=== PATIENT | female | born 1935 | race Caucasian/White ===

== ENCOUNTER 2017-10-01 13:38 | Observation (INO) ==
[2017-10-01] MEDS ORDERED: 0.9 % Sodium Chloride 1,000 ML IVC ONE (13:49)
[2017-10-01 14:07] LABS: Bilirubin,Urine Negative (Negative); Blood,Urine Trace (Negative); Clarity,Urine Cloudy (Clear); Color,Urine Yellow (Yellow); Glucose,Urine (UA) Normal (Normal); Ketones,Urine Negative (Negative); Leukocyte Esterase,Urine Trace (Negative); Nitrite,Urine Positive (Negative); Protein,Urine Negative (Neg-Trace); Specific Gravity,Urine 1.013 (1.010-1.025); Urobilinogen,Urine Normal (Normal)
[2017-10-01 14:09] LABS: Bacteria,Urine Many per hpf (None-Few); Hyaline Casts,Urine None Seen per lpf (None-Few); RBC,Urine 0-3 per hpf (0-3); Squamous Epithelial Cell,Urine Many per lpf (None-Few)
[2017-10-01 14:15] LABS: Basophils # 0.1 K/mcL (0.0-0.2); Basophils % 0.8 %; Eosinophils % 0.1 %; Hematocrit 42.2 % (35.3-44.9); Hemoglobin 13.2 g/dL (11.5-15.4); Immature Granulocytes % 0.9 % (0-4); Lymphocytes # 0.5 K/mcL (0.6-4.6); Lymphocytes % 6.2 %; Mean Corpuscular HGB Conc 31.3 g/dL (31.6-35.5); Mean Corpuscular Hemoglobin 29.2 pg (28.0-33.3); Mean Corpuscular Volume 93.4 fL (83.0-100.0); Mean Platelet Volume 9.9 fL (9.4-12.4); Monocytes # 0.5 K/mcL (0.0-1.3); Monocytes % 6.7 %; Neutrophils # 6.8 K/mcL (1.6-8.9); Platelet Count 271 K/mcL (140-400); Red Blood Count 4.52 M/mcL (3.82-4.97); Segmented Neutrophils % 85.3 %
[2017-10-01] MEDS ORDERED: cefTRIAXone 1,000 MG in Water for inj. (sterile) 10 ML IVP ONE (14:16)
--- NOTE | 2017-10-01 14:21 | Emergency Department Note ---
Disposition Clinical Impression: Near syncope, Hypokalemia, Hyponatremia, History of atrial fibrillation UTI (urinary tract infection) Qualifiers: Urinary tract infection type: site unspecified Hematuria presence: with hematuria Qualified Code(s): N39.0 - Urinary tract infection, site not specified ; R31.9 - Hematuria, unspecified; R31.9 - Hematuria, unspecified Disposition: Admitted As Inpatient Condition: Fair Time of Disposition: 15:07 Syncope HPI - General Chief Complaint: ED Syncope Stated Complaint: syncope Time Seen by Provider: 10/01/17 13:48 Nursing Notes Reviewed: Yes Vital Signs Reviewed: Yes - History of Present Illness HPI Narrative: 82-year-old female brought in for 2 day history of fatigue and UTI symptoms with dysuria, frequency. Patient states she was then say when she felt lightheaded and almost passed out. Patient's caught her and helped her to the floor. Patient brought in by EMS for the syncopal episode as well. - Related Data Home Medications Medication Instructions Recorded Confirmed Aspirin 325 mg PO DAILY 03/24/16 05/09/16 Calcium Carbonate [Calcium] 600 mg PO BID 03/24/16 05/09/16 Diltiazem CD (24hr) [Cardizem CD] 240 mg PO DAILY 03/24/16 05/09/16 Furosemide [Lasix] 40 - 80 mg PO DAILY 03/24/16 05/09/16 Metoprolol XL (24 HR) Succ [Toprol 100 mg PO DAILY 03/24/16 05/09/16 Xl] [place]-3/Dha/Epa/Fish Oil [Fish Oil 1,000 mg PO DAILY 03/24/16 05/09/16 Dr 500 mg Softgel] Omeprazole [PriLOSEC] 40 mg PO DAILY 03/24/16 05/09/16 Potassium Chloride [K-Tab ER] 10 meq PO DAILY 03/24/16 05/09/16 Atorvastatin [Lipitor] 40 mg PO Q48H 05/09/16 05/09/16 Iron Polysaccharide Complex 150 mg PO BID 05/09/16 05/09/16 [Ferrex 150] Nitroglycerin [Nitrostat] 0.4 mg SL Q5M PRN 05/09/16 05/09/16 Sucralfate [Carafate] 1 gm PO QIDAC 08/04/16 08/04/16 Latanoprost [Xalatan] 1 drop BOTH EYES HS 10/01/17 10/01/17 Timolol Maleate 0.5% [Timolol 1 drop BOTH EYES BID 10/01/17 10/01/17 Maleate 0.5%] Allergies Allergy/AdvReac Type Severity Reaction Status Date / Time No Known Allergies Allergy Verified 05/09/16 09:57 All systems ED: reviewed and negative except as stated. Review of Systems: As Per HPI Constitutional: Reports: weakness. Denies: fever, chills Eyes: Denies: vision change ENT ED: Denies: congestion Cardiovascular: Denies: chest pain Respiratory: Denies: cough, dyspnea, wheezes Gastrointestinal: Denies: abdominal pain, nausea, vomiting, diarrhea Genitourinary: Reports: urgency, dysuria, frequency Musculoskeletal: Denies: back pain, neck pain Past Medical History - Past Medical History Attestation: Yes The following information was validated with the patient. Source: patient, nursing notes reviewed Medical history: Reports: atrial fibrillation, coronary artery disease, hyperlipidemia, hypertension, TIA, other Surgical history: Reports: other Psychiatric history: Reports: no psych history - Social History Smoking Status: Former smoker Smokeless Tobacco Status: No Alcohol use: Reports: none Drug use: Reports: none Physical Exam Vital Signs Pulse Rate 80 10/01/17 14:02 Respiratory Rate 16 10/01/17 14:02 Blood Pressure 157/63 10/01/17 14:02 O2 Sat by Pulse Oximetry 95 10/01/17 14:02 Pulse Rate 80 10/01/17 14:02 Respiratory Rate 16 10/01/17 14:02 Blood Pressure 157/63 10/01/17 14:02 O2 Sat by Pulse Oximetry 95 10/01/17 14:02 Oxygen Delivery Oxygen Delivery Room Air 82-year-old female who is alert and oriented 3 in no acute distress. Patient has GCS of 15. Patient has a NIH score of 0. Vital signs normal with exception of blood pressure which is 157/63. - General Limitations: no limitations - Head Head exam: atraumatic, normocephalic, normal inspection - Eye Eye exam: Present: normal appearance, PERRL, EOMI - ENT ENT exam: normal exam, normal oropharynx, mucous membranes moist - Neck Neck exam: Present: normal inspection, full ROM, trachea midline - Chest Chest inspection: Present: normal inspection, symmetric chest wall rise - Respiratory Respiratory exam: Present: normal lung sounds bilaterally - Cardiovascular Cardiovascular exam: Present: regular rate, normal rhythm, normal heart sounds - Abdominal Exam Abdominal exam: Present: soft. Absent: tenderness, distention, guarding, rebound, rigidity Abdominal tenderness: Present: suprapubic - Extremities Exam Extremities exam: Present: normal inspection, full ROM. Absent: tenderness, pedal edema - Back Exam Back exam: Present: normal inspection, full ROM. Absent: tenderness, CVA tenderness (R), CVA tenderness (L) - Neurological Exam Neurological exam: Present: alert, oriented X3 - Skin Skin exam: Present: warm, dry, intact, normal color Syncope - MDM Narrative Medical decision making narrative: Presyncopal episode. Patient states she has been having dysuria and frequency for the past 2 days. Patient has had fatigue as well. Patient has a UTI on urinalysis and was started on ceftriaxone 1 g IV. Plans for patient to be admitted for syncopal episode secondary to urinary tract infection. Patient also has chemistry abnormalities for hyponatremia and hypokalemia. Patient started on oral potassium supplementation and has IV normal saline running. Patient is on her second liter. Chest x-ray clear of any pneumonia which shows some cardiomegaly, no pleural effusions Patient accepts decision for admission. Dr. House the hospitalist as except the patient for admission at 1505hrs. - Lab Data Lab results reviewed: Yes I reviewed the patient's lab results. Lab results narrative: Short CBC 10/01/17 Range/Units 14:08 WBC 7.9 (4.3-11.1) K/mcL Hgb 13.2 (11.5-15.4) g/dL Hct 42.2 (35.3-44.9) % Plt Count 271 (140-400) K/mcL Neutrophils # 6.8 (1.6-8.9) K/mcL BMP 10/01/17 Range/Units 14:08 Sodium 132 L (136-145) mEq/L Potassium 3.1 L (3.5-5.1) mEq/L Chloride 98 (98-107) mEq/L Carbon Dioxide 26 (23-29) mEq/L BUN 8 (8-23) mg/dL Creatinine 0.61 (0.60-1.20) mg/dL Glucose 179 H (70-105) mg/dL Calcium 9.0 (8.6-10.3) mg/dL Cardiac Enzymes 10/01/17 Range/Units 14:08 Troponin I < 0.03 (< 0.04) ng/mL Urine 10/01/17 Range/Units 14:02 Urine Color Yellow (Yellow) Urine Clarity Cloudy A (Clear) Urine pH 7.0 (5.0-8.0) pH Units Ur Specific [place] 1.013 (1.010-1.025) Urine Protein Negative (Neg-Trace) mg/dL Urine Glucose (UA) Normal (Normal) mg/dL - Radiology Data Radiology results reviewed: Yes I reviewed the patient's radiology results. Chest X-Ray 10/01/17 13:49 IMPRESSION: Cardiomegaly with questionable mild perihilar edema. No focal infiltrate or significant pleural fluid. D/ / Yohan Bernstein MD / Yohan Bernstein MD Interpreting Provider: Yohan Bernstein MD - EKG Data EKG attestation: Yes I reviewed and interpreted this EKG. EKG results narrative: EKG taken 10/01/2017 at 1330 hrs. shows A. fib at a rate of 87 bpm, patient has incomplete bundle branch block on read as well. Patient has some ST depression previous EKG also shows incomplete right of bundle branch block same morphology as today's EKG that EKG taken April 2016.
--- NOTE | 2017-10-01 14:22 | Emergency Department Note ---
START Narrative - START START: I examined this patient and my medical decision-making was reviewed with the Resident Physician. I agree with the documented findings, disposition and treatment plan as described except to the extent set forth below. 82-year-old female presented to the ER with near syncope and weakness. She does have evidence of urinary tract infection. She said some urinary symptoms. Her caught her today when she almost fell due to the weakness. She states she had some chest pain as well during this episode but has since resolved. No other complaints at this time other than just generalized weakness but she states she feels better now. She does have evidence of urinary tract infection. Positive nitrites. Patient was given antibiotics. She will need to be admitted for further cardiac evaluation and workup as well as treatment of her UTI.
[2017-10-01 14:29] LABS: BUN/Creatinine Ratio 13 (6-26); Blood Urea Nitrogen 8 mg/dL (8-23); Carbon Dioxide 26 mEq/L (23-29); Chloride 98 mEq/L (98-107); Glucose 179 mg/dL (70-105); Osmolality,Calculated 277 (280-300); Potassium 3.1 mEq/L (3.5-5.1); Sodium 132 mEq/L (136-145); eGFR For African Americans > 60 (> 60); eGFR For Non-African Americans > 60 (> 60)
--- NOTE | 2017-10-01 15:46 | Internal Med History&Physical ---
Date of Encounter: 10/02/17 Time of Encounter: 15:53 Assessment and Plan (1) UTI (urinary tract infection) Current visit: Yes Status: Acute We will start empiric ABs coverage Obtain Ur Cx and adjuxt ABs regimen accordingly Qualifiers: Urinary tract infection type: site unspecified Hematuria presence: with hematuria Qualified Code(s): N39.0 - Urinary tract infection, site not specified; R31.9 - Hematuria, unspecified; R31.9 - Hematuria, unspecified (2) Near syncope Current visit: Yes Status: Acute The patient denied blackout or feeling dizzy, She stated that her legs felt week and gave away. (3) CAD (coronary artery disease) Current visit: No Status: Chronic We will cont. home meds. Qualifiers: Coronary Disease-Associated Artery/Lesion type: [place] artery [place] vs. transplanted heart: [place] heart Associated angina: without angina Qualified Code(s): I25.10 - Atherosclerotic heart disease of [place] coronary artery without angina pectoris (4) Paroxysmal atrial fibrillation Current visit: No Status: Chronic She is in sinus rhythm , Cont home meds. (5) Chronic pulmonary hypertension Current visit: No Status: Chronic (6) HTN (hypertension) Current visit: No Status: Chronic We will cont home meds. Qualifiers: Hypertension type: essential hypertension Qualified Code(s): I10 - Essential (primary) hypertension (7) HLD (hyperlipidemia) Current visit: No Status: Chronic We will cont statin and obtain FLP in [place] Qualifiers: Hyperlipidemia type: unspecified Qualified Code(s): E78.5 - Hyperlipidemia , unspecified (8) Iron deficiency anemia Current visit: No Status: Chronic Hgb is stable, will cont iron supplements Qualifiers: Iron deficiency anemia type: inadequate dietary iron intake Qualified Code( s): D50.8 - Other iron deficiency anemias (9) Hyponatremia Current visit: Yes Status: Acute Mild hypovolimic hyponatermia, starting fluid hydration with isotonic solution. (10) Hypokalemia Current visit: Yes Status: Acute We will replace. (11) DVT prophylaxis Current visit: Yes Status: Acute We will place SCD. Internal Medicine - H&P: HPI Chief complaint: My legs gave away Admitted From: Home History of present illness: Ms. Mooney is a 82 year old female who present with 2 day history of fatigue dysuria, frequency. Patient denies syncope or near syncope , she started that her legs felt week when she was trying to stand up and they gave away. She conrad being lightheaded or passing out. Patient's caught her and helped her to the floor. Patient brought in by EMS for feeling week and fatigues. Labs was suggestive of UTI and she was admitted for further evaluation. Past Med Surg Social Fam HX - Past Medical History Medical history: atrial fibrillation, coronary artery disease, hyperlipidemia, hypertension, TIA, other Psychiatric history: no psych history - Past Surgical History Surgical History: other - Social History Smoking Status: Former smoker Smokeless Tobacco Status: No Alcohol use: none Drug use: none - Family History Mother History Unknown: Yes Internal Medicine - H&P: Meds Aspirin 325 mg PO DAILY 03/24/16 [History] Calcium Carbonate [Calcium] 600 mg PO BID 03/24/16 [History] Diltiazem CD (24hr) [Cardizem CD] 240 mg PO DAILY 03/24/16 [History] Furosemide [Lasix] 40 - 80 mg PO DAILY 03/24/16 [History] Metoprolol XL (24 HR) Succ [Toprol Xl] 100 mg PO DAILY 03/24/16 [History] [place]-3/Dha/Epa/Fish Oil [Fish Oil Dr 500 mg Softgel] 1,000 mg PO DAILY [History] Omeprazole [PriLOSEC] 40 mg PO DAILY 03/24/16 [History] Potassium Chloride [K-Tab ER] 10 meq PO DAILY 03/24/16 [History] Atorvastatin [Lipitor] 40 mg PO Q48H 05/09/16 [History] Iron Polysaccharide Complex [Ferrex 150] 150 mg PO BID 05/09/16 [History] Nitroglycerin [Nitrostat] 0.4 mg SL Q5M PRN 05/09/16 [History] Sucralfate [Carafate] 1 gm PO QID 05/09/16 [History] Latanoprost [Xalatan] 1 drop BOTH EYES HS 10/01/17 [History] Timolol Maleate 0.5% [Timolol Maleate 0.5%] 1 drop BOTH EYES BID 10/01/17 [ History] 3 Allergy/AdvReac Type Severity Reaction Status Date / Time No Known Allergies Allergy Verified 05/09/16 09:57 All Systems PM: A 10-system review of systems was performed and is negative for pertinent findings except as documented above in the HPI. - Constitutional Constitutional: fatigue, malaise, weakness, no chills, no fever(s), no night sweats - Cardiovascular Cardiovascular ROS IM: no chest pain, no diaphoresis, no dyspnea, no lightheadedness, no palpitations, no syncope - Respiratory Respiratory: no cough, no dyspnea, no wheezing, no excessive phlegm production - Gastrointestinal Gastrointestinal: no abdominal pain, no diarrhea, no hematemesis, no hematochezia, no melena, no nausea, no vomiting - Genitourinary Genitourinary: dysuria, urinary frequency, urinary urgency - Neurological Neurological ROS: no confusion, no convulsions, no focal weakness, no numbness, no tingling, no tremor(s) - Constitutional Vitals: Temp Pulse Resp BP Pulse Ox 97.5 F L 80 18 152/49 95 10/01/17 15:23 10/01/17 15:23 10/01/17 15:41 10/01/17 15:41 10/01/17 15:23 General appearance: Present: A&O X 3, pleasant - Head Head exam: Present: atraumatic, normocephalic - Neck Neck exam general surgery: Present: supple, trachea midline. Absent: lymphadenopathy - Respiratory Respiratory exam: Present: CTAB. Absent: accessory muscle use, rales, rhonchi, wheezes - Cardiovascular Cardiovascular exam: Present: RRR, +S1, +S2. Absent: diastolic murmur, gallop, rubs, systolic murmur - GI/Abdominal GI/Abdominal exam: Present: normal bowel sounds, soft, no peritoneal signs. Absent: distended, tenderness - Extremities Exam Extremities exam: Present: warm, radial pulses palpable and symmetrical. Absent : calf tenderness, cyanotic, pedal edema - Neurological Exam Neurological exam: Present: CN II-XII intact, oriented X3, no focal deficits. Absent: pronater drift, facial droop, speech deficit Internal Med - H&P Results - Labs CBC & Chem 7: 10/01/17 14:08 10/01/17 14:08
[2017-10-01] MEDS ORDERED: Naloxone 0.4 MG/ML INJ IVP PRN (16:02)
[2017-10-01] MEDS ORDERED: Nitroglycerin 0.4 MG TAB.SUBL SL PRN (16:07)
[2017-10-01] MEDS: 0.9 % Sodium Chloride 1,000 ML IVC SCH (17:17)
[2017-10-01] MEDS: Sucralfate 1 GM TABLET PO SCH ×2 (17:19→19:48)
[2017-10-01] MEDS: Iron Polysaccharide Complex 150 MG CAPSULE PO SCH (19:48)
[2017-10-01] MEDS: Latanoprost 2.5 ML BOTTLE BOTH EYES SCH (19:52)
[2017-10-02 05:08] LABS: BUN/Creatinine Ratio 13 (6-26); Blood Urea Nitrogen 8 mg/dL (8-23); eGFR For African Americans > 60 (> 60); eGFR For Non-African Americans > 60 (> 60)
[2017-10-02] MEDS: cefTRIAXone 1,000 MG in Water for inj. (sterile) 20 ML 10 ML IVP SCH (08:38)
[2017-10-02] MEDS: Aspirin 325 MG TABLET PO SCH (08:38)
[2017-10-02] MEDS: Metoprolol XL (24 HR) Succ 50 MG TAB.ER.24H PO SCH (08:38)
[2017-10-02] MEDS: Iron Polysaccharide Complex 150 MG CAPSULE PO SCH ×2 (08:38→20:05)
[2017-10-02] MEDS: Sucralfate 1 GM TABLET PO SCH ×4 (08:38→20:05)
[2017-10-02] MEDS: Diltiazem CD (24hr) 240 MG CAPSULE PO SCH (08:38)
[2017-10-02] MEDS: (Omega-3/Dha/Epa/Fish Oil [Fish Oil Dr 500 Mg Softgel) PO SCH (08:41)
[2017-10-02] MEDS: 0.9 % Sodium Chloride 1,000 ML IVC SCH (08:41)
--- NOTE | 2017-10-02 16:18 | Internal Med Progress Note ---
Date of Encounter: 10/02/17 Time of Encounter: 16:13 - Assessment and plan (1) UTI (urinary tract infection) Current Visit: Yes Status: Acute Qualifiers: Urinary tract infection type: site unspecified Hematuria presence: with hematuria Qualified Code(s): N39.0 - Urinary tract infection, site not specified; R31.9 - Hematuria, unspecified; R31.9 - Hematuria, unspecified (2) Acute bronchitis Current Visit: Yes Status: Acute Qualifiers: Bronchitis organism: unspecified organism Qualified Code(s): J20.9 - Acute bronchitis, unspecified (3) HTN (hypertension) Current Visit: No Status: Chronic Qualifiers: Hypertension type: essential hypertension Qualified Code(s): I10 - Essential (primary) hypertension (4) HLD (hyperlipidemia) Current Visit: No Status: Chronic Qualifiers: Hyperlipidemia type: unspecified Qualified Code(s): E78.5 - Hyperlipidemia , unspecified (5) CAD (coronary artery disease) Current Visit: No Status: Chronic Qualifiers: Coronary Disease-Associated Artery/Lesion type: [place] artery [place] vs. transplanted heart: [place] heart Associated angina: without angina Qualified Code(s): I25.10 - Atherosclerotic heart disease of [place] coronary artery without angina pectoris (6) Hypokalemia Current Visit: Yes Status: Acute Assessment and plan: CONTINUE IV ABX FOR UTI, FOLLOW URINE CULTURES MILD BRONCHITIS- ADD MUCINEX AND DOUNEBS, HAS HX OF REMOTE TOBACCO USE REPLACE ELECTROLYTES. CANCEL INPATIENT ORDER A REVIEW BY EHR AND A MEMBER OF THE UR COMMITTEE HAS DETERMINED THAT THE STATUS IS TO BE CHANGED TO OBSERVATION USING CONDITION CODE 44. I'M IN AGREEMENT. - Subjective Interval history: FEELS WEAK, DAUGHTER REPORTS PT HAS BEEN COUGHING - Constitutional Vitals: Temp Pulse Resp BP Pulse Ox 97.3 F L 65 18 116/61 89 10/02/17 15:33 10/02/17 15:33 10/02/17 15:33 10/02/17 15:33 10/02/17 15:33 General appearance: Present: A&O X 3, pleasant - Head Head exam: Present: atraumatic, normocephalic - Eye Eye exam: Present: PERRL, conjuntiva pink, sclera anicteric Pupils: Present: PERRL - Neck Neck exam general surgery: Present: supple, trachea midline. Absent: lymphadenopathy - Respiratory Respiratory exam: Present: rhonchi. Absent: accessory muscle use, CTAB, rales, wheezes - Cardiovascular Cardiovascular exam: Present: RRR, +S1, +S2. Absent: diastolic murmur, gallop, rubs, systolic murmur - GI/Abdominal GI/Abdominal exam: Present: normal bowel sounds, soft, no peritoneal signs. Absent: distended, tenderness - Extremities Exam Extremities exam: Present: warm, radial pulses palpable and symmetrical. Absent : calf tenderness, cyanotic, pedal edema - Neurological Exam Neurological exam: Present: CN II-XII intact, oriented X3, no focal deficits. Absent: pronater drift, facial droop, speech deficit - Skin Skin exam: Present: dry, intact Internal Medicine: Result - Labs CBC & Chem 7: 10/01/17 14:08 10/02/17 03:42 Labs: BMP 10/02/17 03:42 BUN 8 Creatinine 0.63 Consult Discharge Plan - Plan Referrals: David Linton DO [Primary Care Provider] -
[2017-10-02] MEDS ORDERED: Ipratropium/Albuterol Neb 3 ML IH STA (17:30)
--- NOTE | 2017-10-02 19:51 | Electrocardiograph Report ---
[address] [place] [address] Test Date: 2017-10-01 Pat Name: Barbra Mooney Department: 104 Room: 3B44 Gender: F [employer]: : [id number] Requested By: Jerardo Bernal Order Number: [id number] Reading MD: Isrrael Garcia MD Measurements Intervals [place] Rate: 87 P: AR: 0 QRS: 68 QRSD: 96 T: -16 QT: 357 QTc: 401 Interpretive Statements ATRIAL FIBRILLATION INCOMPLETE RIGHT BUNDLE BRANCH BLOCK Electronically Signed On 10-02-2017 19:49:54 EST by Isrrael Garcia MD
[2017-10-02] MEDS: Latanoprost 2.5 ML BOTTLE BOTH EYES SCH (20:05)
[2017-10-03 05:40] LABS: BUN/Creatinine Ratio 22 (6-26); Blood Urea Nitrogen 11 mg/dL (8-23); Calcium 8.4 mg/dL (8.6-10.3); Carbon Dioxide 22 mEq/L (23-29); Chloride 103 mEq/L (98-107); Glucose 102 mg/dL (70-105); Osmolality,Calculated 278 (280-300); Potassium 3.5 mEq/L (3.5-5.1); Sodium 134 mEq/L (136-145); eGFR For African Americans > 60 (> 60); eGFR For Non-African Americans > 60 (> 60)
[2017-10-03 05:55] LABS: Basophils % 0.5 %; Hemoglobin 12.2 g/dL (11.5-15.4); Immature Granulocytes % 1.1 % (0-4); Lymphocytes # 0.8 K/mcL (0.6-4.6); Lymphocytes % 15.2 %; Mean Corpuscular HGB Conc 31.3 g/dL (31.6-35.5); Mean Corpuscular Hemoglobin 29.5 pg (28.0-33.3); Mean Corpuscular Volume 94.4 fL (83.0-100.0); Mean Platelet Volume 10.1 fL (9.4-12.4); Monocytes # 0.6 K/mcL (0.0-1.3); Monocytes % 10.1 %; Platelet Count 209 K/mcL (140-400); Red Blood Count 4.13 M/mcL (3.82-4.97); Red Cell Distribution Width 15.9 % (11.5-14.5); Segmented Neutrophils % 73.1 %
[2017-10-03] MEDS: Iron Polysaccharide Complex 150 MG CAPSULE PO SCH ×2 (08:20→20:26)
[2017-10-03] MEDS: Aspirin 325 MG TABLET PO SCH (08:20)
[2017-10-03] MEDS: Sucralfate 1 GM TABLET PO SCH ×4 (08:20→20:26)
[2017-10-03] MEDS: Diltiazem CD (24hr) 240 MG CAPSULE PO SCH (08:21)
[2017-10-03] MEDS: cefTRIAXone 1,000 MG in Water for inj. (sterile) 20 ML 10 ML IVP SCH (08:21)
[2017-10-03] MEDS: Metoprolol XL (24 HR) Succ 50 MG TAB.ER.24H PO SCH (08:21)
[2017-10-03] MEDS: (Omega-3/Dha/Epa/Fish Oil [Fish Oil Dr 500 Mg Softgel) PO SCH (08:22)
[2017-10-03] MEDS ORDERED: methylPREDNISolone 125 MG/2 ML VIAL IVP STA (10:28)
--- NOTE | 2017-10-03 10:37 | Internal Med Progress Note ---
Date of Encounter: 10/03/17 Time of Encounter: 10:34 - Assessment and plan (1) UTI (urinary tract infection) Current Visit: Yes Status: Acute Qualifiers: Urinary tract infection type: site unspecified Hematuria presence: with hematuria Qualified Code(s): N39.0 - Urinary tract infection, site not specified; R31.9 - Hematuria, unspecified; R31.9 - Hematuria, unspecified (2) Acute bronchitis Current Visit: Yes Status: Acute Qualifiers: Bronchitis organism: unspecified organism Qualified Code(s): J20.9 - Acute bronchitis, unspecified (3) HTN (hypertension) Current Visit: No Status: Chronic Qualifiers: Hypertension type: essential hypertension Qualified Code(s): I10 - Essential (primary) hypertension (4) HLD (hyperlipidemia) Current Visit: No Status: Chronic Qualifiers: Hyperlipidemia type: unspecified Qualified Code(s): E78.5 - Hyperlipidemia , unspecified (5) CAD (coronary artery disease) Current Visit: No Status: Chronic Qualifiers: Coronary Disease-Associated Artery/Lesion type: [place] artery [place] vs. transplanted heart: [place] heart Associated angina: without angina Qualified Code(s): I25.10 - Atherosclerotic heart disease of [place] coronary artery without angina pectoris (6) Hypokalemia Current Visit: Yes Status: Acute Assessment and plan: 82YO FEMALE WHO PRESENTED WITH NEAR SYNCOPE AND FOUND TO HAVE UTI AND BRONCHITIS. CONTINUE IV ABX FOR UTI, STILL WAITING FOR URINE CULTURES. ACUTE BRONCHITIS WITH BRONCHOSPASM- NOW WHEEZING, WILL ADD STEROIDS, CONTINUE MUCINEX AND DOUNEBS, HAS HX OF REMOTE TOBACCO USE MONIOTOR ELECTROLYTES. - Subjective Interval history: FEELS WEAK, DAUGHTER REPORTS PT HAS BEEN COUGHING - Constitutional Vitals: Temp Pulse Resp BP Pulse Ox 99.1 F 82 16 150/58 92 10/03/17 07:20 10/03/17 07:20 10/03/17 07:20 10/03/17 07:20 10/03/17 07:20 General appearance: Present: A&O X 3, pleasant - Head Head exam: Present: atraumatic, normocephalic - Eye Eye exam: Present: PERRL, conjuntiva pink, sclera anicteric Pupils: Present: PERRL - Neck Neck exam general surgery: Present: supple, trachea midline. Absent: lymphadenopathy - Respiratory Respiratory exam: Present: decreased breath sounds, rhonchi, wheezes. Absent: accessory muscle use, rales - Cardiovascular Cardiovascular exam: Present: RRR, +S1, +S2. Absent: diastolic murmur, gallop, rubs, systolic murmur - GI/Abdominal GI/Abdominal exam: Present: normal bowel sounds, soft, no peritoneal signs. Absent: distended, tenderness - Extremities Exam Extremities exam: Present: warm, radial pulses palpable and symmetrical. Absent : calf tenderness, cyanotic, pedal edema - Neurological Exam Neurological exam: Present: CN II-XII intact, oriented X3, no focal deficits. Absent: pronater drift, facial droop, speech deficit - Skin Skin exam: Present: dry, intact Internal Medicine: Result - Labs CBC & Chem 7: 10/03/17 05:05 10/03/17 05:05 Labs: Short CBC 10/03/17 Range/Units 05:05 WBC 5.5 (4.3-11.1) K/mcL Hgb 12.2 (11.5-15.4) g/dL Hct 39.0 (35.3-44.9) % Plt Count 209 (140-400) K/mcL Neutrophils # 4.0 (1.6-8.9) K/mcL BMP 10/03/17 05:05 Sodium 134 L Potassium 3.5 Chloride 103 Carbon Dioxide 22 L BUN 11 Creatinine 0.49 L Glucose 102 Calcium 8.4 L Consult Discharge Plan - Plan Referrals: David Linton DO [Primary Care Provider] -
[2017-10-03] MEDS ORDERED: Ipratropium/Albuterol Neb 3 ML ONE (16:01)
[2017-10-03] MEDS: Ipratropium/Albuterol Neb 3 ML IH SCH ×3 (16:03→23:51)
[2017-10-03] MEDS: methylPREDNISolone 125 MG/2 ML VIAL IVP SCH ×2 (16:14→20:42)
[2017-10-03] MEDS: Latanoprost 2.5 ML BOTTLE BOTH EYES SCH (20:27)
[2017-10-04] MEDS: Ipratropium/Albuterol Neb 3 ML IH SCH ×5 (03:55→20:04)
[2017-10-04] MEDS: methylPREDNISolone 125 MG/2 ML VIAL IVP SCH ×4 (05:00→21:18)
[2017-10-04 05:13] LABS: Hematocrit 39.3 % (35.3-44.9); Hemoglobin 12.5 g/dL (11.5-15.4); Immature Granulocytes % 0.8 % (0-4); Lymphocytes # 0.6 K/mcL (0.6-4.6); Lymphocytes % 22.9 %; Mean Corpuscular HGB Conc 31.8 g/dL (31.6-35.5); Mean Corpuscular Hemoglobin 29.7 pg (28.0-33.3); Mean Corpuscular Volume 93.3 fL (83.0-100.0); Mean Platelet Volume 10.3 fL (9.4-12.4); Monocytes # 0.2 K/mcL (0.0-1.3); Monocytes % 7.9 %; Neutrophils # 1.7 K/mcL (1.6-8.9); Platelet Count 215 K/mcL (140-400); Red Blood Count 4.21 M/mcL (3.82-4.97); Red Cell Distribution Width 15.7 % (11.5-14.5); Segmented Neutrophils % 68.4 %
[2017-10-04 05:21] LABS: BUN/Creatinine Ratio 24 (6-26); Blood Urea Nitrogen 14 mg/dL (8-23); Calcium 8.6 mg/dL (8.6-10.3); Carbon Dioxide 25 mEq/L (23-29); Chloride 103 mEq/L (98-107); Glucose 211 mg/dL (70-105); Osmolality,Calculated 287 (280-300); Potassium 3.7 mEq/L (3.5-5.1); Sodium 135 mEq/L (136-145); eGFR For African Americans > 60 (> 60); eGFR For Non-African Americans > 60 (> 60)
[2017-10-04] MEDS: Sucralfate 1 GM TABLET PO SCH ×4 (09:33→21:10)
[2017-10-04] MEDS: Iron Polysaccharide Complex 150 MG CAPSULE PO SCH ×2 (09:33→21:10)
[2017-10-04] MEDS: Diltiazem CD (24hr) 240 MG CAPSULE PO SCH (09:33)
[2017-10-04] MEDS: Metoprolol XL (24 HR) Succ 50 MG TAB.ER.24H PO SCH (09:33)
[2017-10-04] MEDS: Aspirin 325 MG TABLET PO SCH (09:33)
[2017-10-04] MEDS: cefTRIAXone 1,000 MG in Water for inj. (sterile) 20 ML 10 ML IVP SCH (09:34)
[2017-10-04] MEDS: (Omega-3/Dha/Epa/Fish Oil [Fish Oil Dr 500 Mg Softgel) PO SCH (09:40)
--- NOTE | 2017-10-04 18:50 | Internal Med Progress Note ---
Date of Encounter: 10/04/17 Time of Encounter: 11:25 - Assessment and plan (1) Acute bronchitis Current Visit: Yes Status: Acute Assessment and plan: Acute bronchitis - symptoms slowly improving Continue DuoNeb breathing treatment, IV Rocephin, IV Solu-Medrol, O2 via [place] Cardiac telemetry, monitor closely, anticipate discharge tomorrow Qualifiers: Bronchitis organism: unspecified organism Qualified Code(s): J20.9 - Acute bronchitis, unspecified (2) UTI (urinary tract infection) Current Visit: Yes Status: Acute Assessment and plan: UTI, present on admission Continue IV Rocephin Cultures - no growth Qualifiers: Urinary tract infection type: site unspecified Hematuria presence: with hematuria Qualified Code(s): N39.0 - Urinary tract infection, site not specified; R31.9 - Hematuria, unspecified; R31.9 - Hematuria, unspecified (3) HTN (hypertension) Current Visit: Yes Status: Chronic Assessment and plan: Continue Lipitor Qualifiers: Hypertension type: essential hypertension Qualified Code(s): I10 - Essential (primary) hypertension (4) HLD (hyperlipidemia) Current Visit: No Status: Chronic Qualifiers: Hyperlipidemia type: unspecified Qualified Code(s): E78.5 - Hyperlipidemia , unspecified (5) CAD (coronary artery disease) Current Visit: Yes Status: Chronic Assessment and plan: Stable, continue Aspirin, Lipitor Qualifiers: Coronary Disease-Associated Artery/Lesion type: [place] artery [place] vs. transplanted heart: [place] heart Associated angina: without angina Qualified Code(s): I25.10 - Atherosclerotic heart disease of [place] coronary artery without angina pectoris (6) DVT prophylaxis Current Visit: Yes Status: Acute Assessment and plan: Heparin subcutaneous - Time Spent With Patient 25 - 35 minutes - Subjective Interval history: Examined this morning. Patient is awake and alert. Denies chest pain or shortness of breath. States she feels better. No fever. Hemodynamically stable. Tolerating oral diet well. Ambulating with minimal assistance. Complains of mild generalized weakness. No other acute events or complaints. Admitted for UTI and acute bronchitis. Symptoms seem to be improving. - Constitutional Vitals: Temp Pulse Resp BP Pulse Ox 97.5 F L 75 16 120/63 92 10/04/17 18:35 10/04/17 18:35 10/04/17 18:35 10/04/17 18:35 10/04/17 18:35 General appearance: Present: cooperative, A&O X 3, pleasant, no acute distress, obese, answers questions appropriately - Head Head exam: Present: atraumatic - Eye Eye exam: Present: EOMI - ENT ENT exam: Present: mucous membranes moist - Respiratory Respiratory exam: Present: CTAB. Absent: accessory muscle use, chest wall tenderness, rales, respiratory distress, rhonchi, wheezes, tachypnea - Cardiovascular Cardiovascular exam: Present: RRR, +S1, +S2 - GI/Abdominal GI/Abdominal exam: Present: soft. Absent: distended, firm, guarding, tenderness - Extremities Exam Extremities exam: Present: radial pulses palpable and symmetrical. Absent: calf tenderness, cyanotic, pedal edema - Neurological Exam Neurological exam: Present: alert, oriented X3, no focal deficits. Absent: facial droop, speech deficit Internal Medicine: Result - Labs CBC & Chem 7: 10/04/17 04:54 10/04/17 04:54 Labs: Short CBC 10/04/17 Range/Units 04:54 WBC 2.5 L D (4.3-11.1) K/mcL Hgb 12.5 (11.5-15.4) g/dL Hct 39.3 (35.3-44.9) % Plt Count 215 (140-400) K/mcL Neutrophils # 1.7 (1.6-8.9) K/mcL BMP 10/04/17 04:54 Sodium 135 L Potassium 3.7 Chloride 103 Carbon Dioxide 25 BUN 14 Creatinine 0.58 L Glucose 211 H Calcium 8.6 Consult Discharge Plan - Plan Referrals: David Linton DO [Primary Care Provider] -
[2017-10-04] MEDS: Latanoprost 2.5 ML BOTTLE BOTH EYES SCH (21:12)
[2017-10-04] MEDS: *HR* Heparin 5,000 UNIT/ML VIAL SQ SCH (21:14)
[2017-10-05] MEDS: Ipratropium/Albuterol Neb 3 ML IH SCH ×7 (00:01→23:31)
[2017-10-05] MEDS: methylPREDNISolone 125 MG/2 ML VIAL IVP SCH ×4 (04:38→21:37)
[2017-10-05] MEDS: *HR* Heparin 5,000 UNIT/ML VIAL SQ SCH ×2 (04:42→18:29)
[2017-10-05] MEDS: Aspirin 325 MG TABLET PO SCH (07:52)
[2017-10-05] MEDS: Metoprolol XL (24 HR) Succ 50 MG TAB.ER.24H PO SCH (07:52)
[2017-10-05] MEDS: cefTRIAXone 1,000 MG in Water for inj. (sterile) 20 ML 10 ML IVP SCH (07:52)
[2017-10-05] MEDS: Sucralfate 1 GM TABLET PO SCH ×4 (07:53→21:35)
[2017-10-05] MEDS: (Omega-3/Dha/Epa/Fish Oil [Fish Oil Dr 500 Mg Softgel) PO SCH (07:53)
[2017-10-05] MEDS: Iron Polysaccharide Complex 150 MG CAPSULE PO SCH ×2 (07:53→21:35)
[2017-10-05] MEDS: Diltiazem CD (24hr) 240 MG CAPSULE PO SCH (07:53)
--- NOTE | 2017-10-05 17:04 | Internal Med Progress Note ---
Date of Encounter: 10/05/17 Time of Encounter: 10:20 - Assessment and plan (1) Acute bronchitis Current Visit: Yes Status: Acute Assessment and plan: Acute bronchitis - symptoms now improved Continue DuoNeb breathing treatment, IV Rocephin, IV Solu-Medrol Wean off O2 via [place] Cardiac telemetry, monitor closely, anticipate discharge tomorrow in a.m. Qualifiers: Bronchitis organism: unspecified organism Qualified Code(s): J20.9 - Acute bronchitis, unspecified (2) UTI (urinary tract infection) Current Visit: Yes Status: Acute Assessment and plan: UTI, present on admission - resolved Continue IV Rocephin Cultures - no growth Qualifiers: Urinary tract infection type: site unspecified Hematuria presence: with hematuria Qualified Code(s): N39.0 - Urinary tract infection, site not specified; R31.9 - Hematuria, unspecified; R31.9 - Hematuria, unspecified (3) HTN (hypertension) Current Visit: Yes Status: Chronic Assessment and plan: Essential hypertension, controlled, monitor Continue Cardizem, Toprol-XL Qualifiers: Hypertension type: essential hypertension Qualified Code(s): I10 - Essential (primary) hypertension (4) HLD (hyperlipidemia) Current Visit: No Status: Chronic Assessment and plan: Continue Lipitor Qualifiers: Hyperlipidemia type: unspecified Qualified Code(s): E78.5 - Hyperlipidemia , unspecified (5) CAD (coronary artery disease) Current Visit: Yes Status: Chronic Assessment and plan: Stable, continue Aspirin, Lipitor Qualifiers: Coronary Disease-Associated Artery/Lesion type: [place] artery [place] vs. transplanted heart: [place] heart Associated angina: without angina Qualified Code(s): I25.10 - Atherosclerotic heart disease of [place] coronary artery without angina pectoris (6) DVT prophylaxis Current Visit: Yes Status: Acute Assessment and plan: Heparin subcutaneous - Time Spent With Patient 25 - 35 minutes - Subjective Interval history: Examined this morning. Patient is awake and alert. Denies chest pain or shortness of breath. States she feels better. No fever. Hemodynamically stable. Tolerating oral diet well. Ambulating with minimal assistance. No other acute events or complaints. Patient is now only on 1 L O2 via [place] and we will try to wean off oxygen today. Admitted for UTI and acute bronchitis. Symptoms seem to be improving. Anticipate discharge in a.m. tomorrow. - Constitutional Vitals: Temp Pulse Resp BP Pulse Ox 97.7 F 73 20 127/70 98 10/05/17 16:04 10/05/17 16:04 10/05/17 16:04 10/05/17 16:04 10/05/17 16:04 General appearance: Present: cooperative, A&O X 3, pleasant, no acute distress, obese, answers questions appropriately - Head Head exam: Present: atraumatic - Eye Eye exam: Present: EOMI - ENT ENT exam: Present: mucous membranes moist - Respiratory Respiratory exam: Present: CTAB. Absent: accessory muscle use, chest wall tenderness, rales, respiratory distress, rhonchi, wheezes, tachypnea - Cardiovascular Cardiovascular exam: Present: RRR, +S1, +S2 - GI/Abdominal GI/Abdominal exam: Present: soft. Absent: distended, firm, guarding, tenderness - Extremities Exam Extremities exam: Present: radial pulses palpable and symmetrical. Absent: calf tenderness, cyanotic, pedal edema - Neurological Exam Neurological exam: Present: alert, oriented X3, no focal deficits. Absent: facial droop, speech deficit Internal Medicine: Result - Labs CBC & Chem 7: 10/04/17 04:54 10/04/17 04:54 Consult Discharge Plan - Plan Referrals: David Linton DO [Primary Care Provider] -
[2017-10-05] MEDS: Latanoprost 2.5 ML BOTTLE BOTH EYES SCH (21:36)
[2017-10-06] MEDS: Ipratropium/Albuterol Neb 3 ML IH SCH ×4 (03:38→15:50)
[2017-10-06] MEDS: methylPREDNISolone 125 MG/2 ML VIAL IVP SCH ×2 (05:11→09:24)
[2017-10-06] MEDS: *HR* Heparin 5,000 UNIT/ML VIAL SQ SCH (05:11)
[2017-10-06] MEDS: Diltiazem CD (24hr) 240 MG CAPSULE PO SCH (08:36)
[2017-10-06] MEDS: cefTRIAXone 1,000 MG in Water for inj. (sterile) 20 ML 10 ML IVP SCH (08:36)
[2017-10-06] MEDS: Iron Polysaccharide Complex 150 MG CAPSULE PO SCH (08:36)
[2017-10-06] MEDS: Aspirin 325 MG TABLET PO SCH (08:37)
[2017-10-06] MEDS: Metoprolol XL (24 HR) Succ 50 MG TAB.ER.24H PO SCH (08:38)
[2017-10-06] MEDS: Sucralfate 1 GM TABLET PO SCH ×2 (08:38→17:21)
[2017-10-06] MEDS ORDERED: Furosemide 40 MG TABLET PO SCH (09:00)
[2017-10-06] MEDS: (Omega-3/Dha/Epa/Fish Oil [Fish Oil Dr 500 Mg Softgel) PO SCH (09:22)
[2017-10-06 15:05] VITALS: BP 122/73
--- NOTE | 2017-10-06 15:29 | Discharge Summary ---
Date of Encounter: 10/06/17 Time of Encounter: 10:10 - Discharge Diagnosis (1) Acute bronchitis Priority: Primary Status: Acute Comments: Acute bronchitis with acute exacerbation of probable asthma - symptoms now improved Continue DuoNeb breathing treatment at home, O2 via [place], continue Omnicef 3 days Prednisone tapering dose Patient qualifies for home oxygen for continuous use at 2 L/m Patient was given a prescription for a nebulizer machine Patient states she feels better today, stable for discharge, advised return if symptoms worsen Follow-up with primary care physician Qualifiers: Bronchitis organism: unspecified organism Qualified Code(s): J20.9 - Acute bronchitis, unspecified (2) UTI (urinary tract infection) Priority: Primary Status: Acute Comments: UTI, present on admission - resolved Cultures - no growth Qualifiers: Urinary tract infection type: site unspecified Hematuria presence: with hematuria Qualified Code(s): N39.0 - Urinary tract infection, site not specified; R31.9 - Hematuria, unspecified; R31.9 - Hematuria, unspecified (3) HTN (hypertension) Priority: Primary Status: Chronic Comments: Essential hypertension, controlled, monitor Continue Cardizem, Toprol-XL Qualifiers: Hypertension type: essential hypertension Qualified Code(s): I10 - Essential (primary) hypertension (4) HLD (hyperlipidemia) Priority: Primary Status: Chronic Comments: Continue Lipitor Qualifiers: Hyperlipidemia type: unspecified Qualified Code(s): E78.5 - Hyperlipidemia , unspecified (5) CAD (coronary artery disease) Priority: Primary Status: Chronic Comments: Stable, continue Aspirin, Lipitor - no anginal symptoms Qualifiers: Coronary Disease-Associated Artery/Lesion type: [place] artery [place] vs. transplanted heart: [place] heart Associated angina: without angina Qualified Code(s): I25.10 - Atherosclerotic heart disease of [place] coronary artery without angina pectoris - Discharge Medications Prescriptions: Ipratropium/Albuterol Neb [Duoneb] 3 ml IH [id number] PRN #60 inhsol PRN Reason: Shortness Of Breath/Wheezing Cefdinir [Omnicef] 300 mg PO BID 3 Days #6 capsule GuaiFENesin ER [Mucinex] 600 mg PO BID PRN #10 tbbp.12hr PRN Reason: Cough predniSONE [PredniSONE] 20 mg PO DAILY #10 tablet Home Medications: Aspirin 325 mg PO DAILY 03/24/16 [History] Calcium Carbonate [Calcium] 600 mg PO BID 03/24/16 [History] Diltiazem CD (24hr) [Cardizem CD] 240 mg PO DAILY 03/24/16 [History] Furosemide [Lasix] 40 - 80 mg PO DAILY 03/24/16 [History] Metoprolol XL (24 HR) Succ [Toprol Xl] 100 mg PO DAILY 03/24/16 [History] [place]-3/Dha/Epa/Fish Oil [Fish Oil Dr 500 mg Softgel] 1,000 mg PO DAILY [History] Omeprazole [PriLOSEC] 40 mg PO DAILY 03/24/16 [History] Potassium Chloride [K-Tab ER] 10 meq PO DAILY 03/24/16 [History] Atorvastatin [Lipitor] 40 mg PO Q48H 05/09/16 [History] Iron Polysaccharide Complex [Ferrex 150] 150 mg PO BID 05/09/16 [History] Nitroglycerin [Nitrostat] 0.4 mg SL Q5M PRN 05/09/16 [History] Sucralfate [Carafate] 1 gm PO QID 05/09/16 [History] Latanoprost [Xalatan] 1 drop BOTH EYES HS 10/01/17 [History] Timolol Maleate 0.5% 1 drop BOTH EYES BID 10/01/17 [History] Cefdinir [Omnicef] 300 mg PO BID 3 Days #6 capsule 10/06/17 [Rx] GuaiFENesin ER [Mucinex] 600 mg PO BID PRN #10 tbbp.12hr 10/06/17 [Rx] Ipratropium/Albuterol Neb [Duoneb] 3 ml IH [id number] PRN #60 inhsol 10/06/17 [Rx] predniSONE [PredniSONE] 20 mg PO DAILY #10 tablet 10/06/17 [Rx] Allergies/Adverse Reactions: 3 Allergy/AdvReac Type Severity Reaction Status Date / Time No Known Allergies Allergy Verified 05/09/16 09:57 Date of admission: 10/01/17 15:26 Primary care physician: Jennifer Brantley Consults: 10/03/17 10:48 Consult to [employer] [CONS] Routine Reason for SW Consult: oxygen set up Anticipated date of discharge: 10/06/17 - Patient Status Disposition: Home Health Service Condition: Good Functional capacity at discharge: uses cane/walker Overall status at discharge: patient is back to baseline - Discharge Instructions Follow Up With: David Linton DO [Primary Care Provider] - - Diet and Activity Activity: increase activity as tolerated, wear oxygen at all times Diet: low fat, low cholesterol Hospital course: Ms. Mooney is a 82 year old female with past medical history of atrial fibrillation, coronary artery disease, hyperlipidemia, hypertension and TIA. Patient presented to the ED with complaints of fatigue and dysuria and increased urinary frequency. Initial labs are suggestive of UTI. Patient stated that her legs just gave way and she was complaining of generalized weakness. Patient was also having some wheezing and was admitted for acute bronchitis. Patient was started on DuoNeb breathing treatment and IV Rocephin and IV Solu-Medrol. She was also hypoxic and required supplemental oxygen via nasal cannula. Patient likely has underlying asthma with acute bronchitis. She will need to continue oxygen at home. Urine culture did not show any growth. Continue home medications including aspirin and Lipitor. Patient was also continued on Cardizem and Toprol-XL. Patient was hypoxic on room air. She did qualify for home oxygen. She has been advised to use 2 L/m oxygen via nasal cannula. Patient has minimal wheezing at this time and has been advised to continue DuoNeb breathing treatment at home. Patient and have been explained about her condition and plan of care in detail. They understood and agreed. No unanswered questions. Patient states she feels better and wants to go home today. She is tolerating her diet well and ambulating with minimal assistance. No other acute events or complications during her stay in the hospital. Advised to return if symptoms worsen. Follow up with primary care physician. - Time Spent with Patient Total time spent providing and/or coordinating discharge services: Less than 30 minutes - Constitutional Vitals: Temp Pulse Resp BP Pulse Ox 97.4 F L 67 17 122/73 94 10/06/17 15:02 10/06/17 15:02 10/06/17 15:02 10/06/17 15:02 10/06/17 15:02 General appearance: Present: cooperative, A&O X 3, pleasant, no acute distress, obese, answers questions appropriately - Head Head exam: Present: atraumatic - Eye Eye exam: Present: EOMI - ENT ENT exam: Present: mucous membranes moist - Respiratory Respiratory exam: Present: wheezes (Mild bilateral). Absent: accessory muscle use, chest wall tenderness, rales, respiratory distress, rhonchi, tachypnea - Cardiovascular Cardiovascular exam: Present: RRR, +S1, +S2 - GI/Abdominal GI/Abdominal exam: Present: soft. Absent: distended, firm, guarding, tenderness - Extremities Exam Extremities exam: Present: radial pulses palpable and symmetrical. Absent: calf tenderness, cyanotic, pedal edema - Neurological Exam Neurological exam: Present: alert, oriented X3, no focal deficits. Absent: facial droop, speech deficit
--- NOTE | 2017-10-06 15:51 | Physician Discharge Referral ---
Home Health/Hosp Referral Info Transfer to: Home Health Provider in Charge Post Discharge: PCP - Diagnosis (1) Acute bronchitis Priority: Primary Status: Acute (2) UTI (urinary tract infection) Priority: Primary Status: Acute (3) HTN (hypertension) Priority: Primary Status: Chronic (4) HLD (hyperlipidemia) Priority: Primary Status: Chronic (5) CAD (coronary artery disease) Priority: Primary Status: Chronic - Respiratory Orders Oxygen / L per min (Liters per minute) Smoking Cessation: Smoking cessation has been advised. For more information, call the [place] Tobacco Quit Line at 2-103-TCQQ-NOW. - Diet/Nutrition Diet/Nutrition Orders: Cardiac - Activity Activity Orders: Ambulate - Services Needed Following services are medically necessary services: Nursing, Physical Therapy, Occupational Therapy - Transfer Medications Prescriptions: Ipratropium/Albuterol Neb [Duoneb] 3 ml IH [id number] PRN #60 inhsol PRN Reason: Shortness Of Breath/Wheezing Cefdinir [Omnicef] 300 mg PO BID 3 Days #6 capsule GuaiFENesin ER [Mucinex] 600 mg PO BID PRN #10 tbbp.12hr PRN Reason: Cough predniSONE [PredniSONE] 20 mg PO DAILY #10 tablet Home Medications: Aspirin 325 mg PO DAILY 03/24/16 [History] Calcium Carbonate [Calcium] 600 mg PO BID 03/24/16 [History] Diltiazem CD (24hr) [Cardizem CD] 240 mg PO DAILY 03/24/16 [History] Furosemide [Lasix] 40 - 80 mg PO DAILY 03/24/16 [History] Metoprolol XL (24 HR) Succ [Toprol Xl] 100 mg PO DAILY 03/24/16 [History] [place]-3/Dha/Epa/Fish Oil [Fish Oil Dr 500 mg Softgel] 1,000 mg PO DAILY [History] Omeprazole [PriLOSEC] 40 mg PO DAILY 03/24/16 [History] Potassium Chloride [K-Tab ER] 10 meq PO DAILY 03/24/16 [History] Atorvastatin [Lipitor] 40 mg PO Q48H 05/09/16 [History] Iron Polysaccharide Complex [Ferrex 150] 150 mg PO BID 05/09/16 [History] Nitroglycerin [Nitrostat] 0.4 mg SL Q5M PRN 05/09/16 [History] Sucralfate [Carafate] 1 gm PO QID 05/09/16 [History] Latanoprost [Xalatan] 1 drop BOTH EYES HS 10/01/17 [History] Timolol Maleate 0.5% 1 drop BOTH EYES BID 10/01/17 [History] Cefdinir [Omnicef] 300 mg PO BID 3 Days #6 capsule 10/06/17 [Rx] GuaiFENesin ER [Mucinex] 600 mg PO BID PRN #10 tbbp.12hr 10/06/17 [Rx] Ipratropium/Albuterol Neb [Duoneb] 3 ml IH [id number] PRN #60 inhsol 10/06/17 [Rx] predniSONE [PredniSONE] 20 mg PO DAILY #10 tablet 10/06/17 [Rx] Allergies/Adverse Reactions: 3 Allergy/AdvReac Type Severity Reaction Status Date / Time No Known Allergies Allergy Verified 05/09/16 09:57 Certification: Further, I certify that my clinical findings support that this patient is homebound (i.e. absences from home require considerable and taxing effort and are for medical reasons or scientologist services or infrequently or short duration when for other reasons) because: Homebound Reason: Patient requires assistance of a person or device to safely leave home Attestation: My signature below is to certify that this patient is under my care and that I, or nurse practitioner, or a physician's assistant associate full professor working with me, has a face-to -face encounter with this patient.
== END 2017-10-06 17:32 | disposition home health service (06) ==
LOC: 3BNU 13:38 → EMEROO 13:38 → 3BNU 15:44
PROVIDERS: ADMIT Internal Medicine Nephrology; ATTEND Registered Nurse

== ENCOUNTER 2018-08-31 16:44 | Inpatient (IN) ==
[2018-08-31] MEDS ORDERED: Isovue-370 500 ML INFUS..BTL IV ONE ×2 (17:01→17:07)
--- NOTE | 2018-08-31 17:01 | Emergency Department Note ---
Disposition Clinical Impression: Fall Qualifiers: Encounter type: initial encounter Qualified Code(s): W19.XXXA - Unspecified fall, initial encounter Disposition: Admitted As Inpatient Condition: Good Referrals: David Linton DO [Primary Care Provider] - Forms: ED Satisfaction Letter General Adult HPI - General Chief complaint: ED Weakness Stated complaint: fall Time Seen by Provider: 08/31/18 16:48 Nursing Notes Reviewed: Yes Vital Signs Reviewed: Yes - History of Present Illness HPI Narrative: 82-year-old female presents emergency department with concern for left-sided we akness. Patient states that her last known well was at 9:30 AM today. Reports that she was walking and became lightheaded and fell. Reports that she was having left-sided rib pain. EMS, who brought her in, states that her found her home at 1300. He reports that she was very weak and cannot stand. Patient's history of CVAs. Does not have any residual neurologic deficits from them. Patient reports that the only thing she is experiencing is weakness or left arm. EMS reports that patient's oxygen saturation was in the mid to high 80s and she required 3 L of oxygen via nasal cannula. states that she does not have oxygen at home. Patient denies any fever, cough, shortness of breath, chest pain, pressure, tightness, palpitations. - Related Data Home Medications Medication Instructions Recorded Confirmed Calcium Carbonate [Calcium] 600 mg PO BID 03/24/16 08/31/18 Diltiazem CD (24hr) [Cardizem CD] 240 mg PO DAILY 03/24/16 08/31/18 Furosemide [Lasix] 40 - 80 mg PO DAILY 03/24/16 08/31/18 Metoprolol XL (24 HR) Succ [Toprol 100 mg PO DAILY 03/24/16 08/31/18 Xl] Omeprazole [PriLOSEC] 40 mg PO DAILY 03/24/16 08/31/18 Potassium Chloride [K-Tab ER] 10 meq PO BID 03/24/16 08/31/18 Atorvastatin [Lipitor] 40 mg PO Q48H 05/09/16 08/31/18 Iron Polysaccharide Complex 150 mg PO BID 05/09/16 08/31/18 [Ferrex 150] Nitroglycerin [Nitrostat] 0.4 mg SL Q5M PRN 05/09/16 08/31/18 Sucralfate [Carafate] 1 gm PO QID 05/09/16 08/31/18 Latanoprost [Xalatan] 1 drop BOTH EYES HS 10/01/17 08/31/18 Timolol Maleate 0.5% 1 drop BOTH EYES BID 10/01/17 08/31/18 Clopidogrel [Plavix] 75 mg PO DAILY 08/31/18 08/31/18 Doxepin HCl 10 mg PO HS 08/31/18 08/31/18 [place]-3/Dha/Epa/Fish Oil [Fish Oil 1 tab PO DAILY 08/31/18 08/31/18 1,000 mg Softgel] Allergies Allergy/AdvReac Type Severity Reaction Status Date / Time No Known Allergies Allergy Verified 05/09/16 09:57 All systems ED: reviewed and negative except as stated. Review of Systems: As Per HPI Constitutional: Denies: fever Cardiovascular: Denies: chest pain, palpitations, syncope Respiratory: Denies: cough, dyspnea Gastrointestinal: Denies: abdominal pain, nausea, vomiting Genitourinary: Denies: urgency, dysuria, frequency Musculoskeletal: Reports: back pain, other (Left rib pain) Integumentary: Denies: rash Neurological: Reports: weakness. 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 - Social History Smoking Status: Former smoker Smokeless Tobacco Status: No Alcohol use: Reports: none Drug use: Reports: none Physical Exam - General Limitations: no limitations General appearance: alert, in no apparent distress - Head Head exam: normocephalic - Eye Eye exam: Present: EOMI - ENT ENT exam: mucous membranes moist - Neck Neck exam: Present: trachea midline - Chest Chest inspection: Present: symmetric chest wall rise, tenderness (Left rib margin), other (No crepitus, bruising, appreciated) - Respiratory Respiratory exam: Present: normal lung sounds bilaterally, other (Patient requiring oxygen as oxygen saturation is 80% on room air) - Cardiovascular Cardiovascular exam: Present: regular rate, normal rhythm, normal heart sounds - Abdominal Exam Abdominal exam: Present: soft, Non-Tender. Absent: distention, guarding, rebound, rigidity - Extremities Exam Extremities exam: Present: normal capillary refill, other (Left elbow has minor skin tearing, full range of motion, neurovascular intact in the upper and lower extremity.) - Back Exam Back exam: Present: full ROM. Absent: vertebral tenderness - Neurological Exam Neurological exam: Present: alert, oriented X3, CN II-XII intact, other (No pr onator drift, GCS 15, patient has 4 out of 5 strength in the left upper extremity) - Psychiatric Psychiatric exam: Present: normal affect, normal mood - Skin Skin exam: Present: warm, dry, intact, normal color. Absent: rash Course Vital Signs Temperature 97.7 F 08/31/18 17:04 Pulse Rate 59 08/31/18 17:04 Respiratory Rate 18 08/31/18 17:04 Blood Pressure 172/60 08/31/18 17:04 O2 Sat by Pulse Oximetry 87 08/31/18 17:04 Temperature 97.7 F 08/31/18 17:04 Pulse Rate 59 08/31/18 21:13 Respiratory Rate 20 08/31/18 21:13 Blood Pressure 161/103 08/31/18 21:13 O2 Sat by Pulse Oximetry 95 08/31/18 21:13 Oxygen Delivery Oxygen Delivery Nasal Cannula Medical Decision Making - [facility] Narrative Medical decision making narrative: 82-year-old female presents emergency department with concern for dizziness, left upper extremity weakness, falls, with new carpet oxygen. Patient not appear to be in any distress at this time. Airway, breathing, circulation inta ct. Patient has only left upper extremity weakness as 4 out of 5. Otherwise, she is neurologically intact. Patient out of the window for TPA as last known well was at 9:30 AM. On exposure, patient has mild skin tearing of the left elbow that will not require suturing. Patient up-to-date on her tetanus. Obtain CT scan of the head and neck as well as CTA of the head to look for evidence of hemorrhage, blockage, and aneurysm. Patient also hypoxic and requiring 3 L of oxygen at 90% on room air. Reports that she had episodes of tachycardia on EMS. Not tachycardic here. We will obtain a CTA of the chest, abdomen and pelvis. Plan was for admission of the patient chest x-ray reveals stable cardiomegaly per radiology, head CTA does not reveal any intracranial abnormality or high arterial grade stenosis. There are chronic small vessel ischemic changes. 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 Patient's CTA chest reveals cardiomegaly with bilateral pleural effusions and interlobular septal thickening. Patient has bilateral 2+ pitting edema. She is hypoxic and requiring oxygen. Patient's BNP is 583 which is marginally elevated from her previous. We have given patient 40 mg of Lasix IV. Patient's evidence of nitrites and leukocyte esterase in her urinalysis. We will treat this with 1 g of Rocephin here in the emergency department. Patient admitted to Dr. Lawson who agreed to accept the patient for admission. I discussed the plans and all lab results as well as imaging results with the family. Patient stable not in any acute distress at that time. Chest X-Ray 08/31/18 17:01 IMPRESSION: No acute process. Stable cardiomegaly D/ / Steven Elaine MD / Steven Elaine MD Interpreting Provider: Steven Elaine MD Head CTA 08/31/18 17:01 IMPRESSION: 1. No acute intracranial abnormality. 2. No intracranial large artery high-grade stenosis, occlusion or aneurysm. 3. Chronic small vessel ischemic disease. 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 D/ / Cayden Horton / Cayedn Horton Interpreting Provider: Cyaden Horton Chest CTA 08/31/18 17:07 IMPRESSION: No evidence of aortic dissection. Cardiomegaly with small bilateral pleural effusions as well as interlobular septal thickening most compatible with interstitial edema. Radiodense material throughout the common duct with intrahepatic biliary ductal dilation, likely representing stones. Mass is considered less likely but not excluded. At least moderate distension of the urinary bladder. Correlation for urinary bladder outlet obstruction is recommended. Distal colonic diverticulosis without radiographic evidence of active inflammation. D/ / Tika Jensen Cha, MD / Tika Jensen Cha, MD Interpreting Provider: Tika Jensen Cha, MD Abdomen/Pelvis CTA 08/31/18 17:08 IMPRESSION: No evidence of aortic dissection. Cardiomegaly with small bilateral pleural effusions as well as interlobular septal thickening most compatible with interstitial edema. Radiodense material throughout the common duct with intrahepatic biliary ductal dilation, likely representing stones. Mass is considered less likely but not excluded. At least moderate distension of the urinary bladder. Correlation for urinary bladder outlet obstruction is recommended. Distal colonic diverticulosis without radiographic evidence of active inflammation. D/ / Tika Jensen Cha, MD / Tika Jensen Cha, MD Interpreting Provider: Tika Jensen Cha, MD Elbow X-Ray 08/31/18 17:35 IMPRESSION: No acute osseous abnormality. No foreign body identified D/ / Steven Elaine MD / Steven Elaine MD Interpreting Provider: Steven Elaine MD - Lab Data Result diagrams: 08/31/18 17:01 08/31/18 17:01 Lab Results 08/31/18 08/31/18 08/31/18 Range/Units 17:01 17:01 17:01 WBC 16.4 H (4.3-11.1) K/mcL RBC 4.61 (3.82-4.97) M/mcL Hgb 13.8 (11.5-15.4) g/dL Hct 41.6 (35.3-44.9) % MCV 90.2 (83.0-100.0) fL MCH 29.9 (28.0-33.3) pg MCHC 33.2 (31.6-35.5) g/dL RDW 14.4 (11.5-14.5) % Plt Count 260 (140-400) K/mcL MPV 10.1 (9.4-12.4) fL PT 12.2 H (9.4-12.1) Seconds INR 1.1 APTT 29.3 (26.0-36.0) Seconds Sodium 138 (136-145) mEq/L Potassium 3.4 L (3.5-5.1) mEq/L Chloride 100 (98-107) mEq/L Carbon Dioxide 25 (23-29) mEq/L BUN 18 (8-23) mg/dL Creatinine 0.81 (0.60-1.20) mg/dL Est GFR ( Amer) > 60 (> 60) Est GFR (Non-Af Amer) > 60 (> 60) BUN/Creatinine Ratio 22 (6-26) Glucose 180 H (70-105) mg/dL Calculated Osmolality 292 (280-300) Lactic Acid (0.5-2.2) mmol/L Calcium 10.0 (8.6-10.3) mg/dL Total Bilirubin 1.2 H (0.3-1.0) mg/dL Direct Bilirubin 0.2 (0.0-0.2) mg/dL Indirect Bilirubin 1.0 (0.0-1.2) mg/dL AST 26 (13-39) Units/L ALT 24 (7-52) Units/L Alkaline Phosphatase 120 H (34-104) Units/L Troponin I < 0.03 (< 0.04) ng/mL B-Natriuretic Peptide (Less than 100) pg/mL Serum Total Protein 7.2 (6.4-8.9) g/dL Albumin 4.5 (3.5-5.7) g/dL Globulin 2.7 (2.4-3.5) g/dL Albumin/Globulin Ratio 1.7 (1.1-2.2) Lipase 7 L (11-82) Units/L Urine Color (Yellow) Urine Clarity (Clear) Urine pH (5.0-8.0) pH Units Ur Specific [place] (1.010-1.025) Urine Protein (Neg-Trace) mg/dL Urine Glucose (UA) (Normal) mg/dL Urine Ketones (Negative) mg/dL Urine Blood (Negative) Urine Nitrite (Negative) Urine Bilirubin (Negative) Urine Urobilinogen (Normal) mg/dL Ur Leukocyte Esterase (Negative) Urine Microscopic RBC (0-3) per hpf Urine Microscopic WBC (0-3) per hpf Ur Squamous Epith Cells (None-Few) per lpf Urine Bacteria (None-Few) per hpf Hyaline Casts (None-Few) per lpf Ur Culture Indicated? (NO) Specimen Rejected 08/31/18 08/31/18 08/31/18 Range/Units 18:07 18:17 18:24 WBC (4.3-11.1) K/mcL RBC (3.82-4.97) M/mcL Hgb (11.5-15.4) g/dL Hct (35.3-44.9) % MCV (83.0-100.0) fL MCH (28.0-33.3) pg MCHC (31.6-35.5) g/dL RDW (11.5-14.5) % Plt Count (140-400) K/mcL MPV (9.4-12.4) fL PT (9.4-12.1) Seconds INR APTT (26.0-36.0) Seconds Sodium (136-145) mEq/L Potassium (3.5-5.1) mEq/L Chloride (98-107) mEq/L Carbon Dioxide (23-29) mEq/L BUN (8-23) mg/dL Creatinine (0.60-1.20) mg/dL Est GFR ( Amer) (> 60) Est GFR (Non-Af Amer) (> 60) BUN/Creatinine Ratio (6-26) Glucose (70-105) mg/dL Calculated Osmolality (280-300) Lactic Acid 1.7 (0.5-2.2) mmol/L Calcium (8.6-10.3) mg/dL Total Bilirubin (0.3-1.0) mg/dL Direct Bilirubin (0.0-0.2) mg/dL Indirect Bilirubin (0.0-1.2) mg/dL AST (13-39) Units/L ALT (7-52) Units/L Alkaline Phosphatase (34-104) Units/L Troponin I (< 0.04) ng/mL B-Natriuretic Peptide 583 H (Less than 100) pg/mL Serum Total Protein (6.4-8.9) g/dL Albumin (3.5-5.7) g/dL Globulin (2.4-3.5) g/dL Albumin/Globulin Ratio (1.1-2.2) Lipase (11-82) Units/L Urine Color (Yellow) Urine Clarity (Clear) Urine pH (5.0-8.0) pH Units Ur Specific [place] (1.010-1.025) Urine Protein (Neg-Trace) mg/dL Urine Glucose (UA) (Normal) mg/dL Urine Ketones (Negative) mg/dL Urine Blood (Negative) Urine Nitrite (Negative) Urine Bilirubin (Negative) Urine Urobilinogen (Normal) mg/dL Ur Leukocyte Esterase (Negative) Urine Microscopic RBC (0-3) per hpf Urine Microscopic WBC (0-3) per hpf Ur Squamous Epith Cells (None-Few) per lpf Urine Bacteria (None-Few) per hpf Hyaline Casts (None-Few) per lpf Ur Culture Indicated? (NO) Specimen Rejected Volume 08/31/18 Range/Units 20:58 WBC (4.3-11.1) K/mcL RBC (3.82-4.97) M/mcL Hgb (11.5-15.4) g/dL Hct (35.3-44.9) % MCV (83.0-100.0) fL MCH (28.0-33.3) pg MCHC (31.6-35.5) g/dL RDW (11.5-14.5) % Plt Count (140-400) K/mcL MPV (9.4-12.4) fL PT (9.4-12.1) Seconds INR APTT (26.0-36.0) Seconds Sodium (136-145) mEq/L Potassium (3.5-5.1) mEq/L Chloride (98-107) mEq/L Carbon Dioxide (23-29) mEq/L BUN (8-23) mg/dL Creatinine (0.60-1.20) mg/dL Est GFR ( Amer) (> 60) Est GFR (Non-Af Amer) (> 60) BUN/Creatinine Ratio (6-26) Glucose (70-105) mg/dL Calculated Osmolality (280-300) Lactic Acid (0.5-2.2) mmol/L Calcium (8.6-10.3) mg/dL Total Bilirubin (0.3-1.0) mg/dL Direct Bilirubin (0.0-0.2) mg/dL Indirect Bilirubin (0.0-1.2) mg/dL AST (13-39) Units/L ALT (7-52) Units/L Alkaline Phosphatase (34-104) Units/L Troponin I (< 0.04) ng/mL B-Natriuretic Peptide (Less than 100) pg/mL Serum Total Protein (6.4-8.9) g/dL Albumin (3.5-5.7) g/dL Globulin (2.4-3.5) g/dL Albumin/Globulin Ratio (1.1-2.2) Lipase (11-82) Units/L Urine Color Yellow (Yellow) Urine Clarity Cloudy A (Clear) Urine pH 6.0 (5.0-8.0) pH Units Ur Specific [place] 1.012 (1.010-1.025) Urine Protein Negative (Neg-Trace) mg/dL Urine Glucose (UA) Normal (Normal) mg/dL Urine Ketones Negative (Negative) mg/dL Urine Blood Negative (Negative) Urine Nitrite Positive A (Negative) Urine Bilirubin Negative (Negative) Urine Urobilinogen Normal (Normal) mg/dL Ur Leukocyte Esterase Small H (Negative) Urine Microscopic RBC 0-3 (0-3) per hpf Urine Microscopic WBC 5-15 H (0-3) per hpf Ur Squamous Epith Cells Many H (None-Few) per lpf Urine Bacteria Many H (None-Few) per hpf Hyaline Casts None Seen (None-Few) per lpf Ur Culture Indicated? NO. A (NO) Specimen Rejected - EKG Data EKG #1 EKG attestation: Yes I reviewed and interpreted this EKG. EKG results narrative: 19:13 Heart rate 60 bpm, QRS duration 100 ms, QT 346 ms, normal axis. Patient patient rhythm. No ischemic ST changes.
[2018-08-31 17:20] LABS: Hematocrit 41.6 % (35.3-44.9); Hemoglobin 13.8 g/dL (11.5-15.4); Mean Corpuscular HGB Conc 33.2 g/dL (31.6-35.5); Mean Corpuscular Hemoglobin 29.9 pg (28.0-33.3); Mean Corpuscular Volume 90.2 fL (83.0-100.0); Mean Platelet Volume 10.1 fL (9.4-12.4); Platelet Count 260 K/mcL (140-400); Red Blood Count 4.61 M/mcL (3.82-4.97); Red Cell Distribution Width 14.4 % (11.5-14.5)
[2018-08-31 17:28] LABS: INR 1.1; Prothrombin Time 12.2 Seconds (9.4-12.1)
[2018-08-31 17:31] LABS: Activated Partial Thrombo Time 29.3 Seconds (26.0-36.0)
[2018-08-31 17:39] LABS: Troponin I < 0.03 ng/mL (< 0.04)
[2018-08-31 17:42] LABS: BUN/Creatinine Ratio 22 (6-26); Blood Urea Nitrogen 18 mg/dL (8-23); Carbon Dioxide 25 mEq/L (23-29); Chloride 100 mEq/L (98-107); Glucose 180 mg/dL (70-105); Osmolality,Calculated 292 (280-300); Potassium 3.4 mEq/L (3.5-5.1); Sodium 138 mEq/L (136-145); eGFR For Non-African Americans > 60 (> 60)
--- NOTE | 2018-08-31 17:52 | Emergency Department Note ---
Disposition Clinical Impression: Fall Qualifiers: Encounter type: initial encounter Qualified Code(s): W19.XXXA - Unspecified fall, initial encounter Disposition: Admitted As Inpatient Condition: Good Forms: ED Satisfaction Letter General Adult HPI - General Chief complaint: ED Fall Stated complaint: fall Time Seen by Provider: 08/31/18 16:48 Source: patient, family, EMS Limitations: no limitations - History of Present Illness Pain Scale: 0 - Related Data Home Medications Medication Instructions Recorded Confirmed Aspirin 325 mg PO DAILY 03/24/16 10/01/17 Calcium Carbonate [Calcium] 600 mg PO BID 03/24/16 10/01/17 Diltiazem CD (24hr) [Cardizem CD] 240 mg PO DAILY 03/24/16 10/01/17 Furosemide [Lasix] 40 - 80 mg PO DAILY 03/24/16 10/01/17 Metoprolol XL (24 HR) Succ [Toprol 100 mg PO DAILY 03/24/16 10/01/17 Xl] [place]-3/Dha/Epa/Fish Oil [Fish Oil 1,000 mg PO DAILY 03/24/16 10/01/17 Dr 500 mg Softgel] Omeprazole [PriLOSEC] 40 mg PO DAILY 03/24/16 10/01/17 Potassium Chloride [K-Tab ER] 10 meq PO DAILY 03/24/16 10/01/17 Atorvastatin [Lipitor] 40 mg PO Q48H 05/09/16 10/01/17 Iron Polysaccharide Complex 150 mg PO BID 05/09/16 10/01/17 [Ferrex 150] Nitroglycerin [Nitrostat] 0.4 mg SL Q5M PRN 05/09/16 10/01/17 Sucralfate [Carafate] 1 gm PO QID 05/09/16 10/01/17 Latanoprost [Xalatan] 1 drop BOTH EYES HS 10/01/17 10/01/17 Timolol Maleate 0.5% 1 drop BOTH EYES BID 10/01/17 10/01/17 Previous Rx's Medication Instructions Recorded Cefdinir [Omnicef] 300 mg PO BID 3 Days #6 capsule 10/06/17 GuaiFENesin ER [Mucinex] 600 mg PO BID PRN #10 tbbp.12hr 10/06/17 Ipratropium/Albuterol Neb [Duoneb] 3 ml IH [id number] PRN #60 inhsol 10/06/17 predniSONE [PredniSONE] 20 mg PO DAILY #10 tablet 10/06/17 Allergies Allergy/AdvReac Type Severity Reaction Status Date / Time No Known Allergies Allergy Verified 05/09/16 09:57 Past Medical History - Past Medical History Medical history: Reports: atrial fibrillation, coronary artery disease, hyperlipidemia, hypertension, TIA, other Surgical history: Reports: other Psychiatric history: Reports: 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 - Social History Smoking Status: Former smoker Smokeless Tobacco Status: No Alcohol use: Reports: none Drug use: Reports: none Physical Exam - General Limitations: no limitations General appearance: alert, in no apparent distress Course Vital Signs Temperature 97.7 F 08/31/18 17:04 Pulse Rate 59 08/31/18 17:04 Respiratory Rate 18 08/31/18 17:04 Blood Pressure 172/60 08/31/18 17:04 O2 Sat by Pulse Oximetry 87 08/31/18 17:04 Temperature 97.7 F 08/31/18 17:04 Pulse Rate 59 08/31/18 17:04 Respiratory Rate 18 08/31/18 17:04 Blood Pressure 172/60 08/31/18 17:04 O2 Sat by Pulse Oximetry 87 08/31/18 17:04 Oxygen Delivery Oxygen Delivery Nasal Cannula Medical Decision Making - Lab Data Result diagrams: 08/31/18 17:01 08/31/18 17:01 Lab Results 08/31/18 08/31/18 08/31/18 Range/Units 17:01 17:01 17:01 WBC 16.4 H (4.3-11.1) K/mcL RBC 4.61 (3.82-4.97) M/mcL Hgb 13.8 (11.5-15.4) g/dL Hct 41.6 (35.3-44.9) % MCV 90.2 (83.0-100.0) fL MCH 29.9 (28.0-33.3) pg MCHC 33.2 (31.6-35.5) g/dL RDW 14.4 (11.5-14.5) % Plt Count 260 (140-400) K/mcL MPV 10.1 (9.4-12.4) fL PT 12.2 H (9.4-12.1) Seconds INR 1.1 APTT 29.3 (26.0-36.0) Seconds Sodium 138 (136-145) mEq/L Potassium 3.4 L (3.5-5.1) mEq/L Chloride 100 (98-107) mEq/L Carbon Dioxide 25 (23-29) mEq/L BUN 18 (8-23) mg/dL Creatinine 0.81 (0.60-1.20) mg/dL Est GFR ( Amer) > 60 (> 60) Est GFR (Non-Af Amer) > 60 (> 60) BUN/Creatinine Ratio 22 (6-26) Glucose 180 H (70-105) mg/dL Calculated Osmolality 292 (280-300) Calcium 10.0 (8.6-10.3) mg/dL Troponin I < 0.03 (< 0.04) ng/mL Attestation Statement - Attestation Attestation: I examined this patient and my medical decision-making was reviewed with the Resident Physician. I agree with the documented findings, disposition and treatment plan as described except to the extent set forth below. 82 year old pollo presents to the ED with complaints of fall after having a near syncopal episode and has a history of CVA x2 which have been evlauted and followup at [facility]. Patient has mild left upper side weakness LKW being [id number] this morning. We will continue with stroke workup and focused trauma eval as well as hypoxia workup and then admit to [facility]
[2018-08-31] MEDS ORDERED: Furosemide 40 MG in 0.9 % Sodium Chloride 50 ML IVPB ONE (19:18)
[2018-08-31 21:08] LABS: Bilirubin,Urine Negative (Negative); Blood,Urine Negative (Negative); Clarity,Urine Cloudy (Clear); Color,Urine Yellow (Yellow); Glucose,Urine (UA) Normal (Normal); Ketones,Urine Negative (Negative); Leukocyte Esterase,Urine Small (Negative); Nitrite,Urine Positive (Negative); Protein,Urine Negative (Neg-Trace); Specific Gravity,Urine 1.012 (1.010-1.025); Urobilinogen,Urine Normal (Normal)
[2018-08-31 21:10] LABS: Bacteria,Urine Many per hpf (None-Few); Hyaline Casts,Urine None Seen per lpf (None-Few); RBC,Urine 0-3 per hpf (0-3); Squamous Epithelial Cell,Urine Many per lpf (None-Few)
[2018-08-31 21:25] LABS: Alanine Aminotransferase 24 Units/L (7-52); Albumin 4.5 g/dL (3.5-5.7); Albumin/Globulin Ratio 1.7 (1.1-2.2); Alkaline Phosphatase 120 Units/L (34-104); Aspartate Amino Transferase 26 Units/L (13-39); Bilirubin,Direct 0.2 mg/dL (0.0-0.2); Bilirubin,Total 1.2 mg/dL (0.3-1.0); Globulin 2.7 g/dL (2.4-3.5); Lipase 7 Units/L (11-82); Total Protein 7.2 g/dL (6.4-8.9)
[2018-08-31] MEDS ORDERED: cefTRIAXone 1,000 MG in Water for inj. (sterile) 20 ML 10 ML IVP ONE (21:26)
--- NOTE | 2018-08-31 21:57 | Internal Med History&Physical ---
Addendum entered and electronically signed by Dieudonne Ponce MD 09/04/18 18:56: Patient was seen and examined on 08/31/2018 Original Note: <Adina Urena - Last Filed: 09/01/18 00:10> Date of Encounter: 09/01/18 Time of Encounter: 22:53 Internal Medicine - H&P: HPI Chief complaint: Fall, Left-sided Weakness Admitted From: Home Plans for Post Hospital Care: Home History of present illness: Ms. Mooney is a 82 year old female with PMHx significant for CAD with pacemaker, paroxysmal AFib, CVA, HTN, HLD who presents to the ED after falling on her left side this morning. Additionally reports left sided weakness. Fall occurred this morning, and last know well was approximately 9:30am. Per pt, she was walking down the [place] and felt lightheaded, weak and fell. Denies head trauma or loss of consciousness, but fall was unwitnessed. Denies tongue biting, hx of seizures, urinary incontinence. Denied chest pain, palpitations, arm or neck pain, sudden headache. returned home to find her approximately 3 hrs later, and she stated that she was too weak and could not stand. Pt has hx of CVA in the past with slight residual left-sided weakness. Pt denies fevers/chills, headache, vision changes, cough, chest pain, palpitations, abdominal pain, nausea, vomiting, diarrhea, dysuria, fatigue, malaise. Pt was taken to ED via EMS found to have decreased O2 sats and placed on 3L O2 via NC. In ED, extensive workup was completed: Initial Vitals: T = 97.7, HR = 59, RR = 18, BP = 172/60, O2 sat = 87% on 4L O2 CT Head w/o Contrast: No acute intracranial abnormality; Mild chronic small vessel ischemic disease within periventricular white matter with associated mild atrophy EKG: Atrial Paced Rhythm; HR = 60; Normal intervals; No acute ST changes; No significant change from previous EKG CXR: No acute process; Stable Cardiomegaly Head CTA: No acute intracranial abnormality; no intracranial large artery high- grade stenosis, occlusion, or aneurysm; Chronic small vessel ischemic disease. Old right posterior frontal and parietal region infarct Chest CTA: No evidence of aortic dissection; Cardiomegaly with small b/l pleural effusions and interlobular septal thickening most compatible with interstitial edema ABD/Pelvis CTA: Radiodense material throughout the common duct with intrahepatic biliary ductal dilation, likely representing stones. Mass considered less likely but not excluded; Moderate distension of urinary bladder. Correlation for urinary bladder outlet obstruction recommended; Distal colonic diverticulosis without radiographic evidence of active inflammation Left Elbow XR: No acute osseous abnormality; No foreign body identified Labs: CBC: Elevated WBC = 16.4, otherwise within normal limits BMP: K = 3.4, otherwise within normal limits LFTs: Total Bili = 1.2; ALP = 120; Lipase = 7 BNP = 583 Lactic Acid = 1.7, Pending Blood Cx x 2 Trop = negative UA = Cloudy, Positive Nitrites, Small Leuk Est, Many Urine Bacteria; Pending Urine Cx Pt was given 40mg Lasix IV and 1g Rocephin while in the ED. Pt will be admitted to hospitalist service for further workup of Dyspnea, Leukocytosis, asymptomatic bacteriuria. Past Med Surg Social Fam HX - Past Medical History Source: patient, old records reviewed, obtained from family Medical history: atrial fibrillation, coronary artery disease, hyperlipidemia, hypertension, TIA, other Additional medical history: ICD. PVD Psychiatric history: no psych history - Past Surgical History Surgical History: other Additional surgical history: Pacemaker - Social History Smoking Status: Former smoker Smokeless Tobacco Status: No Alcohol use: none Drug use: none Internal Medicine - H&P: Meds Calcium Carbonate [Calcium] 600 mg PO BID 03/24/16 [History] Diltiazem CD (24hr) [Cardizem CD] 240 mg PO DAILY 03/24/16 [History] Furosemide [Lasix] 40 - 80 mg PO DAILY 03/24/16 [History] Metoprolol XL (24 HR) Succ [Toprol Xl] 100 mg PO DAILY 03/24/16 [History] Omeprazole [PriLOSEC] 40 mg PO DAILY 03/24/16 [History] Potassium Chloride [K-Tab ER] 10 meq PO BID 03/24/16 [History] Atorvastatin [Lipitor] 40 mg PO Q48H 05/09/16 [History] Iron Polysaccharide Complex [Ferrex 150] 150 mg PO BID 05/09/16 [History] Nitroglycerin [Nitrostat] 0.4 mg SL Q5M PRN 05/09/16 [History] Sucralfate [Carafate] 1 gm PO QID 05/09/16 [History] Latanoprost [Xalatan] 1 drop BOTH EYES HS 10/01/17 [History] Timolol Maleate 0.5% 1 drop BOTH EYES BID 10/01/17 [History] Clopidogrel [Plavix] 75 mg PO DAILY 08/31/18 [History] Doxepin HCl 10 mg PO HS 08/31/18 [History] [place]-3/Dha/Epa/Fish Oil [Fish Oil 1,000 mg Softgel] 1 tab PO DAILY 08/31/18 [History] Allergy/AdvReac Type Severity Reaction Status Date / Time No Known Allergies Allergy Verified 05/09/16 09:57 All Systems PM: A 10-system review of systems was performed and is negative for pertinent findings except as documented above in the HPI. - Constitutional Constitutional: falls, weakness, no chills, no fatigue, no fever(s), no malaise - EENT Eyes: no blurry vision, no change in vision Nose, mouth and throat: no dry mouth, no facial pain, no nasal congestion, no nasal discharge, no neck pain, no post-nasal drip, no sore throat - Cardiovascular Cardiovascular ROS IM: lightheadedness, no chest pain, no diaphoresis, no dyspnea, no edema, no palpitations, no syncope - Respiratory Respiratory: cough, no dyspnea, no hemoptysis, no dyspnea on exertion - Gastrointestinal Gastrointestinal: no abdominal pain, no constipation, no diarrhea, no heartburn, no nausea, no vomiting - Genitourinary Genitourinary: urinary frequency, no dysuria, no urinary hesitancy, no urinary incontinence, no urinary urgency - Musculoskeletal Musculoskeletal ROS IM: no back pain, no myalgias, no neck pain, no numbness, no tingling - Integumentary Integumentary IM: no rash - Neurological Neurological ROS: no confusion, no dizziness, no headache(s) - Constitutional Vitals: Temp Pulse Resp BP Pulse Ox 97.7 F 59 20 161/103 95 08/31/18 17:04 08/31/18 21:13 08/31/18 21:13 08/31/18 21:13 08/31/18 21:13 General appearance: Present: cooperative, A&O X 3, pleasant, no acute distress, answers questions appropriately Exam: GEN: AOx3, NAD, resting comfortably in bed; Accompanied by at bedside; resting comfortably currently on 3L O2 via NC HEENT: Atraumatic, normocephalic; EOMI, PERRLA; miotic pupils; mucous membranes moist; sclera anicteric; pink conjunctiva CARDIO: RRR, no murmurs, rubs, gallops RESP: CTAB, no wheezes, rales, rhonchi ABD: Soft, non-tender, non-distended; bowel sounds present; no rebound or guarding NEURO: CN 2-12 grossly intact; 5/5 strength RUE, RLE; 4/5 strength LUE and LLE; cerebellar function intact; light touch sensation intact EXT: no lower extremity edema b/l; abrasion at posterior aspect of left elbow; normal radial pulses b/l Internal Med - H&P Results - Labs CBC & Chem 7: 08/31/18 17:01 08/31/18 17:01 Labs: Short CBC 08/31/18 Range/Units 17:01 WBC 16.4 H (4.3-11.1) K/mcL Hgb 13.8 (11.5-15.4) g/dL Hct 41.6 (35.3-44.9) % Plt Count 260 (140-400) K/mcL BMP 08/31/18 17:01 Sodium 138 Potassium 3.4 L Chloride 100 Carbon Dioxide 25 BUN 18 Creatinine 0.81 Glucose 180 H Calcium 10.0 Cardiac Enzymes 08/31/18 Range/Units 17:01 Troponin I < 0.03 (< 0.04) ng/mL Liver Function 08/31/18 Range/Units 17:01 Total Bilirubin 1.2 H (0.3-1.0) mg/dL Direct Bilirubin 0.2 (0.0-0.2) mg/dL AST 26 (13-39) Units/L ALT 24 (7-52) Units/L Alkaline Phosphatase 120 H (34-104) Units/L Albumin 4.5 (3.5-5.7) g/dL Urine 08/31/18 Range/Units 20:58 Urine Color Yellow (Yellow) Urine Clarity Cloudy A (Clear) Urine pH 6.0 (5.0-8.0) pH Units Ur Specific [place] 1.012 (1.010-1.025) Urine Protein Negative (Neg-Trace) mg/dL Urine Glucose (UA) Normal (Normal) mg/dL - Impressions ITS Impressions Chest X-Ray 08/31/18 17:01 IMPRESSION: No acute process. Stable cardiomegaly D/ / Steven Elaine MD / Steven Elaine MD Interpreting Provider: Steven Elaine MD Head CTA 08/31/18 17:01 IMPRESSION: 1. No acute intracranial abnormality. 2. No intracranial large artery high-grade stenosis, occlusion or aneurysm. 3. Chronic small vessel ischemic disease. 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 D/ / Cayden Sessions / Cayden Sessions Interpreting Provider: Cayden Sessions Chest CTA 08/31/18 17:07 IMPRESSION: No evidence of aortic dissection. Cardiomegaly with small bilateral pleural effusions as well as interlobular septal thickening most compatible with interstitial edema. Radiodense material throughout the common duct with intrahepatic biliary ductal dilation, likely representing stones. Mass is considered less likely but not excluded. At least moderate distension of the urinary bladder. Correlation for urinary bladder outlet obstruction is recommended. Distal colonic diverticulosis without radiographic evidence of active inflammation. D/ / Tika Jensen Cha, MD / Tika Jensen Cha, MD Interpreting Provider: Tika Jensen Cha, MD Abdomen/Pelvis CTA 08/31/18 17:08 IMPRESSION: No evidence of aortic dissection. Cardiomegaly with small bilateral pleural effusions as well as interlobular septal thickening most compatible with interstitial edema. Radiodense material throughout the common duct with intrahepatic biliary ductal dilation, likely representing stones. Mass is considered less likely but not excluded. At least moderate distension of the urinary bladder. Correlation for urinary bladder outlet obstruction is recommended. Distal colonic diverticulosis without radiographic evidence of active inflammation. D/ / Tika Jensen Cha, MD / Tika Jensen Cha, MD Interpreting Provider: Tika Jensen Cha, MD Elbow X-Ray 08/31/18 17:35 IMPRESSION: No acute osseous abnormality. No foreign body identified D/ / Steven Elaine MD / Steven Elaine MD Interpreting Provider: Steven Elaine MD - Assessment and plan (1) Dyspnea Current Visit: Yes Status: Acute Assessment and plan: Ms. Mooney is a 82 year old female with PMHx significant for CAD with pacemaker, paroxysmal AFib, CVA, HTN, HLD who presents to the ED after falling on her left side this morning. Associated with lightheadedness, dizziness Required 4L O2 via NC in the ED; normally does not use O2 at home Most recent Echo 03/26/16: LVEF 55-60%. Normal left ventricular size and systolic function. Indeterminate diastolic function. Dilated RV with normal function. Moderate aortic regurgitation. Aortic valve sclerosis. Moderate, eccentric directed MR with calcified doming of the AMVL. Severe tricuspid regurgitation. Mild pulmonic regurgitation. Estimated RVSP was 77 mmHg. Severe pulmonary hypertension. The IVC is not dilated. A linear echodensity consistent with a pacer lead was seen in the right atrium. Chest CTA: No evidence of aortic dissection; Cardiomegaly with small b/l pleural effusions and interlobular septal thickening most compatible with inters titial edema BNP = 583 Given 40mg IV Lasix in the ED PLAN: Will give 1 more dose 40mg IV Lasix in the AM; Cont home dose of Lasix thereafter Cont O2 as needed; Wean as tolerated Repeat Echo Strict Is & Os Daily weights Qualifiers: Dyspnea type: unspecified Qualified Code(s): R06.00 - Dyspnea, unspecified (2) Near syncope Current Visit: Yes Status: Acute Assessment and plan: Near syncopal episode this AM; Associated with lightheadedness, dizziness; Fall and left-sided weakness Does not report syncope, does not report head trauma Denies Hx seizures, tongue biting, urinary incontinence; However, fall was unwitnessed Hx CVA in the past; Hx left carotid endarterectomy CT Head w/o Contrast: No acute intracranial abnormality; Mild chronic small vessel ischemic disease within periventricular white matter with associated mild atrophy EKG: Atrial Paced Rhythm; HR = 60; Normal intervals; No acute ST changes; No significant change from previous EKG Head CTA: No acute intracranial abnormality; no intracranial large artery high- grade stenosis, occlusion, or aneurysm; Chronic small vessel ischemic disease. Old right posterior frontal and parietal region infarct PLAN: Monitor vitals Monitor O2 Sats Echo in the AM (3) UTI (urinary tract infection) Current Visit: Yes Status: Acute Assessment and plan: Pt notes urinary frequency - attributes due to Lasix use; Denies dysuria, urgenc y UA = Cloudy, Positive Nitrites, Small Leuk Est, Many Urine Bacteria; Pending Urine Cx Leukocytosis possibly secondary to UTI; pt remains afebrile S/P 1 dose Ceftriaxone in the ED PLAN: Follow up Urine Culture Consider antibiotics or wait for culture results CBC in the AM Qualifiers: Urinary tract infection type: site unspecified Hematuria presence: with hematuria Qualified Code(s): N39.0 - Urinary tract infection, site not specified; R31.9 - Hematuria, unspecified; R31.9 - Hematuria, unspecified (4) Common bile duct dilatation Current Visit: Yes Status: Acute Assessment and plan: Pt denies abdominal pain, nausea, vomiting, diarrhea; However, with imaging, identified intrahepatic biliary duct dilation ABD/Pelvis CTA: Radiodense material throughout the common duct with intrahepatic biliary ductal dilation, likely representing stones. Mass considered less likely but not excluded; Moderate distension of urinary bladder. Correlation for urinary bladder outlet obstruction recommended; Distal colonic diverticulosis without radiographic evidence of active inflammation LFTs: Total Bili = 1.2; ALP = 120; Lipase = 7 MRCP contraindicated due to Pacemaker PLAN: Consider GI consult Consider RUQ ultrasound (5) Hypokalemia Current Visit: Yes Status: Acute Assessment and plan: K = 3.4 On daily Potassium Chloride PLAN: Replete as needed (6) Paroxysmal atrial fibrillation Current Visit: No Status: Chronic Assessment and plan: EKG: Atrial Paced Rhythm; HR = 60; Normal intervals; No acute ST changes; No significant change from previous EKG Rate controlled with metoprolol; s/p pacemaker PLAN: Cont metoprolol (7) HLD (hyperlipidemia) Current Visit: No Status: Chronic Assessment and plan: Cont statin q48h Qualifiers: Hyperlipidemia type: unspecified Qualified Code(s): E78.5 - Hyperlipidemia, unspecified (8) HTN (hypertension) Current Visit: No Status: Chronic Assessment and plan: Cont Diltiazem, Lasix, Metoprolol Monitor BPs Qualifiers: Hypertension type: essential hypertension Qualified Code(s): I10 - Essential (primary) hypertension (9) CAD (coronary artery disease) Current Visit: No Status: Chronic Assessment and plan: Hx CAD with Pacemaker; s/p carotid endarterectomy On Plavix, diltiazem, metoprolol, lipitor, nitroglycern PRN Monitor BPs Repeat Echo in the AM Qualifiers: Coronary Disease-Associated Artery/Lesion type: [place] artery [place] vs. transplanted heart: [place] heart Associated angina: without angina Qualified Code(s): I25.10 - Atherosclerotic heart disease of [place] coronary artery without angina pectoris (10) DVT prophylaxis Current Visit: No Status: Acute Assessment and plan: Heparin SQ BID - Time Spent With Patient Total time spent is greater than 50% in coordination of care (as documented) at patient's floor/unit and/or counseling patient: less than 15 minutes <Dieudonne Ponce - Last Filed: 09/01/18 07:23> Date of Encounter: 08/31/18 Internal Medicine - H&P: HPI History of present illness: Ms. Mooney is a 82 year old female All Systems PM: A 10-system review of systems was performed and is negative for pertinent findings except as documented above in the HPI. - Constitutional Vitals: Temp Pulse Resp BP Pulse Ox 97.8 F 59 17 131/61 92 09/01/18 06:34 09/01/18 06:34 09/01/18 06:34 09/01/18 06:34 09/01/18 06:34 Internal Med - H&P Results - Labs CBC & Chem 7: 09/01/18 05:58 09/01/18 04:29 Labs: Short CBC 08/31/18 09/01/18 Range/Units 17:01 05:58 WBC 16.4 H 11.5 H (4.3-11.1) K/mcL Hgb 13.8 11.5 D (11.5-15.4) g/dL Hct 41.6 35.3 (35.3-44.9) % Plt Count 260 223 (140-400) K/mcL Neutrophils # 9.1 H (1.6-8.9) K/mcL BMP 08/31/18 09/01/18 17:01 04:29 Sodium 138 139 Potassium 3.4 L 2.7 L Chloride 100 102 Carbon Dioxide 25 28 BUN 18 16 Creatinine 0.81 0.82 Glucose 180 H 224 H Calcium 10.0 8.9 Cardiac Enzymes 08/31/18 Range/Units 17:01 Troponin I < 0.03 (< 0.04) ng/mL Liver Function 08/31/18 Range/Units 17:01 Total Bilirubin 1.2 H (0.3-1.0) mg/dL Direct Bilirubin 0.2 (0.0-0.2) mg/dL AST 26 (13-39) Units/L ALT 24 (7-52) Units/L Alkaline Phosphatase 120 H (34-104) Units/L Albumin 4.5 (3.5-5.7) g/dL Urine 08/31/18 Range/Units 20:58 Urine Color Yellow (Yellow) Urine Clarity Cloudy A (Clear) Urine pH 6.0 (5.0-8.0) pH Units Ur Specific [place] 1.012 (1.010-1.025) Urine Protein Negative (Neg-Trace) mg/dL Urine Glucose (UA) Normal (Normal) mg/dL - Impressions ITS Impressions Chest X-Ray 08/31/18 17:01 IMPRESSION: No acute process. Stable cardiomegaly D/ / Steven Elaine MD / Steven Elaine MD Interpreting Provider: Steven Elaine MD Head CTA 08/31/18 17:01 IMPRESSION: 1. No acute intracranial abnormality. 2. No intracranial large artery high-grade stenosis, occlusion or aneurysm. 3. Chronic small vessel ischemic disease. 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 D/ / Cayden Sessions / Cayden Sessions Interpreting Provider: Caydne Sessions Chest CTA 08/31/18 17:07 IMPRESSION: No evidence of aortic dissection. Cardiomegaly with small bilateral pleural effusions as well as interlobular septal thickening most compatible with interstitial edema. Radiodense material throughout the common duct with intrahepatic biliary ductal dilation, likely representing stones. Mass is considered less likely but not excluded. At least moderate distension of the urinary bladder. Correlation for urinary bladder outlet obstruction is recommended. Distal colonic diverticulosis without radiographic evidence of active inflammation. D/ / Tika Jensen Cha, MD / Tika Jensen Cha, MD Interpreting Provider: Tika Jensen Cha, MD Abdomen/Pelvis CTA 08/31/18 17:08 IMPRESSION: No evidence of aortic dissection. Cardiomegaly with small bilateral pleural effusions as well as interlobular septal thickening most compatible with interstitial edema. Radiodense material throughout the common duct with intrahepatic biliary ductal dilation, likely representing stones. Mass is considered less likely but not excluded. At least moderate distension of the urinary bladder. Correlation for urinary bladder outlet obstruction is recommended. Distal colonic diverticulosis without radiographic evidence of active inflammation. D/ / Tika Jensen Cha, MD / Tika Jensen Cha, MD Interpreting Provider: Tika Jensen Cha, MD Elbow X-Ray 08/31/18 17:35 IMPRESSION: No acute osseous abnormality. No foreign body identified D/ / Steven Elaine MD / Steven Elaine MD Interpreting Provider: Steven Elaine MD - Time Spent With Patient Total time spent is greater than 50% in coordination of care (as documented) at patient's floor/unit and/or counseling patient: - Attending Attestation I performed a history and physical examination the patient and discussed his management with the resident. I reviewed the resident's note and agree with the documented findings and plan of care.
[2018-08-31] MEDS ORDERED: Naloxone 0.4 MG/ML INJ IVP PRN (22:06)
[2018-08-31] MEDS ORDERED: Nitroglycerin 0.4 MG TAB.SUBL SL PRN (23:59)
[2018-09-01] MEDS: *HR* Heparin 5,000 UNIT/ML VIAL SQ SCH ×2 (05:00→18:53)
[2018-09-01 05:20] LABS: BUN/Creatinine Ratio 20 (6-26); Blood Urea Nitrogen 16 mg/dL (8-23); Calcium 8.9 mg/dL (8.6-10.3); Carbon Dioxide 28 mEq/L (23-29); Chloride 102 mEq/L (98-107); Glucose 224 mg/dL (70-105); Osmolality,Calculated 296 (280-300); Potassium 2.7 mEq/L (3.5-5.1); Sodium 139 mEq/L (136-145); eGFR For Non-African Americans > 60 (> 60)
[2018-09-01 06:35] LABS: Immature Granulocytes % 0.7 % (0-4); Mean Platelet Volume 10.6 fL (9.4-12.4); Segmented Neutrophils % 78.7 %
[2018-09-01 06:37] LABS: Basophils # 0.1 K/mcL (0.0-0.2); Basophils % 0.4 %; Eosinophils # 0.1 K/mcL (0.0-0.6); Eosinophils % 0.5 %; Hematocrit 35.3 % (35.3-44.9); Hemoglobin 11.5 g/dL (11.5-15.4); Lymphocytes # 1.5 K/mcL (0.6-4.6); Lymphocytes % 12.7 %; Mean Corpuscular HGB Conc 32.6 g/dL (31.6-35.5); Mean Corpuscular Hemoglobin 29.7 pg (28.0-33.3); Mean Corpuscular Volume 91.2 fL (83.0-100.0); Monocytes # 0.8 K/mcL (0.0-1.3); Neutrophils # 9.1 K/mcL (1.6-8.9); Platelet Count 223 K/mcL (140-400); Red Blood Count 3.87 M/mcL (3.82-4.97); Red Cell Distribution Width 14.4 % (11.5-14.5)
[2018-09-01] MEDS ORDERED: (Fish Oil 1,000 Mg Softgel) PO SCH (09:00)
[2018-09-01] MEDS ORDERED: Furosemide 40 MG/4 ML VIAL IVP ONE (09:00)
[2018-09-01] MEDS: Sucralfate 1 GM TABLET PO SCH ×4 (09:34→20:33)
[2018-09-01] MEDS: Diltiazem CD (24hr) 240 MG CAPSULE PO SCH (09:34)
[2018-09-01] MEDS: Iron Polysaccharide Complex 150 MG CAPSULE PO SCH ×2 (09:34→20:33)
[2018-09-01] MEDS: Metoprolol XL (24 HR) Succ 50 MG TAB.ER.24H PO SCH (09:35)
--- NOTE | 2018-09-01 14:52 | Internal Med Progress Note ---
Hospitalist Progress Note - Encounter Date of Encounter: 09/01/18 Time of Encounter: 14:46 - Subjective Interval History: Pt's at bedside states pt has had some trouble walking since she had pre-syncopal episode on this admission. Pt denies chest pain or SOB. She denies fever, chills, N/V, or abdominal pain. She denies trouble speaking swallowing or visual changes. - Exam Vitals: Temp Pulse Resp BP Pulse Ox 97.5 F L 59 16 98/69 92 09/01/18 12:20 09/01/18 12:20 09/01/18 12:20 09/01/18 12:20 09/01/18 12:20 Exam: Exam: GEN: AOx3, NAD, resting comfortably in bed; Accompanied by at bedside; resting comfortably currently on 3L O2 via NC HEENT: Atraumatic, normocephalic; EOMI, PERRLA; miotic pupils; mucous membranes moist; sclera anicteric; pink conjunctiva CARDIO: RRR, no murmurs, rubs, gallops RESP: CTAB, no wheezes, rales, rhonchi ABD: Soft, non-tender, non-distended; bowel sounds present; no rebound or guarding. SKIN: no buises, bumps, or rash. NEURO: CN 2-12 grossly intact; 5/5 strength RUE, RLE; 4/5 strength LUE and LLE; cerebellar function intact; light touch sensation intact EXT: no lower extremity edema b/l; abrasion at posterior aspect of left elbow; normal radial pulses b/l - Assessment and Plan (1) Dyspnea Current Visit: No Status: Acute Assessment and Plan: Likely multi-factorial due to volume overload vs pulmonary. 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 Denies prior hx of COPD. Prior pulmonary HTN, moderate aortid regurgitation, severe tricuspid regurg. Required 4L O2 via NC in the ED; normally does not use O2 at home. Now down to 2L NC. Will continue to monitor. Echo 09/01/2018 EV/EV echocardiogram Impressions: LVEF 65-70%. Normal LV chamber size, wall thickness and function. Moderate left ventricular diastolic dysfunction. Normal right ventricular structure and function. Moderate biatrial enlargement Mild-moderate aortic regurgitation. Severe tricuspid regurgitation. Severe pulmonary hypertension. A device lead was visualized in the right atrium and right ventricle. Echo 03/26/16: LVEF 55-60%. Normal left ventricular size and systolic function. Indeterminate diastolic function. Dilated RV with normal function. Moderate aortic regurgitation. Aortic valve sclerosis. Moderate, eccentric directed MR with calcified doming of the AMVL. Severe tricuspid regurgitation. Mild pulmonic regurgitation. Estimated RVSP was 77 mmHg. Severe pulmonary hypertension. The IVC is not dilated. A linear echodensity consistent with a pacer lead was seen in the right atrium. Chest CTA: No evidence of aortic dissection; Cardiomegaly with small b/l pleural effusions and interlobular septal thickening most compatible with interstitial edema BNP = 583 Given 40mg IV Lasix in the ED and another dose on the floor. Will resume home dose Lasix 40 mg PO QD. Pt has orders from PCP to take extra Lasix 40 mg oral QD. Will order Duoneb scheduled and recommend out pt PFT at discharge. Will continue to monitor. (2) Common bile duct dilatation Current Visit: No Status: Acute Assessment and Plan: Pt denies abdominal pain, nausea, vomiting, diarrhea; However, with imaging, identified intrahepatic biliary duct dilation ABD/Pelvis CTA: Radiodense material throughout the common duct with intrahepatic biliary ductal dilation, likely representing stones. Mass considered less likely but not excluded; Moderate distension of urinary bladder. Correlation for urinary bladder outlet obstruction recommended; Distal colonic diverticulosis without radiographic evidence of active inflammation LFTs: Total Bili = 1.2; ALP = 120; Lipase = 7 PLAN: Pt asymptomatic at this time. Will check RUQ abdominal US due to bump in Alk phos Will hold off on GI consult for now. Will recheck LFT today. (3) Hypokalemia Current Visit: No Status: Acute Assessment and Plan: K 2.7 today. Will replace with K 40 mEq IV x one now. (4) Near syncope Current Visit: No Status: Acute Assessment and Plan: Ms. Mooney is a 82 year old female with PMHx significant for CAD with pacemaker, paroxysmal AFib, CVA, HTN, HLD who presents to the ED after falling on her left side this morning. MRI brain orderd to rule out CVA as pt has hx of CVA. Pt's had PM card. Per pt's PM card, PM is MRI compatible. PT/OT recommending rehab inpt. Family wants pt at [facility] in [facility] and plan for possible DC thur. (5) UTI (urinary tract infection) Current Visit: No Status: Acute Assessment and Plan: Urine culture so far showing Gram negative bert. Awaiting final results. Will continue on Rocephine. WBC trending down. (6) CAD (coronary artery disease) Current Visit: No Status: Chronic Assessment and Plan: ASA, Plavix, and Atorvastatin (7) HLD (hyperlipidemia) Current Visit: No Status: Chronic Assessment and Plan: Atorvastatin (8) HTN (hypertension) Current Visit: No Status: Chronic Assessment and Plan: Cardizem and Metoprolol (9) Paroxysmal atrial fibrillation Current Visit: No Status: Chronic Assessment and Plan: ASA, Cardizem and Metoprolol DVT Prophylaxis: Heparin - Summary of Assessment and Plan Summary of Assessment and Plan: History of present illness: Dr. Urena Ms. Mooney is a 82 year old female with PMHx significant for CAD with pacemaker, paroxysmal AFib, CVA, HTN, HLD who presents to the ED after falling on her left side this morning. Additionally reports left sided weakness. Fall occurred this morning, and last know well was approximately 9:30am. Per pt, she was walking down the [place] and felt lightheaded, weak and fell. Denies head trauma or loss of consciousness, but fall was unwitnessed. Denies tongue biting, hx of seizures, urinary incontinence. Denied chest pain, palpitations, arm or neck pain, sudden headache. returned home to find her approximately 3 hrs later, and she stated that she was too weak and could not stand. Pt has hx of CVA in the past with slight residual left-sided weakness. Pt denies fevers/chills, headache, vision changes, cough, chest pain, palpitations, abdominal pain, nausea, vomiting, diarrhea, dysuria, fatigue, malaise. - Time Spent with Patient Total time spent is greater than 50% in coordination of care (as documented) at patient's floor/unit and/or counseling patient: less than 15 minutes Plan of Care Discussed with: patient Internal Medicine: Result - Labs CBC & Chem 7: 09/01/18 05:58 09/01/18 04:29 Labs: Short CBC 08/31/18 09/01/18 Range/Units 17:01 05:58 WBC 16.4 H 11.5 H (4.3-11.1) K/mcL Hgb 13.8 11.5 D (11.5-15.4) g/dL Hct 41.6 35.3 (35.3-44.9) % Plt Count 260 223 (140-400) K/mcL Neutrophils # 9.1 H (1.6-8.9) K/mcL BMP 08/31/18 09/01/18 17:01 04:29 Sodium 138 139 Potassium 3.4 L 2.7 L Chloride 100 102 Carbon Dioxide 25 28 BUN 18 16 Creatinine 0.81 0.82 Glucose 180 H 224 H Calcium 10.0 8.9 Cardiac Enzymes 08/31/18 Range/Units 17:01 Troponin I < 0.03 (< 0.04) ng/mL Liver Function 08/31/18 Range/Units 17:01 Total Bilirubin 1.2 H (0.3-1.0) mg/dL Direct Bilirubin 0.2 (0.0-0.2) mg/dL AST 26 (13-39) Units/L ALT 24 (7-52) Units/L Alkaline Phosphatase 120 H (34-104) Units/L Albumin 4.5 (3.5-5.7) g/dL Urine 08/31/18 Range/Units 20:58 Urine Color Yellow (Yellow) Urine Clarity Cloudy A (Clear) Urine pH 6.0 (5.0-8.0) pH Units Ur Specific [place]cluse 1.012 (1.010-1.025) Urine Protein Negative (Neg-Trace) mg/dL Urine Glucose (UA) Normal (Normal) mg/dL - ABG Interpretation ABG results: PT/INR, D-dimer PT 12.2 Seconds (9.4-12.1) H 08/31/18 17:01 - Impressions Impressions Chest X-Ray 08/31/18 17:01 IMPRESSION: No acute process. Stable cardiomegaly D/ / Steven Elaine MD / Steven Elaine MD Interpreting Provider: Steven Elaine MD Head CTA 08/31/18 17:01 IMPRESSION: 1. No acute intracranial abnormality. 2. No intracranial large artery high-grade stenosis, occlusion or aneurysm. 3. Chronic small vessel ischemic disease. 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 D/ / Cayden Sessions / Cayden Sessions Interpreting Provider: Cayden Sessions Chest CTA 08/31/18 17:07 IMPRESSION: No evidence of aortic dissection. Cardiomegaly with small bilateral pleural effusions as well as interlobular septal thickening most compatible with interstitial edema. Radiodense material throughout the common duct with intrahepatic biliary ductal dilation, likely representing stones. Mass is considered less likely but not excluded. At least moderate distension of the urinary bladder. Correlation for urinary bladder outlet obstruction is recommended. Distal colonic diverticulosis without radiographic evidence of active inflammation. D/ / Tika Jensen Cha, MD / Tika Jensen Cha, MD Interpreting Provider: Tika Jensen Cha, MD Abdomen/Pelvis CTA 08/31/18 17:08 IMPRESSION: No evidence of aortic dissection. Cardiomegaly with small bilateral pleural effusions as well as interlobular septal thickening most compatible with interstitial edema. Radiodense material throughout the common duct with intrahepatic biliary ductal dilation, likely representing stones. Mass is considered less likely but not excluded. At least moderate distension of the urinary bladder. Correlation for urinary bladder outlet obstruction is recommended. Distal colonic diverticulosis without radiographic evidence of active inflammation. D/ / Tika Jensen Cha, MD / Tika Jensen Cha, MD Interpreting Provider: Tika Jensen Cha, MD Elbow X-Ray 08/31/18 17:35 IMPRESSION: No acute osseous abnormality. No foreign body identified D/ / Steven Elaine MD / Steven Elaine MD Interpreting Provider: Steven Elaine MD Echocardiogram 11/27/18 00:33 Impressions: LVEF 65-70%. Normal LV chamber size, wall thickness and function. Moderate left ventricular diastolic dysfunction. Normal right ventricular structure and function. Moderate biatrial enlargement Mild-moderate aortic regurgitation. Severe tricuspid regurgitation. Severe pulmonary hypertension. A device lead was visualized in the right atrium and right ventricle. Left Ventricular Wall Motion: Rest Echo Findings All wall segments showed normal motion. Findings: Study Quality * Technically adequate exam. ECG Findings * Normal sinus rhythm. Left Ventricle * LVEF 65-70%. * Normal LV chamber size, wall thickness and function. * Moderate left ventricular diastolic dysfunction. Right Ventricle * Normal right ventricular structure and function. Left Atrium * Moderately dilated left atrium. Right Atrium * Moderately dilated right atrium. Interatrial Septum * No evidence of PFO by color Doppler. Aortic Valve * Trileaflet aortic valve. * Moderately sclerotic aortic valve leaflets. * Mild-moderate aortic regurgitation. * No aortic stenosis. Mitral Valve * Normal mitral valve structure. * Mild mitral regurgitation. * No mitral stenosis. Tricuspid Valve * Normal tricuspid valve structure. * Severe tricuspid regurgitation. * Severe pulmonary hypertension. * Estimated RVSP is 89 mmHg. * Estimated RA pressure is 10 mmHg. Pulmonic Valve * Pulmonic valve is not well visualized. Aorta * Normally sized aortic root. Pericardium * The pericardium appears normal. IVC * The IVC is dilated. * > 50% respiratory change Device lead * A device lead was visualized in the right atrium and right ventricle. Consult Discharge Plan - Plan Referrals: David Linton DO [Primary Care Provider] - (1) Dyspnea Qualifiers: Dyspnea type: unspecified Qualified Code(s): R06.00 - Dyspnea, unspecified (5) UTI (urinary tract infection) Qualifiers: Urinary tract infection type: site unspecified Hematuria presence: with hematuria Qualified Code(s): N39.0 - Urinary tract infection, site not specified; R31.9 - Hematuria, unspecified; R31.9 - Hematuria, unspecified (6) CAD (coronary artery disease) Qualifiers: Coronary Disease-Associated Artery/Lesion type: [place] artery [place] vs. transplanted heart: [place] heart Associated angina: without angina Qualified Code(s): I25.10 - Atherosclerotic heart disease of [place] coronary artery without angina pectoris (7) HLD (hyperlipidemia) Qualifiers: Hyperlipidemia type: unspecified Qualified Code(s): E78.5 - Hyperlipidemia, unspecified (8) HTN (hypertension) Qualifiers: Hypertension type: essential hypertension Qualified Code(s): I10 - Essential (primary) hypertension
[2018-09-01] MEDS ORDERED: Potassium Chloride 40 MEQ, Lidocaine 1% 2 ML in D5% in Water 500 ML IVPB ONE (14:53)
[2018-09-01 16:53] LABS: Albumin 3.7 g/dL (3.5-5.7); Albumin/Globulin Ratio 1.4 (1.1-2.2); Bilirubin,Direct 0.1 mg/dL (0.0-0.2); Bilirubin,Indirect 0.5 mg/dL (0.0-1.2); Bilirubin,Total 0.6 mg/dL (0.3-1.0); Globulin 2.6 g/dL (2.4-3.5); Total Protein 6.3 g/dL (6.4-8.9)
[2018-09-01] MEDS: Ipratropium/Albuterol Neb 3 ML IH SCH ×2 (17:15→22:03)
[2018-09-01] MEDS: Latanoprost 2.5 ML BOTTLE BOTH EYES SCH (20:37)
[2018-09-01] MEDS ORDERED: (Doxepin Hcl [Doxepin Hcl] 10 MG) PO SCH (21:00)
[2018-09-02 03:38] LABS: Basophils # 0.1 K/mcL (0.0-0.2); Basophils % 0.7 %; Eosinophils # 0.3 K/mcL (0.0-0.6); Eosinophils % 3.4 %; Hematocrit 36.2 % (35.3-44.9); Hemoglobin 11.9 g/dL (11.5-15.4); Immature Granulocytes % 1.3 % (0-4); Lymphocytes # 1.5 K/mcL (0.6-4.6); Lymphocytes % 15.7 %; Mean Corpuscular HGB Conc 32.9 g/dL (31.6-35.5); Mean Corpuscular Hemoglobin 29.8 pg (28.0-33.3); Mean Corpuscular Volume 90.5 fL (83.0-100.0); Mean Platelet Volume 10.6 fL (9.4-12.4); Monocytes # 0.7 K/mcL (0.0-1.3); Monocytes % 7.8 %; Neutrophils # 6.8 K/mcL (1.6-8.9); Platelet Count 216 K/mcL (140-400); Red Cell Distribution Width 14.7 % (11.5-14.5); Segmented Neutrophils % 71.1 %
[2018-09-02] MEDS: Ipratropium/Albuterol Neb 3 ML IH SCH ×4 (03:50→22:46)
[2018-09-02 04:00] LABS: Alanine Aminotransferase 20 Units/L (7-52); Albumin 3.4 g/dL (3.5-5.7); Albumin/Globulin Ratio 1.4 (1.1-2.2); Alkaline Phosphatase 93 Units/L (34-104); Aspartate Amino Transferase 15 Units/L (13-39); BUN/Creatinine Ratio 21 (6-26); Bilirubin,Total 0.7 mg/dL (0.3-1.0); Blood Urea Nitrogen 15 mg/dL (8-23); Carbon Dioxide 29 mEq/L (23-29); Chloride 102 mEq/L (98-107); Globulin 2.4 g/dL (2.4-3.5); Glucose 158 mg/dL (70-105); Osmolality,Calculated 288 (280-300); Potassium 3.8 mEq/L (3.5-5.1); Sodium 137 mEq/L (136-145); Total Protein 5.8 g/dL (6.4-8.9); eGFR For Non-African Americans > 60 (> 60)
[2018-09-02] MEDS: *HR* Heparin 5,000 UNIT/ML VIAL SQ SCH ×2 (06:32→17:32)
[2018-09-02] MEDS: Sucralfate 1 GM TABLET PO SCH ×4 (07:48→20:50)
[2018-09-02] MEDS: Diltiazem CD (24hr) 240 MG CAPSULE PO SCH (07:48)
[2018-09-02] MEDS: Metoprolol XL (24 HR) Succ 50 MG TAB.ER.24H PO SCH (07:49)
[2018-09-02] MEDS: Iron Polysaccharide Complex 150 MG CAPSULE PO SCH ×2 (07:49→20:50)
[2018-09-02] MEDS ORDERED: Furosemide 40 MG TABLET PO SCH (09:00)
[2018-09-02] MEDS ORDERED: MOM Conc 10 ML UD.LIQ PO ONE (09:41)
[2018-09-02] MEDS: Cefdinir 300 MG CAPSULE PO SCH ×2 (10:14→20:50)
[2018-09-02] MEDS: Fish Oil 1,000 Mg Softgel PO SCH (10:15)
[2018-09-02] MEDS ORDERED: ALPRAZolam 0.25 MG TABLET PO ONE (11:27)
--- NOTE | 2018-09-02 13:37 | Internal Med Progress Note ---
Hospitalist Progress Note - Encounter Date of Encounter: 09/02/18 Time of Encounter: 13:35 - Subjective Interval History: Pt's at bedside states pt will likely need something fokr anxiety for MRI. Pt denies chest pain or SOB. She denies fever, chills, N/V, or abdominal pain. She denies trouble speaking swallowing or visual changes. - Exam Vitals: Temp Pulse Resp BP Pulse Ox 97.5 F L 71 18 119/56 95 09/02/18 10:56 09/02/18 10:56 09/02/18 10:56 09/02/18 10:56 09/02/18 10:56 Exam: Exam: GEN: AOx3, NAD, resting comfortably in bed; Accompanied by at bedside; resting comfortably currently on 3L O2 via NC HEENT: Atraumatic, normocephalic; EOMI, PERRLA; miotic pupils; mucous membranes moist; sclera anicteric; pink conjunctiva CARDIO: RRR, no murmurs, rubs, gallops RESP: CTAB, no wheezes, rales, rhonchi ABD: Soft, non-tender, non-distended; bowel sounds present; no rebound or guarding. SKIN: no buises, bumps, or rash. NEURO: CN 2-12 grossly intact; 5/5 strength RUE, RLE; 4/5 strength LUE and LLE; cerebellar function intact; light touch sensation intact EXT: no lower extremity edema b/l; abrasion at posterior aspect of left elbow; normal radial pulses b/l - Assessment and Plan (1) Dyspnea Current Visit: No Status: Acute Assessment and Plan: Likely multi-factorial due to volume overload vs pulmonary. Pt is a former smoker that quite 25 years ago. Denies prior hx of COPD. Prior severe pulmonary HTN, moderate aortic regurgitation, and severe tricuspid regurg. Required 4L O2 via NC in the ED; normally does not use O2 at home. Back up from 2L 09/01/2018 to 4L NC 09/02/2018. Chest CTA: No evidence of aortic dissection; Cardiomegaly with small b/l pleural effusions and interlobular septal thickening most compatible with interstitial edema BNP = 583 Given 40mg IV Lasix in the ED and another dose on the floor. Will place on Lasix 20 mg IV BID as she is back up from 2L to 4L NC. Pt had orders from PCP to take extra Lasix 40 mg oral QD prn. Will order Duoneb scheduled and recommend out pt PFT at discharge. Will continue to monitor. Echo 09/01/2018 EV/EV echocardiogram Impressions: LVEF 65-70%. Normal LV chamber size, wall thickness and function. Moderate left ventricular diastolic dysfunction. Normal right ventricular structure and function. Moderate biatrial enlargement Mild-moderate aortic regurgitation. Severe tricuspid regurgitation. Severe pulmonary hypertension. A device lead was visualized in the right atrium and right ventricle. Echo 03/26/16: LVEF 55-60%. Normal left ventricular size and systolic function. Indeterminate diastolic function. Dilated RV with normal function. Moderate aortic regurgitation. Aortic valve sclerosis. Moderate, eccentric directed MR with calcified doming of the AMVL. Severe tricuspid regurgitation. Mild pulmonic regurgitation. Estimated RVSP was 77 mmHg. Severe pulmonary hypertension. The IVC is not dilated. A linear echodensity consistent with a pacer lead was seen in the right atrium. (2) Common bile duct dilatation Current Visit: No Status: Acute Assessment and Plan: Pt denies abdominal pain, nausea, vomiting, diarrhea; However, with imaging, identified intrahepatic biliary duct dilation ABD/Pelvis CTA: Radiodense material throughout the common duct with intrahepatic biliary ductal dilation, likely representing stones. Mass considered less likely but not excluded; Moderate distension of urinary bladder. Correlation for urinary bladder outlet obstruction recommended; Distal colonic diverticulosis without radiographic evidence of active inflammation LFTs: Total Bili = 1.2; ALP = 120; Lipase = 7 PLAN: Pt asymptomatic at this time. Denies ABd pain and no evidence of jaundice ordered RUQ abdominal US due to bump in Alk phos. RUQ abd US US/US abdomen limited IMPRESSION: Biliary ductal dilation. Findings on previous CT imaging concerning for choledocholithiasis. Alk phos trended down and bilirubin wnl. Recommend out pt follow up with GI. (3) Hypokalemia Current Visit: No Status: Acute Assessment and Plan: K 2.7 replaced with K 40 mEq IV x one now. K 3.8 (4) Near syncope Current Visit: No Status: Acute Assessment and Plan: Ms. Mooney is a 82 year old female with PMHx significant for CAD with pacemaker, paroxysmal AFib, CVA, HTN, HLD who presents to the ED after falling on her left side this morning. MRI brain orderd to rule out CVA as pt has hx of CVA. Pt's had PM card. Per pt's PM card, PM is MRI compatible. PT/OT recommending rehab inpt. Family wants pt at [facility] in [facility] and plan for possible DC thur. (5) UTI (urinary tract infection) Current Visit: No Status: Acute Assessment and Plan: Urine culture so far showing Gram negative bert. Awaiting final results of culture. Will continue on Rocephine. WBC down to wnl. (6) CAD (coronary artery disease) Current Visit: No Status: Chronic Assessment and Plan: ASA, Plavix, and Atorvastatin (7) HLD (hyperlipidemia) Current Visit: No Status: Chronic Assessment and Plan: Atorvastatin (8) HTN (hypertension) Current Visit: No Status: Chronic Assessment and Plan: Cardizem and Metoprolol (9) Paroxysmal atrial fibrillation Current Visit: No Status: Chronic Assessment and Plan: ASA, Cardizem and Metoprolol DVT Prophylaxis: Heparin - Summary of Assessment and Plan Summary of Assessment and Plan: History of present illness: Dr. Urena Ms. Mooney is a 82 year old female with PMHx significant for CAD with pacemaker, paroxysmal AFib, CVA, HTN, HLD who presents to the ED after falling on her left side this morning. Additionally reports left sided weakness. Fall occurred this morning, and last know well was approximately 9:30am. Per pt, she was walking [place] the [place] and felt lightheaded, weak and fell. Denies head trauma or loss of consciousness, but fall was unwitnessed. Denies tongue biting, hx of seizures, urinary incontinence. Denied chest pain, palpitations, arm or neck pain, sudden headache. returned home to find her approximately 3 hrs later, and she stated that she was too weak and could not stand. Pt has hx of CVA in the past with slight residual left-sided weakness. Pt denies fevers/chills, headache, vision changes, cough, chest pain, palpitations, abdominal pain, nausea, vomiting, diarrhea, dysuria, fatigue, malaise. - Time Spent with Patient Total time spent is greater than 50% in coordination of care (as documented) at patient's floor/unit and/or counseling patient: less than 15 minutes Plan of Care Discussed with: patient Internal Medicine: Result - Labs CBC & Chem 7: 09/02/18 02:52 09/02/18 02:52 Labs: Short CBC 09/02/18 Range/Units 02:52 WBC 9.5 (4.3-11.1) K/mcL Hgb 11.9 (11.5-15.4) g/dL Hct 36.2 (35.3-44.9) % Plt Count 216 (140-400) K/mcL Neutrophils # 6.8 (1.6-8.9) K/mcL BMP 09/02/18 02:52 Sodium 137 Potassium 3.8 D Chloride 102 Carbon Dioxide 29 BUN 15 Creatinine 0.73 Glucose 158 H Calcium 9.0 Liver Function 09/01/18 09/02/18 Range/Units 15:55 02:52 Total Bilirubin 0.6 0.7 (0.3-1.0) mg/dL Direct Bilirubin 0.1 (0.0-0.2) mg/dL AST 25 15 (13-39) Units/L ALT 24 20 (7-52) Units/L Alkaline Phosphatase 110 H 93 (34-104) Units/L Albumin 3.7 3.4 L (3.5-5.7) g/dL - ABG Interpretation ABG results: PT/INR, D-dimer PT 12.2 Seconds (9.4-12.1) H 08/31/18 17:01 - Impressions Impressions Echocardiogram 09/01/18 00:33 Impressions: LVEF 65-70%. Normal LV chamber size, wall thickness and function. Moderate left ventricular diastolic dysfunction. Normal right ventricular structure and function. Moderate biatrial enlargement Mild-moderate aortic regurgitation. Severe tricuspid regurgitation. Severe pulmonary hypertension. A device lead was visualized in the right atrium and right ventricle. Left Ventricular Wall Motion: Rest Echo Findings All wall segments showed normal motion. Findings: Study Quality * Technically adequate exam. ECG Findings * Normal sinus rhythm. Left Ventricle * LVEF 65-70%. * Normal LV chamber size, wall thickness and function. * Moderate left ventricular diastolic dysfunction. Right Ventricle * Normal right ventricular structure and function. Left Atrium * Moderately dilated left atrium. Right Atrium * Moderately dilated right atrium. Interatrial Septum * No evidence of PFO by color Doppler. Aortic Valve * Trileaflet aortic valve. * Moderately sclerotic aortic valve leaflets. * Mild-moderate aortic regurgitation. * No aortic stenosis. Mitral Valve * Normal mitral valve structure. * Mild mitral regurgitation. * No mitral stenosis. Tricuspid Valve * Normal tricuspid valve structure. * Severe tricuspid regurgitation. * Severe pulmonary hypertension. * Estimated RVSP is 89 mmHg. * Estimated RA pressure is 10 mmHg. Pulmonic Valve * Pulmonic valve is not well visualized. Aorta * Normally sized aortic root. Pericardium * The pericardium appears normal. IVC * The IVC is dilated. * > 50% respiratory change Device lead * A device lead was visualized in the right atrium and right ventricle. Abdomen Ultrasound 09/02/18 00:00 IMPRESSION: Biliary ductal dilation. Findings on previous CT imaging concerning for choledocholithiasis. D/ / Gigi Kern MD / Gigi Kern MD Interpreting Provider: Gigi Kern MD Consult Discharge Plan - Plan Referrals: David Linton DO [Primary Care Provider] - (1) Dyspnea Qualifiers: Dyspnea type: unspecified Qualified Code(s): R06.00 - Dyspnea, unspecified (5) UTI (urinary tract infection) Qualifiers: Urinary tract infection type: site unspecified Hematuria presence: with hematuria Qualified Code(s): N39.0 - Urinary tract infection, site not specified; R31.9 - Hematuria, unspecified; R31.9 - Hematuria, unspecified (6) CAD (coronary artery disease) Qualifiers: Coronary Disease-Associated Artery/Lesion type: [place] artery [place] vs. transplanted heart: [place] heart Associated angina: without angina Qualified Code(s): I25.10 - Atherosclerotic heart disease of [place] coronary artery w ithout angina pectoris (7) HLD (hyperlipidemia) Qualifiers: Hyperlipidemia type: unspecified Qualified Code(s): E78.5 - Hyperlipidemia, unspecified (8) HTN (hypertension) Qualifiers: Hypertension type: essential hypertension Qualified Code(s): I10 - Essential (primary) hypertension
--- NOTE | 2018-09-02 15:10 | Electrocardiograph Report ---
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
[2018-09-02] MEDS: Furosemide 20 MG/2 ML VIAL IVP SCH (17:32)
[2018-09-02] MEDS: Latanoprost 2.5 ML BOTTLE BOTH EYES SCH (20:51)
[2018-09-02] MEDS: Doxepin Hcl [Doxepin Hcl] 10 MG PO SCH (21:14)
[2018-09-03] MEDS: Ipratropium/Albuterol Neb 3 ML IH SCH ×4 (04:09→21:15)
[2018-09-03 05:44] LABS: Basophils # 0.1 K/mcL (0.0-0.2); Basophils % 0.8 %; Eosinophils # 0.3 K/mcL (0.0-0.6); Eosinophils % 3.8 %; Hematocrit 36.4 % (35.3-44.9); Hemoglobin 11.6 g/dL (11.5-15.4); Immature Granulocytes % 1.6 % (0-4); Lymphocytes # 1.6 K/mcL (0.6-4.6); Lymphocytes % 18.3 %; Mean Corpuscular HGB Conc 31.9 g/dL (31.6-35.5); Mean Corpuscular Hemoglobin 29.6 pg (28.0-33.3); Mean Corpuscular Volume 92.9 fL (83.0-100.0); Mean Platelet Volume 10.6 fL (9.4-12.4); Monocytes # 0.7 K/mcL (0.0-1.3); Monocytes % 7.8 %; Neutrophils # 6.1 K/mcL (1.6-8.9); Platelet Count 227 K/mcL (140-400); Red Blood Count 3.92 M/mcL (3.82-4.97); Red Cell Distribution Width 14.6 % (11.5-14.5); Segmented Neutrophils % 67.7 %
[2018-09-03 06:06] LABS: Alanine Aminotransferase 15 Units/L (7-52); Albumin 3.2 g/dL (3.5-5.7); Albumin/Globulin Ratio 1.4 (1.1-2.2); Alkaline Phosphatase 84 Units/L (34-104); Aspartate Amino Transferase 11 Units/L (13-39); BUN/Creatinine Ratio 19 (6-26); Bilirubin,Total 0.5 mg/dL (0.3-1.0); Blood Urea Nitrogen 13 mg/dL (8-23); Carbon Dioxide 28 mEq/L (23-29); Chloride 102 mEq/L (98-107); Globulin 2.3 g/dL (2.4-3.5); Glucose 145 mg/dL (70-105); Osmolality,Calculated 287 (280-300); Potassium 3.9 mEq/L (3.5-5.1); Sodium 137 mEq/L (136-145); Total Protein 5.5 g/dL (6.4-8.9); eGFR For Non-African Americans > 60 (> 60)
[2018-09-03] MEDS: *HR* Heparin 5,000 UNIT/ML VIAL SQ SCH ×2 (06:27→16:56)
[2018-09-03] MEDS: Iron Polysaccharide Complex 150 MG CAPSULE PO SCH ×2 (10:00→20:11)
[2018-09-03] MEDS: Furosemide 20 MG/2 ML VIAL IVP SCH ×2 (10:00→16:56)
[2018-09-03] MEDS: Diltiazem CD (24hr) 240 MG CAPSULE PO SCH (10:01)
[2018-09-03] MEDS: Cefdinir 300 MG CAPSULE PO SCH ×2 (10:01→20:11)
[2018-09-03] MEDS: Sucralfate 1 GM TABLET PO SCH ×4 (10:01→20:12)
[2018-09-03] MEDS: Metoprolol XL (24 HR) Succ 50 MG TAB.ER.24H PO SCH (10:01)
[2018-09-03] MEDS: Fish Oil 1,000 Mg Softgel PO SCH (10:02)
--- NOTE | 2018-09-03 14:25 | General Surgery Consult Note ---
<JayAngie Lauren - Last Filed: 09/03/18 14:58> Date of Encounter: 09/03/18 Time of Encounter: 13:00 Assessment and Plan (1) Common bile duct dilatation Current Visit: Yes Status: Acute Pt and are adamant that pt had her GB "removed in the 1949s while in [place];" although, findings of a GB are noted on imaging. There are no visible s urgical scars on the abdomen. When I revisited the question with the family, the became very angry and shouting at this BAND DIRECTOR, "that was from the . How do you expect me to remember that long ago. Don't you go questioning me. If I said it it happened. Don't question my memory." I enforced that this BAND DIRECTOR was simply trying to understanding the imaging and patient findings vs reported history so that we could better serve Ms. Mooney. Rafi again responded as previously detailed. She denies any abdominal symptoms whatsoever. Noted GI consult. Liver function unremarkable, Alk Phos normalized from 120 to 84, fractionated bilirubin unremarkable CBD dilation 11 mm per US. Thank you for the surgical consult; however general surgery role is limited without GI evaluation for ductal dilation. We will continue to follow with you. No acute surgical indication at present. History of Present Illness Consult date: 09/03/18 (Dr. Chepe Byrd) Reason for consult: other Requesting physician: Zena Mustafa History of present illness: Surgery has been consulted for recommendations regarding common bile duct dilation Ms. Mooney's past medical, surgical, social, and family histories are reviewed per the electronic medical record (with patient and her Rafi) a nd updated where indicated. She does affirm recent hisotry of CVA, a-fib history with pacemaker. presented on 08/31/2018 following an episode of dizziness and falling at home. She reports she was walking from one room to the other at home, began to feel dizzy, and fell over. She denies fever, chills, headache, chest pain, shortness of breath, abdominal pain, nausea, vomiting, diarrhea, reflux, hematemesis black, bloody, or tarry stool. She reports her "gall bladder was removed in the in [place] when I was having gall bladder problems." She has no other abdominal complaints whatsoever. Past Med Surg Social Fam HX - Past Medical History Medical history: atrial fibrillation, coronary artery disease, hyperlipidemia, hypertension, TIA, other Additional medical history: ICD. PVD Psychiatric history: no psych history - Past Surgical History Surgical History: other Additional surgical history: Pacemaker - Social History Smoking Status: Former smoker Smokeless Tobacco Status: No Alcohol use: none Drug use: none Medications and Allergies Calcium Carbonate [Calcium] 600 mg PO BID 03/24/16 [History] Diltiazem CD (24hr) [Cardizem CD] 240 mg PO DAILY 03/24/16 [History] Furosemide [Lasix] 40 - 80 mg PO DAILY 03/24/16 [History] Metoprolol XL (24 HR) Succ [Toprol Xl] 100 mg PO DAILY 03/24/16 [History] Omeprazole [PriLOSEC] 40 mg PO DAILY 03/24/16 [History] Potassium Chloride [K-Tab ER] 10 meq PO BID 03/24/16 [History] Atorvastatin [Lipitor] 40 mg PO Q48H 05/09/16 [History] Iron Polysaccharide Complex [Ferrex 150] 150 mg PO BID 05/09/16 [History] Nitroglycerin [Nitrostat] 0.4 mg SL Q5M PRN 05/09/16 [History] Sucralfate [Carafate] 1 gm PO QID 05/09/16 [History] Latanoprost [Xalatan] 1 drop BOTH EYES HS 10/01/17 [History] Timolol Maleate 0.5% 1 drop BOTH EYES BID 10/01/17 [History] Clopidogrel [Plavix] 75 mg PO DAILY 08/31/18 [History] Doxepin HCl 10 mg PO HS 08/31/18 [History] [place]-3/Dha/Epa/Fish Oil [Fish Oil 1,000 mg Softgel] 1 tab PO DAILY 08/31/18 [History] Allergy/AdvReac Type Severity Reaction Status Date / Time No Known Allergies Allergy Verified 05/09/16 09:57 Review of Systems All systems PM: reviewed and no additional remarkable complaints except as stated All systems PM: The remainder of the systems were reviewed and are negative General Surgery Exam Initial Vital Signs Temp Pulse Resp BP Pulse Ox 97.7 F 59 18 172/60 87 08/31/18 17:04 08/31/18 17:04 08/31/18 17:04 08/31/18 17:04 08/31/18 17:04 - General physical appearance no distress, no pain - Neck trachea midline - Respiratory normal expansion, normal respiratory effort, clear to auscultation - Cardiovascular Cardiovascular exam: Present: distant heart sounds - Abdomen Abdomen general surgery: Present: bowel sounds present, soft, non tender Hernia: Present: none - Integumentary Integumentary general surgery: Present: warm and dry, no abnormal pigmentation - Neurologic Present: normal sensation - Musculoskeletal Present: normal posture - Psychiatric Psychiatric general surgery: Present: A&Ox3, appropriate, oriented to person, oriented to place, oriented to time, speech is normal Exam Initial Vital Signs Temp Pulse Resp BP Pulse Ox 97.7 F 59 18 172/60 87 08/31/18 17:04 08/31/18 17:04 08/31/18 17:04 08/31/18 17:04 08/31/18 17:04 Results - Labs 09/03/18 05:01 09/03/18 05:01 Abnormal lab results RDW 14.6 % (11.5-14.5) H 09/03/18 05:01 PT 12.2 Seconds (9.4-12.1) H 08/31/18 17:01 Glucose 145 mg/dL (70-105) H 09/03/18 05:01 AST 11 Units/L (13-39) L 09/03/18 05:01 B-Natriuretic Peptide 583 pg/mL (Less than 100) H 08/31/18 18:07 Serum Total Protein 5.5 g/dL (6.4-8.9) L 09/03/18 05:01 Albumin 3.2 g/dL (3.5-5.7) L 09/03/18 05:01 Globulin 2.3 g/dL (2.4-3.5) L 09/03/18 05:01 Lipase 7 Units/L (11-82) L 08/31/18 17:01 Urine Clarity Cloudy (Clear) A 08/31/18 20:58 Urine Nitrite Positive (Negative) A 08/31/18 20:58 Ur Leukocyte Esterase Small (Negative) H 08/31/18 20:58 Urine Microscopic WBC 5-15 per hpf (0-3) H 08/31/18 20:58 Ur Squamous Epith Cells Many per lpf (None-Few) H 08/31/18 20:58 Urine Bacteria Many per hpf (None-Few) H 08/31/18 20:58 Ur Culture Indicated? NO. (NO) A 08/31/18 20:58 Diabetes panel 09/03/18 Range/Units 05:01 Sodium 137 (136-145) mEq/L Potassium 3.9 (3.5-5.1) mEq/L Chloride 102 (98-107) mEq/L Carbon Dioxide 28 (23-29) mEq/L BUN 13 (8-23) mg/dL Creatinine 0.68 (0.60-1.20) mg/dL Glucose 145 H (70-105) mg/dL Calcium 9.0 (8.6-10.3) mg/dL AST 11 L (13-39) Units/L ALT 15 (7-52) Units/L Alkaline Phosphatase 84 (34-104) Units/L Albumin 3.2 L (3.5-5.7) g/dL Calcium panel 09/03/18 Range/Units 05:01 Calcium 9.0 (8.6-10.3) mg/dL Albumin 3.2 L (3.5-5.7) g/dL Pituitary panel 09/03/18 Range/Units 05:01 Sodium 137 (136-145) mEq/L Potassium 3.9 (3.5-5.1) mEq/L Chloride 102 (98-107) mEq/L Carbon Dioxide 28 (23-29) mEq/L BUN 13 (8-23) mg/dL Creatinine 0.68 (0.60-1.20) mg/dL Glucose 145 H (70-105) mg/dL Calcium 9.0 (8.6-10.3) mg/dL Adrenal panel 09/03/18 Range/Units 05:01 Sodium 137 (136-145) mEq/L Potassium 3.9 (3.5-5.1) mEq/L Chloride 102 (98-107) mEq/L Carbon Dioxide 28 (23-29) mEq/L BUN 13 (8-23) mg/dL Creatinine 0.68 (0.60-1.20) mg/dL Glucose 145 H (70-105) mg/dL Calcium 9.0 (8.6-10.3) mg/dL Total Bilirubin 0.5 (0.3-1.0) mg/dL AST 11 L (13-39) Units/L ALT 15 (7-52) Units/L Alkaline Phosphatase 84 (34-104) Units/L Albumin 3.2 L (3.5-5.7) g/dL All other labs normal. - Imaging CT scan - abdomen: report reviewed CT scan - pelvis: report reviewed US - abdomen: report reviewed Consult Discharge Plan - Plan Referrals: David Linton DO [Primary Care Provider] - <Chepe Byrd - Last Filed: 09/03/18 19:59> Date of Encounter: 09/03/18 Assessment and Plan (1) Common bile duct dilatation Current Visit: Yes Status: Acute Review of Systems All systems PM: The remainder of the systems were reviewed and are negative General Surgery Exam Initial Vital Signs Temp Pulse Resp BP Pulse Ox 97.7 F 59 18 172/60 87 08/31/18 17:04 08/31/18 17:04 08/31/18 17:04 08/31/18 17:04 08/31/18 17:04 Exam Initial Vital Signs Temp Pulse Resp BP Pulse Ox 97.7 F 59 18 172/60 87 08/31/18 17:04 08/31/18 17:04 08/31/18 17:04 08/31/18 17:04 08/31/18 17:04 Results - Labs 09/03/18 05:01 09/03/18 05:01 Abnormal lab results RDW 14.6 % (11.5-14.5) H 09/03/18 05:01 PT 12.2 Seconds (9.4-12.1) H 08/31/18 17:01 Glucose 145 mg/dL (70-105) H 09/03/18 05:01 AST 11 Units/L (13-39) L 09/03/18 05:01 B-Natriuretic Peptide 583 pg/mL (Less than 100) H 08/31/18 18:07 Serum Total Protein 5.5 g/dL (6.4-8.9) L 09/03/18 05:01 Albumin 3.2 g/dL (3.5-5.7) L 09/03/18 05:01 Globulin 2.3 g/dL (2.4-3.5) L 09/03/18 05:01 Lipase 7 Units/L (11-82) L 08/31/18 17:01 Urine Clarity Cloudy (Clear) A 08/31/18 20:58 Urine Nitrite Positive (Negative) A 08/31/18 20:58 Ur Leukocyte Esterase Small (Negative) H 08/31/18 20:58 Urine Microscopic WBC 5-15 per hpf (0-3) H 08/31/18 20:58 Ur Squamous Epith Cells Many per lpf (None-Few) H 08/31/18 20:58 Urine Bacteria Many per hpf (None-Few) H 08/31/18 20:58 Ur Culture Indicated? NO. (NO) A 08/31/18 20:58 Diabetes panel 09/03/18 Range/Units 05:01 Sodium 137 (136-145) mEq/L Potassium 3.9 (3.5-5.1) mEq/L Chloride 102 (98-107) mEq/L Carbon Dioxide 28 (23-29) mEq/L BUN 13 (8-23) mg/dL Creatinine 0.68 (0.60-1.20) mg/dL Glucose 145 H (70-105) mg/dL Calcium 9.0 (8.6-10.3) mg/dL AST 11 L (13-39) Units/L ALT 15 (7-52) Units/L Alkaline Phosphatase 84 (34-104) Units/L Albumin 3.2 L (3.5-5.7) g/dL Calcium panel 09/03/18 Range/Units 05:01 Calcium 9.0 (8.6-10.3) mg/dL Albumin 3.2 L (3.5-5.7) g/dL Pituitary panel 09/03/18 Range/Units 05:01 Sodium 137 (136-145) mEq/L Potassium 3.9 (3.5-5.1) mEq/L Chloride 102 (98-107) mEq/L Carbon Dioxide 28 (23-29) mEq/L BUN 13 (8-23) mg/dL Creatinine 0.68 (0.60-1.20) mg/dL Glucose 145 H (70-105) mg/dL Calcium 9.0 (8.6-10.3) mg/dL Adrenal panel 09/03/18 Range/Units 05:01 Sodium 137 (136-145) mEq/L Potassium 3.9 (3.5-5.1) mEq/L Chloride 102 (98-107) mEq/L Carbon Dioxide 28 (23-29) mEq/L BUN 13 (8-23) mg/dL Creatinine 0.68 (0.60-1.20) mg/dL Glucose 145 H (70-105) mg/dL Calcium 9.0 (8.6-10.3) mg/dL Total Bilirubin 0.5 (0.3-1.0) mg/dL AST 11 L (13-39) Units/L ALT 15 (7-52) Units/L Alkaline Phosphatase 84 (34-104) Units/L Albumin 3.2 L (3.5-5.7) g/dL All other labs normal. - Attending Attestation patient seen and examined. I have reviewed all labs, imaging, and notes. I agree with the above assessment and plan and wish to add the following... 82F with what sounds like an incidental finding of biliary duct dilatation. She does not, nor has she reported abdominal pain, T bili within normal limits; abdomen soft, non tender; no jaundice/scleral icterus; recommend GI evaluation to elucidate etiology of ductal dilatation. No acute surgery.
--- NOTE | 2018-09-03 16:16 | Internal Med Progress Note ---
Date of Encounter: 09/03/18 Time of Encounter: 09:00 - Constitutional Vitals: Temp Pulse Resp BP Pulse Ox 97.5 F L 86 16 134/64 96 09/03/18 11:26 09/03/18 11:26 09/03/18 16:02 09/03/18 11:09/03/18 16:02 General appearance: Present: cooperative, A&O X 3, pleasant, no acute distress, answers questions appropriately Internal Medicine: Result - Labs CBC & Chem 7: 09/03/18 05:01 09/03/18 05:01 Labs: Short CBC 09/03/18 Range/Units 05:01 WBC 8.9 (4.3-11.1) K/mcL Hgb 11.6 (11.5-15.4) g/dL Hct 36.4 (35.3-44.9) % Plt Count 227 (140-400) K/mcL Neutrophils # 6.1 (1.6-8.9) K/mcL BMP 09/03/18 05:01 Sodium 137 Potassium 3.9 Chloride 102 Carbon Dioxide 28 BUN 13 Creatinine 0.68 Glucose 145 H Calcium 9.0 Liver Function 09/03/18 Range/Units 05:01 Total Bilirubin 0.5 (0.3-1.0) mg/dL AST 11 L (13-39) Units/L ALT 15 (7-52) Units/L Alkaline Phosphatase 84 (34-104) Units/L Albumin 3.2 L (3.5-5.7) g/dL - ABG Interpretation ABG results: PT/INR, D-dimer PT 12.2 Seconds (9.4-12.1) H 08/31/18 17:01 Consult Discharge Plan - Plan Referrals: David Linton DO [Primary Care Provider] -
--- NOTE | 2018-09-03 18:08 | Internal Med Progress Note ---
Hospitalist Progress Note - Encounter Date of Encounter: 09/03/18 Time of Encounter: 10:00 - Subjective Interval History: Patient seen and examined today in the presence of the nurse. She is feeling better though she is complaining of left-sided rib pain since she had the fall. She did not complain about this when she came in. The patient and her would like to have x-rays of the left ribs. Discussed with patient her imaging studies. Specifically her carotid ultrasound did not look any different and showed moderate atherosclerosis on the left side. The patient has abnormal imaging of the abdomen from the ultrasound and the CT which raises suspicion for choledocholithiasis though she is asymptomatic at this time. I general surgery consult has been requested. - Exam Vitals: Temp Pulse Resp BP Pulse Ox 97.5 F L 86 16 134/64 96 09/03/18 11:26 09/03/18 11:26 09/03/18 16:02 09/03/18 11:26 09/03/18 16:02 Exam: Exam: GEN: AOx3, NAD, resting comfortably in bed; Accompanied by at bedside; resting comfortably currently on 3L O2 via NC HEENT: Atraumatic, normocephalic; EOMI, PERRLA; miotic pupils; mucous membranes moist; sclera anicteric; pink conjunctiva CARDIO: RRR, no murmurs, rubs, gallops RESP: CTAB, no wheezes, rales, rhonchi ABD: Soft, non-tender, non-distended; bowel sounds present; no rebound or guarding. SKIN: no buises, bumps, or rash. NEURO: CN 2-12 grossly intact; 5/5 strength RUE, RLE; 4/5 strength LUE and L LE; cerebellar function intact; light touch sensation intact EXT: no lower extremity edema b/l; abrasion at posterior aspect of left elbow; normal radial pulses b/l - Assessment and Plan (1) Dyspnea Current Visit: No Status: Acute Assessment and Plan: Likely multi-factorial due to volume overload vs pulmonary. Pt is a former smoker that quite 25 years ago. Denies prior hx of COPD. Prior severe pulmonary HTN, moderate aortic regurgitation, and severe tricuspid regurg. Patient is currently needing 2-4 L of oxygen to keep sats of 96%. This could be a new baseline for her. She did be sent to the ECF on this oxygen setting. (2) Common bile duct dilatation Current Visit: No Status: Acute Assessment and Plan: Pt denies abdominal pain, nausea, vomiting, diarrhea; However, with imaging, identified intrahepatic biliary duct dilation Will obtain general surgery consult and if needed GI consult. (3) Hypokalemia Current Visit: No Status: Acute Assessment and Plan: K 2.7 replaced with K 40 mEq IV x one now. K 3.8 (4) Near syncope Current Visit: No Status: Acute Assessment and Plan: Ms. Mooney is a 82 year old female with PMHx significant for CAD with pacemaker, paroxysmal AFib, CVA, HTN, HLD who presents to the ED after falling on her left side this morning. MRI brain orderd to rule out CVA as pt has hx of CVA. Pt's had PM card. Per pt's PM card, PM is MRI compatible. PT/OT recommending rehab inpt. Family wants pt at [facility] in [facility] and plan for possible DC thur. (5) UTI (urinary tract infection) Current Visit: No Status: Acute Assessment and Plan: This is from Escherichia coli which is sensitive to ceftriaxone. (6) CAD (coronary artery disease) Current Visit: No Status: Chronic Assessment and Plan: ASA, Plavix, and Atorvastatin (7) HLD (hyperlipidemia) Current Visit: No Status: Chronic Assessment and Plan: Atorvastatin (8) HTN (hypertension) Current Visit: No Status: Chronic Assessment and Plan: Cardizem and Metoprolol (9) Paroxysmal atrial fibrillation Current Visit: No Status: Chronic Assessment and Plan: ASA, Cardizem and Metoprolol DVT Prophylaxis: Heparin - Summary of Assessment and Plan Summary of Assessment and Plan: History of present illness: Dr. Urena Ms. Mooney is a 82 year old female with PMHx significant for CAD with pacemaker, paroxysmal AFib, CVA, HTN, HLD who presents to the ED after falling on her left side this morning. Additionally reports left sided weakness. Fall occurred this morning, and last know well was approximately 9:30am. Per pt, she was walking down the [place] and felt lightheaded, weak and fell. Denies head trauma or loss of consciousness, but fall was unwitnessed. Denies tongue biting, hx of seizures, urinary incontinence. Denied chest pain, palpitations, arm or neck pain, sudden headache. returned home to find her approximately 3 hrs later, and she stated that she was too weak and could not stand. Pt has hx of CVA in the past with slight residual left-sided weakness. Pt denies fevers/chills, headache, vision changes, cough, chest pain, palpitations, abdominal pain, nausea, vomiting, diarrhea, dysuria, fatigue, malaise. - Time Spent with Patient Total time spent is greater than 50% in coordination of care (as documented) at patient's floor/unit and/or counseling patient: 25 - 35 minutes Plan of Care Discussed with: social work Internal Medicine: Result - Labs CBC & Chem 7: 09/03/18 05:01 09/03/18 05:01 Labs: Short CBC 09/03/18 Range/Units 05:01 WBC 8.9 (4.3-11.1) K/mcL Hgb 11.6 (11.5-15.4) g/dL Hct 36.4 (35.3-44.9) % Plt Count 227 (140-400) K/mcL Neutrophils # 6.1 (1.6-8.9) K/mcL BMP 09/03/18 05:01 Sodium 137 Potassium 3.9 Chloride 102 Carbon Dioxide 28 BUN 13 Creatinine 0.68 Glucose 145 H Calcium 9.0 Liver Function 09/03/18 Range/Units 05:01 Total Bilirubin 0.5 (0.3-1.0) mg/dL AST 11 L (13-39) Units/L ALT 15 (7-52) Units/L Alkaline Phosphatase 84 (34-104) Units/L Albumin 3.2 L (3.5-5.7) g/dL - ABG Interpretation ABG results: PT/INR, D-dimer PT 12.2 Seconds (9.4-12.1) H 08/31/18 17:01 Consult Discharge Plan - Plan Referrals: David Linton DO [Primary Care Provider] - (1) Dyspnea Qualifiers: Dyspnea type: other forms of dyspnea Qualified Code(s): R06.09 - Other forms of dyspnea
[2018-09-03] MEDS: Latanoprost 2.5 ML BOTTLE BOTH EYES SCH (20:10)
[2018-09-03] MEDS: Doxepin Hcl [Doxepin Hcl] 10 MG PO SCH (20:28)
[2018-09-04] MEDS: Ipratropium/Albuterol Neb 3 ML IH SCH ×4 (03:45→22:09)
[2018-09-04] MEDS: *HR* Heparin 5,000 UNIT/ML VIAL SQ SCH ×2 (06:05→18:42)
[2018-09-04] MEDS ORDERED: *HR* FentaNYL (PF) 100 MCG/2 ML VIAL ONE (07:56)
[2018-09-04] MEDS ORDERED: *HR* Midazolam HCl 2 MG/2 ML VIAL ONE (07:56)
[2018-09-04] MEDS ORDERED: Dexamethasone 4 MG/ML VIAL ONE (07:56)
[2018-09-04] MEDS ORDERED: Lidocaine -MPF 4% 5 ML AMPUL ONE (07:56)
[2018-09-04] MEDS ORDERED: *HR* Rocuronium Bromide 50 MG/5 ML VIAL ONE (07:56)
[2018-09-04] MEDS ORDERED: EPHEDrine 50 MG/ML VIAL ONE (07:56)
[2018-09-04] MEDS ORDERED: Lidocaine -MPF 2% 2 ML VIAL ONE (07:56)
[2018-09-04] MEDS ORDERED: *HR* Propofol 200 MG/20 ML VIAL IVP ONE (07:56)
[2018-09-04] MEDS ORDERED: Ondansetron 4 MG/2 ML VIAL ONE (07:56)
[2018-09-04] MEDS ORDERED: *HR* Succinylcholine 200 MG/10 ML VIAL IVP ONE (07:56)
--- NOTE | 2018-09-04 07:56 | Anesthesia Evaluation PreOp ---
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 Other Medical History: Denies Any Significant HX Anesthesia History: No Prior Anesthetic Complications, Past Anesthesia (L-CEA, laura, EGD, EUS, pacer) : No Alcohol Use: none Drug use: none Medications and Allergies Calcium Carbonate [Calcium] 600 mg PO BID 03/24/16 [History] Diltiazem CD (24hr) [Cardizem CD] 240 mg PO DAILY 03/24/16 [History] Furosemide [Lasix] 40 - 80 mg PO DAILY 03/24/16 [History] Metoprolol XL (24 HR) Succ [Toprol Xl] 100 mg PO DAILY 03/24/16 [History] Omeprazole [PriLOSEC] 40 mg PO DAILY 03/24/16 [History] Potassium Chloride [K-Tab ER] 10 meq PO BID 03/24/16 [History] Atorvastatin [Lipitor] 40 mg PO Q48H 05/09/16 [History] Iron Polysaccharide Complex [Ferrex 150] 150 mg PO BID 05/09/16 [History] Nitroglycerin [Nitrostat] 0.4 mg SL Q5M PRN 05/09/16 [History] Sucralfate [Carafate] 1 gm PO QID 05/09/16 [History] Latanoprost [Xalatan] 1 drop BOTH EYES HS 10/01/17 [History] Timolol Maleate 0.5% 1 drop BOTH EYES BID 10/01/17 [History] Clopidogrel [Plavix] 75 mg PO DAILY 08/31/18 [History] Doxepin HCl 10 mg PO HS 08/31/18 [History] [place]-3/Dha/Epa/Fish Oil [Fish Oil 1,000 mg Softgel] 1 tab PO DAILY 08/31/18 [History] Allergy/AdvReac Type Severity Reaction Status Date / Time No Known Allergies Allergy Verified 05/09/16 09:57 - Meds/Allergy Pre-op Review Medications Reviewed: Yes Allergies Reviewed: Yes Beta Blockers on Current Med List: Yes If Beta Blockers taken, Date/Time (Last Dose taken): 10:01 09/03 last dose Anesthesia Results - Labs 09/03/18 05:01 09/03/18 05:01 - Imaging Additional studies: Echo 09/01/18 EF 65-70% Severe p HTN Severe TR Anesthesia Exam Vital Signs/O2 Sat, Most Current Temp Pulse Resp BP Pulse Ox 98.5 F 70 15 115/80 89 09/04/18 06:49 09/04/18 06:49 09/04/18 06:49 09/04/18 06:49 09/04/18 06:49 NPO (# of Hours): > 8 hrs Pain Scale: 0 Pain Scale Used: Numeric (1 - 10) - HEENT Pupil (Motor): Pupils equal, EOMI Mallampati: II Teeth: Edentulous Oral Opening: Greater than 3 - TUBE CLEANING OPERATOR LOC: Oriented TUBE CLEANING OPERATOR Motor: Normal RUE, Normal LUE, Normal RLE, Normal LLE, Normal Face TUBE CLEANING OPERATOR Sensory: Normal: RUE, LUE, RLE, LLE, Face - Cardiac Rhythm: Regular Murmur: None JVD: No Carotid Bruit: No - Pulmonary Breath Sounds: bilateral Clear Respiratory Effort: Symmetrical Anesthesia Assess/Plan ASA Score: 3 Level of consciousness: Cooperative Anesthetic Plan: General Autologous Blood: Yes Recovery Plan: PACU
[2018-09-04] MEDS: Ringers Solution, Lactated 1,000 ML IVC SCH (08:10)
[2018-09-04] MEDS ORDERED: *HR* OxyCODONE Immed Rel 5 MG TABLET PO PRN (08:51)
[2018-09-04] MEDS ORDERED: Ondansetron 4 MG/2 ML VIAL IVP ONE (08:51)
[2018-09-04] MEDS ORDERED: *HR* PHENYLEPHRINE 1,000 MCG/10 ML SYRINGE IVP ONE (09:04)
[2018-09-04] MEDS ORDERED: Indomethacin 50 MG SUPP.RECT RC ONE (09:46)
[2018-09-04] MEDS ORDERED: *HR* Metoprolol 5 MG/5 ML VIAL IVP ONE (10:09)
--- NOTE | 2018-09-04 10:59 | Anesthesia Evaluation Post Op ---
Date of Encounter: 09/04/18 Time of Encounter: 10:58 - Vital Signs Vital Signs: Vital Signs/O2 Sat, Most Current Temp Pulse Resp BP Pulse Ox 98.1 F 65 18 157/70 93 09/04/18 10:50 09/04/18 10:50 09/04/18 10:50 09/04/18 10:50 09/04/18 10:50 - Lungs Lungs: Clear Ascult./Percussion - Airway Airway: Non-obstructed - Cardiovascular Baseline Rhythm - Mental Status Mental Status: Alert & Oriented, Answers Appropriately - Pain Pain Scale: 0 - Nausea Vomiting Nausea Vomiting: Not Present - Hydration Hydration: NPO, Has not voided - Discharge PostOp Status: Transfer Patient to floor
--- NOTE | 2018-09-04 11:06 | Pulmonology Consult Note ---
<Jack Larsen W - Last Filed: 09/04/18 12:47> Date of Encounter: 09/04/18 Medications and Allergies Calcium Carbonate [Calcium] 600 mg PO BID 03/24/16 [History] Diltiazem CD (24hr) [Cardizem CD] 240 mg PO DAILY 03/24/16 [History] Furosemide [Lasix] 40 - 80 mg PO DAILY 03/24/16 [History] Metoprolol XL (24 HR) Succ [Toprol Xl] 100 mg PO DAILY 03/24/16 [History] Omeprazole [PriLOSEC] 40 mg PO DAILY 03/24/16 [History] Potassium Chloride [K-Tab ER] 10 meq PO BID 03/24/16 [History] Atorvastatin [Lipitor] 40 mg PO Q48H 05/09/16 [History] Iron Polysaccharide Complex [Ferrex 150] 150 mg PO BID 05/09/16 [History] Nitroglycerin [Nitrostat] 0.4 mg SL Q5M PRN 05/09/16 [History] Sucralfate [Carafate] 1 gm PO QID 05/09/16 [History] Latanoprost [Xalatan] 1 drop BOTH EYES HS 10/01/17 [History] Timolol Maleate 0.5% 1 drop BOTH EYES BID 10/01/17 [History] Clopidogrel [Plavix] 75 mg PO DAILY 08/31/18 [History] Doxepin HCl 10 mg PO HS 08/31/18 [History] [place]-3/Dha/Epa/Fish Oil [Fish Oil 1,000 mg Softgel] 1 tab PO DAILY 08/31/18 [History] Allergy/AdvReac Type Severity Reaction Status Date / Time No Known Allergies Allergy Verified 05/09/16 09:57 All Systems: The remainder of the systems were reviewed and are negative Physical Examination Vital Signs: Vital Signs, Last 4 Hours Temp Pulse Resp BP Pulse Ox 09/04/18 11:55 73 16 172/105 94 09/04/18 11:25 12 86 09/04/18 11:23 72 16 162/64 94 09/04/18 11:00 98.4 F 68 18 156/77 92 09/04/18 10:50 98.1 F 65 18 157/70 93 09/04/18 10:40 97.8 F 64 18 164/66 93 09/04/18 10:30 97.7 F 63 18 144/63 93 Results - Laboratory Findings CBC and BMP: 09/03/18 05:01 09/03/18 05:01 PT/INR, D-dimer PT 12.2 Seconds (9.4-12.1) H 08/31/18 17:01 Abnormal lab findings: Abnormal lab results RDW 14.6 % (11.5-14.5) H 09/03/18 05:01 PT 12.2 Seconds (9.4-12.1) H 08/31/18 17:01 Glucose 145 mg/dL (70-105) H 09/03/18 05:01 AST 11 Units/L (13-39) L 09/03/18 05:01 B-Natriuretic Peptide 583 pg/mL (Less than 100) H 08/31/18 18:07 Serum Total Protein 5.5 g/dL (6.4-8.9) L 09/03/18 05:01 Albumin 3.2 g/dL (3.5-5.7) L 09/03/18 05:01 Globulin 2.3 g/dL (2.4-3.5) L 09/03/18 05:01 Lipase 7 Units/L (11-82) L 08/31/18 17:01 Urine Clarity Cloudy (Clear) A 08/31/18 20:58 Urine Nitrite Positive (Negative) A 08/31/18 20:58 Ur Leukocyte Esterase Small (Negative) H 08/31/18 20:58 Urine Microscopic WBC 5-15 per hpf (0-3) H 08/31/18 20:58 Ur Squamous Epith Cells Many per lpf (None-Few) H 08/31/18 20:58 Urine Bacteria Many per hpf (None-Few) H 08/31/18 20:58 Ur Culture Indicated? NO. (NO) A 08/31/18 20:58 - Microbiology Findings Microbiology Findings: Microbiology, Last 48 Hours 08/31/18 18:24 Urine Culture - Final Urine,Catheterized Escherichia coli 09/03/18 08:10 Influenza Types A,B Antigen - Final Nasopharyngeal - Clinical Findings Intake & Output: Intake & Output 09/03/18 09/04/18 09/04/18 23:59 07:59 15:59 Intake Total 120 / 120 0 / 0 0 / 0 Output Total 0 / 0 200 / 200 Balance 120 / 120 -200 / -200 0 / 0 Weight 62.6 kg Consult Discharge Plan - Plan Referrals: David Linton DO [Primary Care Provider] - - Attending Attestation I examined this patient and my medical decision-making was reviewed with the Resident Physician. I agree with the documented findings, disposition and treatment plan as described except to the extent set forth below. We independently had [id number] contact with the patient Patient seen and examined at bedside Labs, radiology, chart personally reviewed. Impression: Left pleural effusion Acute on chronic hypoxic respiratory failure Suspected COPD Recs: I personally examined the area with the bedside ultrasound - there is a very small pleural fluid accumulation without any complex features. I have very low concern for hemothorax based upon the appearance She will need aggressive analgesia to prevent splinting Encourage incentive spirometry out of bed to chair and ambulation when she is able to Would schedule bronchodilators for suspected COPD High risk for development of pneumonia Pulmonary will sign off please call with questions <Cayden Farrar S - Last Filed: 09/04/18 14:12> Date of Encounter: 09/04/18 Time of Encounter: 11:06 Assessment and Plan (1) Pleural effusion, left Current Visit: Yes Status: Acute Pt presented with the cc of a fall from standing CXR on 09/03 showed left 7th and 8th rib fx with minimal displacement - small left pleural effusion vs hemothorax Evaluated the pleural effusion with ultrasound with attending - no complex features, will defer draining at this point Plan: - encourage incentive spirometry - encourage OOB to chair - increase movement as tolerated - pain control per primary - pt has a high risk for pneumonia development, continue to monitor clinically - pulmonology will sign off at this time (2) Acute and chronic respiratory failure with hypoxia Current Visit: Yes Status: Acute 94% on 4L - pt denies home oxygen use (3) Suspected chronic obstructive pulmonary disease based on initial evaluation Current Visit: Yes Status: Acute Pt has extensive smoking hx - never formally diagnosed with COPD - duonebs as needed History of Present Illness Consult date: 09/04/18 Requesting physician: Zena Mustafa Reason for consult: pleural effusion, abnormal CXR/CT, other (hemothorax vs pleural effusion) Chief complaint: "I fell" History of present illness: Ms. Mooney is an 82yo female with PMH CAD s/p pacemaker, A fib, multiple stroke, HTN, and HLD who presented on 08/31/18 with the cc of a fall. She is seen at bedside with her this morning. They state that she had a fall from standing without loss of consciousness or head trauma. She did have some bodily trauma and some bruised rubs/arm. The patient denied any numbness/tingling, palpitations preceding the event. She did have some dizziness. Denies any shortness of breath, cough, wheeze, N/V/D, abd pain. Pt continues to complain of pain in the ribs, a dull/throbbing ache. In the ER the pt had CT head which was negative for acute abnormality. Abd/pelvis CTA showed radiodense material thru CBD with intrahepatic biliary ductal dilation. Pt was consulted for CXR on 09/03 showing small left pleural effusion vs hemothorax. Left 7th and 8th rib of with minimal displacement. Ultrasound was used at bedside which showed minimal fluid, will defer draining at this point. Past Med Surg Social Fam HX - Past Medical History Medical history: atrial fibrillation, coronary artery disease, hyperlipidemia, hypertension, TIA, other Additional medical history: ICD. PVD Psychiatric history: no psych history - Past Surgical History Surgical History: other Additional surgical history: Pacemaker - Social History Smoking Status: Former smoker Smokeless Tobacco Status: No Alcohol use: none Drug use: none All Systems: The remainder of the systems were reviewed and are negative - Constitutional Constitutional: weakness, no chills, no fatigue, no fever(s) - Cardiovascular Cardiovascular: no chest pain at rest, no chest pain with activity, no dyspnea, no dyspnea on exertion, no palpitations - Respiratory Respiratory: no cough, no dyspnea, no hemoptysis, no dyspnea on exertion - Gastrointestinal Gastrointestinal: no abdominal pain, no diarrhea, no melena, no nausea, no vomiting - Musculoskeletal Musculoskeletal: arthralgias, muscle weakness, myalgias - Neurological Neurological: frequent falls, lack of coordination, no headache(s) Physical Examination Vital Signs: Vital Signs, Last 4 Hours Temp Pulse Resp BP Pulse Ox 09/04/18 11:00 98.4 F 68 18 156/77 92 09/04/18 10:50 98.1 F 65 18 157/70 93 09/04/18 10:40 97.8 F 64 18 164/66 93 09/04/18 10:30 97.7 F 63 18 144/63 93 09/04/18 08:07 98 F 72 16 147/66 92 General appearance: no acute distress Eyes: nonicteric ENT: oropharynx moist Mallampati (class): 2 Effort: normal Inspection: normal Auscultation: bilateral: diminished breath sounds Cardiovascular: regular rate and rhythm Gastrointestinal: soft, non-tender, non-distended Integumentary: normal Extremities: no edema Musculoskeletal: other (brusing to left UE and left ribs) normal mental status, non-focal exam mood appropriate, affect normal Results - Laboratory Findings CBC and BMP: 09/03/18 05:01 09/03/18 05:01 PT/INR, D-dimer PT 12.2 Seconds (9.4-12.1) H 08/31/18 17:01 Abnormal lab findings: Abnormal lab results RDW 14.6 % (11.5-14.5) H 09/03/18 05:01 PT 12.2 Seconds (9.4-12.1) H 08/31/18 17:01 Glucose 145 mg/dL (70-105) H 09/03/18 05:01 AST 11 Units/L (13-39) L 09/03/18 05:01 B-Natriuretic Peptide 583 pg/mL (Less than 100) H 08/31/18 18:07 Serum Total Protein 5.5 g/dL (6.4-8.9) L 09/03/18 05:01 Albumin 3.2 g/dL (3.5-5.7) L 09/03/18 05:01 Globulin 2.3 g/dL (2.4-3.5) L 09/03/18 05:01 Lipase 7 Units/L (11-82) L 08/31/18 17:01 Urine Clarity Cloudy (Clear) A 08/31/18 20:58 Urine Nitrite Positive (Negative) A 08/31/18 20:58 Ur Leukocyte Esterase Small (Negative) H 08/31/18 20:58 Urine Microscopic WBC 5-15 per hpf (0-3) H 08/31/18 20:58 Ur Squamous Epith Cells Many per lpf (None-Few) H 08/31/18 20:58 Urine Bacteria Many per hpf (None-Few) H 08/31/18 20:58 Ur Culture Indicated? NO. (NO) A 08/31/18 20:58 - Microbiology Findings Microbiology Findings: Microbiology, Last 48 Hours 08/31/18 18:24 Urine Culture - Final Urine,Catheterized Escherichia coli 09/03/18 08:10 Influenza Types A,B Antigen - Final Nasopharyngeal - Clinical Findings Intake & Output: Intake & Output 09/03/18 09/04/18 09/04/18 23:59 07:59 15:59 Intake Total 120 / 120 0 / 0 0 / 0 Output Total 0 / 0 200 / 200 Balance 120 / 120 -200 / -200 0 / 0 Weight 62.6 kg
[2018-09-04] MEDS: Furosemide 20 MG/2 ML VIAL IVP SCH ×2 (11:54→18:42)
--- NOTE | 2018-09-04 12:22 | Gastroenterology Consult Note ---
<Steven Linda - Last Filed: 09/04/18 12:20> Date of Encounter: 09/04/18 Time of Encounter: 11:45 - Assessment and plan (1) Choledocholithiasis Current Visit: Yes Status: Acute Assessment and plan: CTA showed radiodense material throughout the common duct with intrahepatic biliary ductal dilation likely representing stones. RUQ US shows CBD dilated to 11 mm. On admission: TB 1.2, AST 26, ALT 24, alk phos 120. Today: TB 0.5, AST 11, ALT 15, alk phos 84. ERCP completed this morning with many stones (>10) removed and large amount of sludge swept from the duct. Temporary stent placed. Repeat ERCP in 2 months for temporary stent removal. Follow up with Dr. Santiago in GI office in 1-2 weeks. - Time Spent With Patient Total time spent is greater than 50% in coordination of care (as documented) at patient's floor/unit and/or counseling patient: GI History of Present Illness - Data of Consult Patient: known to practice within the last 3 years Consult date: 09/04/18 Requesting Physician: Dieudonne Ponce MD - Consult Narrative Reason for consult: choledocholithiasis History of present illness: Ms. Mooney is a 82 year old female with PMHx of Afib, CAD with pacemaker, HLD, HTN, TIA who presented to the ED after a fall. She reports she was walking from one room to the other at home, began to feel dizzy, and fell over. She denies fever, chills, headache, chest pain, shortness of breath, abdominal pain, nausea, vomiting, diarrhea, hematemesis, melena, or hematochezia. We were consulted to evaluate choledocholithiasis. CTA showed radiodense material throughout the common duct with intrahepatic biliary ductal dilation likely representing stones. RUQ US shows CBD dilated to 11 mm. TB slightly elevated on admission to 1.2, today TB 0.5 with normal LFTs. Procedures: EUS 11/27/2014 Dr. Santiago: Dilated CBD, normal gallbladder. Colonoscopy 11/11/2012 Dr. Centeno: Diverticulosis, two hyperplastic polyps. EGD 05/30/2012 Dr. Centeno: Normal. NSAIDs: None Anticoagulation: Plavix Past Med Surg Social Fam HX - Past Medical History Medical history: atrial fibrillation, coronary artery disease, hyperlipidemia, hypertension, TIA, other Additional medical history: ICD. PVD Psychiatric history: no psych history - Past Surgical History Surgical History: other Additional surgical history: Pacemaker - Social History Smoking Status: Former smoker Smokeless Tobacco Status: No Alcohol use: none Drug use: none - Gastrointestinal Gastrointestinal: Present: as per HPI - Constitutional Constitutional: as per HPI - EENT Eyes: as per HPI Ears: Present: as per HPI Nose, mouth and throat: Present: as per HPI - Cardiovascular Cardiovascular ROS: Present: as per HPI - Respiratory Respiratory IM: Present: as per HPI - Genitourinary Genitourinary: Absent: change in color, Urinary frequency - Neurological ROS Neurological GI: Present: as per HPI - Hematologic/Lymphatic Hematologic/Lymphatic pediatric: Present: as per HPI - Musculoskeletal Musculoskeletal ROS GI: Present: as per HPI - Integumentary Integumentary GI: Present: as per HPI - Psychiatric ROS Psychiatric GI: Present: as per HPI - Endocrine Endocrine IM: Present: as per HPI - Constitutional Vitals: Temp Pulse Resp BP Pulse Ox 98.4 F 72 16 162/64 94 09/04/18 11:00 09/04/18 11:23 09/04/18 11:23 09/04/18 11:23 09/04/18 11:23 General appearance: Present: cooperative, A&O X 3, no acute distress, answers questions appropriately - Head Head exam: Present: atraumatic, normocephalic - Eye Eye exam: Present: normal appearance, sclera anicteric - ENT ENT exam: Present: mucous membranes dry - Neck Neck exam general surgery: Present: normal inspection, trachea midline - Respiratory Respiratory exam: Present: CTAB. Absent: rales, rhonchi - Cardiovascular Cardiovascular exam: Present: RRR, +S1, +S2 - GI/Abdominal GI/Abdominal exam: Present: soft, no peritoneal signs. Absent: distended, firm, guarding, tenderness - Rectal Rectal exam: Present: deferred - Extremities Exam Extremities exam: Present: warm - Neurological Exam Neurological exam: Present: no focal deficits - Psychiatric Psychiatric exam: Present: normal affect, normal mood - Skin Skin exam: Present: dry, intact, normal color, warm Results - Labs CBC & Chem 7: 09/03/18 05:01 09/03/18 05:01 Labs: Last Result Calcium 9.0 mg/dL (8.6-10.3) 09/03/18 05:01 Troponin I < 0.03 ng/mL (< 0.04) 08/31/18 17:01 Entire Visit Hgb 11.6 g/dL (11.5-15.4) 09/03/18 05:01 Hct 36.4 % (35.3-44.9) 09/03/18 05:01 PT 12.2 Seconds (9.4-12.1) H 08/31/18 17:01 Total Bilirubin 0.5 mg/dL (0.3-1.0) 09/03/18 05:01 AST 11 Units/L (13-39) L 09/03/18 05:01 ALT 15 Units/L (7-52) 09/03/18 05:01 Lipase 7 Units/L (11-82) L 08/31/18 17:01 - ABG ABG results: PT/INR, D-dimer PT 12.2 Seconds (9.4-12.1) H 08/31/18 17:01 - Impressions Impressions Ribs X-Ray 09/03/18 11:54 IMPRESSION: Left 7th and 8th rib fractures with minimal displacement. Small left pleural effusion versus hemothorax. D/ : / 09/03/2018 22:53:55 Veto Buenrostro MD / Carolyn Melgar Interpreting Provider: Veto Buenrostro MD Cath/Invasive Procedure 09/04/18 00:00 IMPRESSION: Intraoperative fluoroscopy provided. Please refer to the procedure report for further details. D/ : / 09/04/2018 12:08:15 Sujit Bodwen MD / quintin Interpreting Provider: Sujit Bowden MD Consult Discharge Plan - Plan Referrals: David Linton DO [Primary Care Provider] - <Pablo Santiago - Last Filed: 09/04/18 12:33> Date of Encounter: 09/04/18 Time of Encounter: 09:00 - Time Spent With Patient Total time spent is greater than 50% in coordination of care (as documented) at patient's floor/unit and/or counseling patient: GI History of Present Illness - Data of Consult Requesting Physician: Dieudonne Ponce MD - Consult Narrative History of present illness: Ms. Mooney is a 82 year old female - Constitutional Vitals: Temp Pulse Resp BP Pulse Ox 98.4 F 72 12 162/64 86 09/04/18 11:00 09/04/18 11:23 09/04/18 11:25 09/04/18 11:23 09/04/18 11:25 Results - Labs CBC & Chem 7: 09/03/18 05:01 09/03/18 05:01 Labs: Last Result Calcium 9.0 mg/dL (8.6-10.3) 09/03/18 05:01 Troponin I < 0.03 ng/mL (< 0.04) 08/31/18 17:01 Entire Visit Hgb 11.6 g/dL (11.5-15.4) 09/03/18 05:01 Hct 36.4 % (35.3-44.9) 09/03/18 05:01 PT 12.2 Seconds (9.4-12.1) H 08/31/18 17:01 Total Bilirubin 0.5 mg/dL (0.3-1.0) 09/03/18 05:01 AST 11 Units/L (13-39) L 09/03/18 05:01 ALT 15 Units/L (7-52) 09/03/18 05:01 Lipase 7 Units/L (11-82) L 08/31/18 17:01 - ABG ABG results: PT/INR, D-dimer PT 12.2 Seconds (9.4-12.1) H 08/31/18 17:01 - Impressions Impressions Ribs X-Ray 09/03/18 11:54 IMPRESSION: Left 7th and 8th rib fractures with minimal displacement. Small left pleural effusion versus hemothorax. D/ : / 09/03/2018 22:53:55 Veto Buenrostro MD / Carolyn Melgar Interpreting Provider: Veto Buenrostro MD Cath/Invasive Procedure 09/04/18 00:00 IMPRESSION: Intraoperative fluoroscopy provided. Please refer to the procedure report for further details. D/ / 09/04/2018 12:08:15 Sujit Bowden MD / quintin Interpreting Provider: Sujit Bowden MD - Attending Attestation I have personally performed a face to face evaluation on this patient. I have reviewed and agree with the care plan. History and Exam by me shows: Patient seen patient with the incidental finding of CBD stone denies any abdominal pain . LFTs are normal. Assessment: Patient with multiple comorbidities now with CBD stones. Rec; ERCP procedure including risks explained to the patient
[2018-09-04] MEDS: Diltiazem CD (24hr) 240 MG CAPSULE PO SCH (12:52)
[2018-09-04] MEDS: Cefdinir 300 MG CAPSULE PO SCH ×2 (12:52→19:48)
[2018-09-04] MEDS: Metoprolol XL (24 HR) Succ 50 MG TAB.ER.24H PO SCH (12:53)
[2018-09-04] MEDS: Iron Polysaccharide Complex 150 MG CAPSULE PO SCH ×2 (12:57→19:49)
[2018-09-04] MEDS: Fish Oil 1,000 Mg Softgel PO SCH (12:57)
[2018-09-04] MEDS: Sucralfate 1 GM TABLET PO SCH ×3 (12:57→19:48)
--- NOTE | 2018-09-04 19:31 | Event Note ---
Date of Encounter: 09/04/18 Time of Encounter: 19:29 Patient with asymptomatic choledocholithiasis; No need for acute surgery; can follow up in my clinic for further evaluation if needed; general surgery will sign off; please feel free to call with any new questions or concerns.
[2018-09-04] MEDS: Doxepin Hcl [Doxepin Hcl] 10 MG PO SCH (19:47)
[2018-09-04] MEDS: Latanoprost 2.5 ML BOTTLE BOTH EYES SCH (19:50)
[2018-09-04] MEDS: Acetaminophen 325 MG TABLET PO SCH (23:01)
[2018-09-05] MEDS ORDERED: Aminoglycoside Consult 1 EACH MC ONE (01:21)
[2018-09-05] MEDS: Ipratropium/Albuterol Neb 3 ML IH SCH ×4 (04:25→21:02)
[2018-09-05] MEDS: Ringers Solution, Lactated 1,000 ML IVC SCH (04:37)
[2018-09-05] MEDS: *HR* Heparin 5,000 UNIT/ML VIAL SQ SCH ×2 (05:06→18:07)
[2018-09-05 07:47] LABS: Prothrombin Time 11.6 Seconds (9.4-12.1)
[2018-09-05] MEDS: Iron Polysaccharide Complex 150 MG CAPSULE PO SCH ×2 (09:29→22:26)
[2018-09-05] MEDS: Diltiazem CD (24hr) 240 MG CAPSULE PO SCH (09:29)
[2018-09-05] MEDS: Sucralfate 1 GM TABLET PO SCH ×4 (09:29→22:26)
[2018-09-05] MEDS: Furosemide 20 MG/2 ML VIAL IVP SCH (09:29)
[2018-09-05] MEDS: Metoprolol XL (24 HR) Succ 50 MG TAB.ER.24H PO SCH (09:29)
[2018-09-05] MEDS: Acetaminophen 325 MG TABLET PO SCH ×3 (09:30→22:26)
[2018-09-05] MEDS: Cefdinir 300 MG CAPSULE PO SCH (09:30)
[2018-09-05] MEDS: Fish Oil 1,000 Mg Softgel PO SCH (09:35)
--- NOTE | 2018-09-05 11:24 | Discharge Summary ---
Orders not resulted at time of discharge: Pending orders 08/31/18 18:17 Culture,Blood [BC] Stat Date of Encounter: 09/05/18 Time of Encounter: 11:15 - Discharge Diagnosis (1) Dyspnea Status: Acute Qualifiers: Dyspnea type: other forms of dyspnea Qualified Code(s): R06.09 - Other forms of dyspnea Hospital course: Ms. Mooney is a 82 year old female - Time Spent with Patient Total time spent providing and/or coordinating discharge services: - Discharge Medications Home Medications: Calcium Carbonate [Calcium] 600 mg PO BID 03/24/16 [History] Diltiazem CD (24hr) [Cardizem CD] 240 mg PO DAILY 03/24/16 [History] Furosemide [Lasix] 40 - 80 mg PO DAILY 03/24/16 [History] Metoprolol XL (24 HR) Succ [Toprol Xl] 100 mg PO DAILY 03/24/16 [History] Omeprazole [PriLOSEC] 40 mg PO DAILY 03/24/16 [History] Potassium Chloride [K-Tab ER] 10 meq PO BID 03/24/16 [History] Atorvastatin [Lipitor] 40 mg PO Q48H 05/09/16 [History] Iron Polysaccharide Complex [Ferrex 150] 150 mg PO BID 05/09/16 [History] Nitroglycerin [Nitrostat] 0.4 mg SL Q5M PRN 05/09/16 [History] Sucralfate [Carafate] 1 gm PO QID 05/09/16 [History] Latanoprost [Xalatan] 1 drop BOTH EYES HS 10/01/17 [History] Timolol Maleate 0.5% 1 drop BOTH EYES BID 10/01/17 [History] Clopidogrel [Plavix] 75 mg PO DAILY 08/31/18 [History] Doxepin HCl 10 mg PO HS 08/31/18 [History] [place]-3/Dha/Epa/Fish Oil [Fish Oil 1,000 mg Softgel] 1 tab PO DAILY 08/31/18 [History] Allergies/Adverse Reactions: Allergy/AdvReac Type Severity Reaction Status Date / Time No Known Allergies Allergy Verified 05/09/16 09:57 Date of admission: 08/31/18 22:46 Primary care physician: David Linton DO Consults: 08/31/18 23:18 Consult to Occupational Therapy [CONS] Routine Comment: Evaluate, develop and implement POC Reason for Consult: Left sided weakness Does patient have active BEDREST order?: No Is patient medically & hemodynamically stable?: Yes Patient assessed for mobility or mobilized this visit?: No Consult to Physical Therapy [CONS] Routine Comment: Evaluate, develop and implement POC Reason for Consult: Left sided weakness Does patient have active BEDREST order?: No Is patient medically & hemodynamically stable?: Yes Patient assessed for mobility or mobilized this visit?: No 09/03/18 10:42 Consult to Surgery [CONS] Routine Consulting Provider: [facility] Reason for Consult: Biliary ductal dilatation, possible choledocholihiasis. Please eval/advise.Thank you Time Notified: 10:43 Call Completed: Yes 09/03/18 11:35 Consult to Gastroenterology [CONS] Routine Consulting Provider: Gastroenterology [facility]un Reason for Consult: possible choledocholithiasis on imaging studies. GS advised to consult GI. Time Notified: 11:36 Call Completed: Yes 09/04/18 09:56 Consult to Pulmonology [CONS] Routine Consulting Provider: [facility] [place] Reason for Consult: Pt had a fall before admission. L rib series shows minimal displaced 7th and 8th rib fractures with L pleural effusion vs hemothorax. Please advise further mgmt in context of possible hemothorax. Time Notified: 09:58 Call Completed: Yes - Constitutional Vitals: Temp Pulse Resp BP Pulse Ox 97.8 F 65 16 125/66 95 09/05/18 07:59 09/05/18 07:59 09/05/18 07:59 09/05/18 07:59 09/05/18 07:59 General appearance: Present: cooperative, A&O X 3, pleasant, no acute distress, answers questions appropriately - Patient Status Condition: Good - Discharge Instructions Follow Up With: David Linton DO [Primary Care Provider] -
[2018-09-05 16:06] LABS: Basophils # 0.1 K/mcL (0.0-0.2); Basophils % 0.3 %; Eosinophils % 0.1 %; Hematocrit 36.3 % (35.3-44.9); Hemoglobin 11.5 g/dL (11.5-15.4); Lymphocytes # 1.4 K/mcL (0.6-4.6); Lymphocytes % 8.4 %; Mean Corpuscular HGB Conc 31.7 g/dL (31.6-35.5); Mean Corpuscular Hemoglobin 29.9 pg (28.0-33.3); Mean Corpuscular Volume 94.5 fL (83.0-100.0); Mean Platelet Volume 10.3 fL (9.4-12.4); Monocytes # 1.2 K/mcL (0.0-1.3); Monocytes % 7.4 %; Neutrophils # 13.5 K/mcL (1.6-8.9); Platelet Count 264 K/mcL (140-400); Red Blood Count 3.84 M/mcL (3.82-4.97); Red Cell Distribution Width 14.8 % (11.5-14.5); Segmented Neutrophils % 82.8 %
[2018-09-05 16:18] LABS: BUN/Creatinine Ratio 26 (6-26); Blood Urea Nitrogen 25 mg/dL (8-23); Calcium 9.2 mg/dL (8.6-10.3); Carbon Dioxide 29 mEq/L (23-29); Chloride 96 mEq/L (98-107); Glucose 284 mg/dL (70-105); Osmolality,Calculated 285 (280-300); Potassium 4.9 mEq/L (3.5-5.1); Sodium 130 mEq/L (136-145); eGFR For Non-African Americans 55 (> 60)
[2018-09-05] MEDS ORDERED: Piperacillin/Tazobactam 3.375 GM in 0.9 % Sodium Chloride Mini Bag 100 ML IVP ONE (16:51)
--- NOTE | 2018-09-05 17:56 | Internal Med Progress Note ---
Hospitalist Progress Note - Encounter Date of Encounter: 09/05/18 Time of Encounter: 10:45 - Subjective Interval History: Patient seen and examined today in the presence her . She was also seems briefly a few more times to monitor her saturations throughout the day. Patient denies shortness of breath. Noted that the patient is on 5 L of oxygen today instead of 4 L/m. Her saturations are 92%. The nurse attempted to wean the patient off the oxygen to 4 below and her sats dropped to 89% with minimal exertion in bed at 4 L. The patient denies coughing up any phlegm. A chest x- ray and CBC were obtained and are consistent with a new pneumonia. This was discussed with the patient and her family the patient will not be discharged today and will be started on antibiotics. Yesterday pulmonology saw the patient for fractured ribs and advised pain control and incentive spirometry. This was achieved with acetaminophen and providing the patient with incentive spirometer. - Exam Vitals: Temp Pulse Resp BP Pulse Ox 97.5 F L 70 16 120/73 99 09/05/18 16:01 09/05/18 16:01 09/05/18 16:01 09/05/18 16:01 09/05/18 16:01 Exam: Exam: GEN: AOx3, NAD, resting comfortably in bed; Accompanied by at bedside; resting comfortably currently on 3L O2 via NC HEENT: Atraumatic, normocephalic; EOMI, PERRLA; miotic pupils; mucous membranes moist; sclera anicteric; pink conjunctiva CARDIO: RRR, no murmurs, rubs, gallops RESP: CTAB, no wheezes, rales, rhonchi. Occasional left base crackles. ABD: Soft, non-tender, non-distended; bowel sounds present; no rebound or guarding. SKIN: no buises, bumps, or rash. NEURO: CN 2-12 grossly intact; 5/5 strength RUE, RLE; 4/5 strength LUE and LLE; cerebellar function intact; light touch sensation intact EXT: no lower extremity edema b/l; abrasion at posterior aspect of left elbow; normal radial pulses b/l - Assessment and Plan (1) Pneumonia Current Visit: Yes Status: Acute Assessment and Plan: Start IV vancomycin and Zosyn. Stop cefdinir. Obtain blood cultures before antibiotics started. We will check influenza, Legionella antigen and Streptococcus pneumonia antigen. Oxygen per nasal cannula titrated to saturations. (2) Leukocytosis Current Visit: Yes Status: Acute Assessment and Plan: This is likely from the early pneumonia. Will also repeat urinalysis with reflex culture. (3) Common bile duct dilatation Current Visit: No Status: Acute Assessment and Plan: Pt denies abdominal pain, nausea, vomiting, diarrhea; However, with imaging, identified intrahepatic biliary duct dilation This is from patient's choledocho the TSS which was addressed by ERCP per GI yesterday. (4) Hypokalemia Current Visit: No Status: Acute Assessment and Plan: Resolved. Continue to follow. (5) Near syncope Current Visit: No Status: Acute Assessment and Plan: Ms. Mooney is a 82 year old female with PMHx significant for CAD with pacemaker, paroxysmal AFib, CVA, HTN, HLD who presents to the ED after falling on her left side this morning. MRI brain orderd to rule out CVA as pt has hx of CVA. Pt's had PM card. Per pt's PM card, PM is MRI compatible. PT/OT recommending rehab inpt. Family wants pt at [facility] in [facility] will transfer after pneumonia improves.. (6) UTI (urinary tract infection) Current Visit: No Status: Acute Assessment and Plan: This is from Escherichia coli which has been treated with antibiotics. (7) CAD (coronary artery disease) Current Visit: No Status: Chronic Assessment and Plan: ASA, Plavix, and Atorvastatin (8) HLD (hyperlipidemia) Current Visit: No Status: Chronic Assessment and Plan: Atorvastatin (9) HTN (hypertension) Current Visit: No Status: Chronic Assessment and Plan: Cardizem and Metoprolol (10) Paroxysmal atrial fibrillation Current Visit: No Status: Chronic Assessment and Plan: ASA, Cardizem and Metoprolol DVT Prophylaxis: Heparin - Time Spent with Patient Total time spent is greater than 50% in coordination of care (as documented) at patient's floor/unit and/or counseling patient: Greater than 35 minutes Internal Medicine: Result - Labs CBC & Chem 7: 09/05/18 15:50 09/05/18 15:50 Labs: Short CBC 09/05/18 Range/Units 15:50 WBC 16.3 H D (4.3-11.1) K/mcL Hgb 11.5 (11.5-15.4) g/dL Hct 36.3 (35.3-44.9) % Plt Count 264 (140-400) K/mcL Neutrophils # 13.5 H (1.6-8.9) K/mcL BMP 09/05/18 15:50 Sodium 130 L Potassium 4.9 Chloride 96 L Carbon Dioxide 29 BUN 25 H Creatinine 0.97 Glucose 284 H Calcium 9.2 - ABG Interpretation ABG results: PT/INR, D-dimer PT 11.6 Seconds (9.4-12.1) 09/05/18 07:30 - Impressions Impressions Chest X-Ray 09/05/18 15:28 IMPRESSION: Left pleural effusion remains. Slightly increased left lower lobe atelectasis versus pneumonia. D/ / Denys Longo MD / Denys Longo MD Interpreting Provider: Denys Longo MD Consult Discharge Plan - Plan Referrals: David Linton DO [Primary Care Provider] - (1) Pneumonia Qualifiers: Pneumonia type: due to unspecified organism
[2018-09-05 21:05] LABS: Bilirubin,Urine Negative (Negative); Blood,Urine Negative (Negative); Clarity,Urine Clear (Clear); Color,Urine Yellow (Yellow); Glucose,Urine (UA) 500 mg/dL (Normal); Ketones,Urine Negative (Negative); Leukocyte Esterase,Urine Small (Negative); Nitrite,Urine Negative (Negative); PH,Urine 5.5 pH Units (5.0-8.0); Protein,Urine Negative (Neg-Trace); Specific Gravity,Urine 1.016 (1.010-1.025); Urobilinogen,Urine Normal (Normal)
[2018-09-05 21:07] LABS: Bacteria,Urine None Seen per hpf (None-Few); Hyaline Casts,Urine None Seen per lpf (None-Few); RBC,Urine 0-3 per hpf (0-3); Squamous Epithelial Cell,Urine Many per lpf (None-Few)
[2018-09-05] MEDS: Latanoprost 2.5 ML BOTTLE BOTH EYES SCH (22:26)
[2018-09-05] MEDS: Doxepin Hcl [Doxepin Hcl] 10 MG PO SCH (22:41)
--- NOTE | 2018-09-05 23:59 | Internal Med Progress Note ---
Hospitalist Progress Note - Encounter Date of Encounter: 09/04/18 (Late entry note for 09/04/18) Time of Encounter: 12:00 - Subjective Interval History: Patient seen and examined today in the presence her . She is drowsy from moderate sedation after the ERCP though responds to questions. She denies any chest pain or SOB or abdominal pain. She had alot of bile duct stones removed during this procedure. - Exam Vitals: Reviewed Exam: Exam: GEN: post procedure drowsiness but responds to questions and carole eye contact, NAD, resting comfortably in bed; Accompanied by at bedside; resting comfortably currently on 4L O2 via NC HEENT: Atraumatic, normocephalic; mucous membranes moist; sclera anicteric; pink conjunctiva CARDIO: RRR, no murmurs, rubs, gallops RESP: CTAB, no wheezes, rales, rhonchi. Occasional left base crackles. ABD: Soft, non-tender, non-distended; bowel sounds present; no rebound or guarding. SKIN: no buises, bumps, or rash. NEURO: Grossly intact. EXT: no lower extremity edema b/l; abrasion at posterior aspect of left elbow; normal radial pulses b/l - Assessment and Plan (1) Dyspnea Status: Acute Assessment and Plan: Likely multi-factorial due to volume overload vs pulmonary. Pt is a former smoker that quite 25 years ago. Denies prior hx of COPD. Prior severe pulmonary HTN, moderate aortic regurgitation, and severe tricuspid regurg. Patient is currently needing 2-4 L of oxygen to keep sats of 96%. This could be a new baseline for her. She will be sent to the [facility] on this oxygen setting. (2) Common bile duct dilatation Current Visit: No Status: Acute Assessment and Plan: S/p removal of more than 10 stones. Pt currently post procedure and recovering. Plan to hold till tomorrow AM to make sure no post procedure problems as still with mild drowsiness and needs to be at baseline mental status and no evident post procedure complications. (3) Hypokalemia Current Visit: No Status: Acute Assessment and Plan: K 2.7 replaced with K 40 mEq IV x one now. K 3.8 (4) Near syncope Current Visit: No Status: Acute Assessment and Plan: Ms. Mooney is a 82 year old female with PMHx significant for CAD with pacemaker, paroxysmal AFib, CVA, HTN, HLD who presents to the ED after falling on her left side this morning. MRI brain orderd to rule out CVA as pt has hx of CVA. Pt's had PM card. Per pt's PM card, PM is MRI compatible. PT/OT recommending rehab inpt. Family wants pt at [facility] in [facility] and plan for possible DC tomorrow if stable. (5) UTI (urinary tract infection) Current Visit: No Status: Acute Assessment and Plan: This is from Escherichia coli. Cont current tx. (6) CAD (coronary artery disease) Current Visit: No Status: Chronic Assessment and Plan: ASA, Plavix, and Atorvastatin (7) HLD (hyperlipidemia) Current Visit: No Status: Chronic Assessment and Plan: Atorvastatin (8) HTN (hypertension) Current Visit: No Status: Chronic Assessment and Plan: Cardizem and Metoprolol (9) Paroxysmal atrial fibrillation Current Visit: No Status: Chronic Assessment and Plan: ASA, Cardizem and Metoprolol - Time Spent with Patient Total time spent is greater than 50% in coordination of care (as documented) at patient's floor/unit and/or counseling patient: 25 - 35 minutes Plan of Care Discussed with: family Internal Medicine: Result - Labs CBC & Chem 7: 09/05/18 23:55 09/05/18 23:55 Labs: Short CBC 09/05/18 Range/Units 15:50 WBC 16.3 H D (4.3-11.1) K/mcL Hgb 11.5 (11.5-15.4) g/dL Hct 36.3 (35.3-44.9) % Plt Count 264 (140-400) K/mcL Neutrophils # 13.5 H (1.6-8.9) K/mcL BMP 09/05/18 15:50 Sodium 130 L Potassium 4.9 Chloride 96 L Carbon Dioxide 29 BUN 25 H Creatinine 0.97 Glucose 284 H Calcium 9.2 Urine 09/05/18 Range/Units 20:50 Urine Color Yellow (Yellow) Urine Clarity Clear (Clear) Urine pH 5.5 (5.0-8.0) pH Units Ur Specific Bullock 1.016 (1.010-1.025) Urine Protein Negative (Neg-Trace) mg/dL Urine Glucose (UA) 500 H (Normal) mg/dL - ABG Interpretation ABG results: PT/INR, D-dimer PT 11.6 Seconds (9.4-12.1) 09/05/18 07:30 - Impressions Impressions Chest X-Ray 09/05/18 15:28 IMPRESSION: Left pleural effusion remains. Slightly increased left lower lobe atelectasis versus pneumonia. D/ / Denys Longo MD / Denys Longo MD Interpreting Provider: Denys Longo MD Head CT 09/05/18 21:38 IMPRESSION: No acute intracranial abnormality. Small right parietal lobe old infarction. Mild parenchymal volume loss. Mild chronic microvascular disease. D/ / 09/05/2018 22:28:52 Wojciech Ribeiro MD / Carolyn Melgar Interpreting Provider: Wojciech Ribeiro MD Consult Discharge Plan - Plan Referrals: David Linton DO [Primary Care Provider] - (1) Dyspnea Qualifiers: Dyspnea type: other forms of dyspnea Qualified Code(s): R06.09 - Other forms of dyspnea
[2018-09-06] MEDS ORDERED: ALTEPLASE IVPB ONE (00:16)
[2018-09-06] MEDS ORDERED: Alteplase (Activase) 6 MG in EMPTY BAG 1 EACH IVP ONE (00:16)
[2018-09-06 00:20] LABS: Prothrombin Time 11.5 Seconds (9.4-12.1)
--- NOTE | 2018-09-06 00:22 | Event Note ---
Date of Encounter: 09/06/18 Time of Encounter: 21:45 Informed by resident of patient's change in mental status. The patient's nurse noticed that she was unable to communicate and had unequal pupils. Upon resident and my evaluation, pupils appear equal and reactive, but patient is babbling and not communicating like she had been a few minutes ago. patient also uncooperative with physical exam, but does not seem to have any motor deficits. Stat CT head was ordered which showed: CT/CT head/brain wo con IMPRESSION: No acute intracranial abnormality. Small right parietal lobe old infarction. Mild parenchymal volume loss. Mild chronic microvascular disease. We then called [facility] neurology who then advised to call a stroke alert so that they could evaluate the patient. Dr. Barclay evaluated the patient, discussed the treatment options with the patient's who is at bedside. Dr. Barclay had suspicions of stroke due to the sudden change in mental status and difficulty with speech. Risks and benefits were also discussed and with Dr. Barclay's recommendation, the decision was made to give the patient TPA as she was still within the window for use. Patient had been on subcutaneous heparin during her stay here, but this is not a contraindication for TPA according to Dr. Barclay. Pharmacy was notified, and TPA was administered starting around 0030 on 09/06/18.
[2018-09-06 00:32] LABS: Hematocrit 38.8 % (35.3-44.9); Hemoglobin 12.2 g/dL (11.5-15.4); Mean Corpuscular HGB Conc 31.4 g/dL (31.6-35.5); Mean Corpuscular Hemoglobin 29.9 pg (28.0-33.3); Mean Corpuscular Volume 95.1 fL (83.0-100.0); Mean Platelet Volume 10.6 fL (9.4-12.4); Platelet Count 257 K/mcL (140-400); Red Blood Count 4.08 M/mcL (3.82-4.97); Red Cell Distribution Width 14.7 % (11.5-14.5)
[2018-09-06 01:09] LABS: Alanine Aminotransferase 43 Units/L (7-52); Albumin 3.3 g/dL (3.5-5.7); Albumin/Globulin Ratio 1.4 (1.1-2.2); Alkaline Phosphatase 147 Units/L (34-104); Aspartate Amino Transferase 55 Units/L (13-39); BUN/Creatinine Ratio 25 (6-26); Bilirubin,Total 0.5 mg/dL (0.3-1.0); Blood Urea Nitrogen 24 mg/dL (8-23); Calcium 9.1 mg/dL (8.6-10.3); Carbon Dioxide 26 mEq/L (23-29); Chloride 98 mEq/L (98-107); Globulin 2.4 g/dL (2.4-3.5); Glucose 284 mg/dL (70-105); Osmolality,Calculated 286 (280-300); Potassium 4.8 mEq/L (3.5-5.1); Sodium 131 mEq/L (136-145); Total Protein 5.7 g/dL (6.4-8.9); eGFR For Non-African Americans 55 (> 60)
[2018-09-06 02:19] VITALS: BP 125/56
--- NOTE | 2018-09-06 07:44 | Discharge Summary ---
Orders not resulted at time of discharge: Pending orders 09/05/18 17:43 Culture,Blood [BC] Stat Date of Encounter: 09/06/18 Time of Encounter: 01:30 - Discharge Diagnosis (1) CVA (cerebral vascular accident) Priority: Primary Status: Acute Assessment and Plan: Transfer to [facility] after TPA administration. Qualifiers: CVA mechanism: unspecified Qualified Code(s): I63.9 - Cerebral infarction, unspecified Hospital course: Ms. Mooney is a 82 year old female Informed by resident of patient's change in mental status. The patient's nurse noticed that she was unable to communicate and had unequal pupils. Upon resident and my evaluation, pupils appear equal and reactive, but patient is babbling and not communicating like she had been a few minutes ago. patient also uncooperative with physical exam, but does not seem to have any motor deficits. Stat CT head was ordered which showed: CT/CT head/brain wo con IMPRESSION: No acute intracranial abnormality. Small right parietal lobe old infarction. Mild parenchymal volume loss. Mild chronic microvascular disease. We then called [facility] neurology who then advised to call a stroke alert so that they could evaluate the patient. Dr. Barclay evaluated the patient, discussed the treatment options with the patient's who is at bedside. Dr. Barclay had suspicions of stroke due to the sudden change in mental status and difficulty with speech. There were no noticable motor deficits on exam. Risks and benefits were also discussed and with Dr. Barclay's recommendation, the decision was made to give the patient TPA as she was still within the window for use. Patient had been on subcutaneous heparin during her stay here, but this is not a contraindication for TPA according to Dr. Barclay. Pharmacy was notified, and TPA was administered starting around 0030 on 09/06/18. Air transport arrived at around 120am and patient was airlifted to [facility] for further management. - Time Spent with Patient Total time spent providing and/or coordinating discharge services: - Discharge Medications Home Medications: Calcium Carbonate [Calcium] 600 mg PO BID 03/24/16 [History] Diltiazem CD (24hr) [Cardizem CD] 240 mg PO DAILY 03/24/16 [History] Furosemide [Lasix] 40 - 80 mg PO DAILY 03/24/16 [History] Metoprolol XL (24 HR) Succ [Toprol Xl] 100 mg PO DAILY 03/24/16 [History] Omeprazole [PriLOSEC] 40 mg PO DAILY 03/24/16 [History] Potassium Chloride [K-Tab ER] 10 meq PO BID 03/24/16 [History] Atorvastatin [Lipitor] 40 mg PO Q48H 05/09/16 [History] Iron Polysaccharide Complex [Ferrex 150] 150 mg PO BID 05/09/16 [History] Nitroglycerin [Nitrostat] 0.4 mg SL Q5M PRN 05/09/16 [History] Sucralfate [Carafate] 1 gm PO QID 05/09/16 [History] Latanoprost [Xalatan] 1 drop BOTH EYES HS 10/01/17 [History] Timolol Maleate 0.5% 1 drop BOTH EYES BID 10/01/17 [History] Clopidogrel [Plavix] 75 mg PO DAILY 08/31/18 [History] Doxepin HCl 10 mg PO HS 08/31/18 [History] Kennan-3/Dha/Epa/Fish Oil [Fish Oil 1,000 mg Softgel] 1 tab PO DAILY 08/31/18 [History] Allergies/Adverse Reactions: Allergy/AdvReac Type Severity Reaction Status Date / Time No Known Allergies Allergy Verified 05/09/16 09:57 Date of admission: 08/31/18 22:46 Primary care physician: David Linton DO Consults: 08/31/18 23:18 Consult to Occupational Therapy [CONS] Routine Comment: Evaluate, develop and implement POC Reason for Consult: Left sided weakness Does patient have active BEDREST order?: No Is patient medically & hemodynamically stable?: Yes Patient assessed for mobility or mobilized this visit?: No Consult to Physical Therapy [CONS] Routine Comment: Evaluate, develop and implement POC Reason for Consult: Left sided weakness Does patient have active BEDREST order?: No Is patient medically & hemodynamically stable?: Yes Patient assessed for mobility or mobilized this visit?: No 09/03/18 10:42 Consult to Surgery [CONS] Routine Consulting Provider: [facility] Reason for Consult: Biliary ductal dilatation, possible choledocholihiasis. Please eval/advise.Thank you Time Notified: 10:43 Call Completed: Yes 09/03/18 11:35 Consult to Gastroenterology [CONS] Routine Consulting Provider: Gastroenter[facility] Reason for Consult: possible choledocholithiasis on imaging studies. GS advised to consult GI. Time Notified: 11:36 Call Completed: Yes 09/04/18 09:56 Consult to Pulmonology [CONS] Routine Consulting Provider: [facility] Reason for Consult: Pt had a fall before admission. L rib series shows minimal displaced 7th and 8th rib fractures with L pleural effusion vs hemothorax. Please advise further mgmt in context of possible hemothorax. Time Notified: 09:58 Call Completed: Yes - Constitutional Vitals: Temp Pulse Resp BP Pulse Ox 97.3 F L 67 16 125/56 89 09/05/18 20:30 09/05/18 20:30 09/05/18 21:02 09/06/18 01:07 09/05/18 21:02 Exam: Patient had acute stroke, inability to form words, did not answer questions appropriately and could not identify various objects in a picture. - Patient Status Disposition: Transfer Critical Access Hosp Condition: Good - Discharge Instructions Follow Up With: David Linton DO [Primary Care Provider] -
[2018-09-06] MEDS ORDERED: Furosemide 20 MG/2 ML VIAL IVP SCH (09:00)
== END 2018-09-06 01:22 | disposition critical access hospital (66) | DRG 408 ==
LOC: EMEROOARM 16:44 → 2NENU 22:46
PROVIDERS: ADMIT Internal Medicine; ATTEND Internal Medicine